=== PATIENT | male | born 1945 | race Caucasian/White ===

== ENCOUNTER 2018-04-26 09:43 | Observation (INO) ==
[2018-04-27 11:48] VITALS: BP 172/73
== END 2018-04-27 13:17 | disposition home or self-care (01) ==
LOC: N.EDINP 09:43 → N.ED 09:43 → N.TELES 14:24
PROVIDERS: ADMIT Internal Medicine Cardiovascular Disease; ATTEND Internal Medicine Cardiovascular Disease

== ENCOUNTER 2019-10-21 10:39 | Inpatient (IN) ==
[2019-10-21] MEDS ORDERED: NITROGLYCERIN 2% OINT 1 INCH/GM PACK TOP STA (10:58)
[2019-10-21] MEDS ORDERED: ASPIRIN 325 MG TABLET PO STA (10:58)
[2019-10-21] MEDS ORDERED: PRASUGREL 10 MG TABLET PO STA ×2 (11:05→14:57)
[2019-10-21 11:12] LABS: INR 0.9; PT Patient Result 10.3 SECS (9.6-12.2); Partial Thromboplastin Time 23.2 SECS (20.8-36.0)
[2019-10-21 11:21] LABS: Albumin 3.5 G/DL (3.4-5.0); Bilirubin,Total 0.4 MG/DL (0.2-1.0); Calcium 8.6 MG/DL (8.5-10.1); Osmolality,Calculated 279.8 MOS/KG (273-304)
[2019-10-21] MEDS ORDERED: ENOXAPARIN 100 MG/ML SYRINGE SUBCUT STA (11:25)
[2019-10-21 11:29] LABS: Basophils # 0.1 10*3/uL (0.0-0.2); Eosinophils # 0.2 10*3/uL (0.0-0.87); Eosinophils % 2.5 % (0.00-10.9); Hematocrit 38.7 VOL% (42.0-52.0); Hemoglobin 12.6 GM/DL (14.0-18.0); Immature Granulocytes % 0.5 %; Immature Granulocytes Absolute 0.04 #; Lymphocytes # 2.2 10*3/uL (1.4-4.0); Lymphocytes % 25.6 % (21.2-54.2); Mean Corpuscular HGB Conc 32.6 GM/DL (32-36); Mean Platelet Volume 11.2 FL (9.6-12.0); Monocytes % 9.1 % (1.7-12.7); Neutrophils % 61.3 % (38.7-73.9); Platelet Count 141 T/CUMM (130-400); White Blood Count 8.7 T/CUMM (4-12)
[2019-10-21] MEDS ORDERED: ALUM/MAG/SIMETH/LIDO VISC 1:1 30 ML BOTTLE PO STA (12:18)
[2019-10-21] MEDS ORDERED: NITROGLYCERIN DRIP 50 MG/250 ML BOTTLE IV ONE ×2 (15:00→19:40)
[2019-10-21 15:03] LABS: Apearance,Urine CLEAR (Clear); Bilirubin,Urine Negative (Negative); Blood, Urine Small mg/dL (Negative); Glucose,Urine (UA) Negative (Negative); Ketones,Urine 5 mg/dL (Negative); Mucus,Urine Occasional /LPF (Occasional); Nitrite,Urine Negative (Negative); Protein,Urine Negative; RBC,Urine 25 /HPF (0-4); Urine Urobilinogen < 2.0 EU/DL (0.2-1.0)
[2019-10-21] MEDS ORDERED: LIDOCAINE 1% 20 ML VIAL ONE (15:09)
[2019-10-21] MEDS ORDERED: HEPARIN/NACL 0.9% 2 UNITS/ML 1,000 ML IV ONE (15:09)
[2019-10-21] MEDS: NITROGLYCERIN DRIP 50 MG/250 ML BOTTLE IV PRN (15:15)
[2019-10-21 15:17] LABS: Urine Color CBN (Yellow)
[2019-10-21] MEDS ORDERED: MIDAZOLAM 2 MG/2 ML VIAL ONE ×3 (16:08→17:51)
[2019-10-21] MEDS ORDERED: fentaNYL 100 MCG/2 ML VIAL ONE (16:08)
[2019-10-21] MEDS ORDERED: ENOXAPARIN 30 MG/0.3 ML SYRINGE ONE (16:26)
[2019-10-21] MEDS ORDERED: EPTIFIBATIDE 75 MG/100 ML BOTTLE IV ONE (16:27)
[2019-10-21] MEDS ORDERED: EPTIFIBATIDE 20,000 MCG/10 ML VIAL ONE (16:27)
[2019-10-21] MEDS ORDERED: HEPARIN/NACL 0.9% 2 UNITS/ML 500 ML IV ONE ×2 (16:46→19:40)
[2019-10-21] MEDS ORDERED: BIVALIRUDIN 250 MG VIAL IV ONE (17:09)
[2019-10-21] MEDS ORDERED: MORPHINE 10 MG/1 ML VIAL ONE (17:13)
[2019-10-21] MEDS ORDERED: MIDAZOLAM 10 MG/2 ML VIAL ONE (18:01)
[2019-10-21] MEDS ORDERED: SUFentanil 250 MCG/5 ML AMP ONE (18:01)
[2019-10-21] MEDS ORDERED: VANCOMYCIN 500 MG VIAL ONE (18:08)
[2019-10-21] MEDS ORDERED: PAPAVERINE 60 MG/2 ML VIAL ONE (18:08)
[2019-10-21] MEDS ORDERED: VANCOMYCIN 1,000 MG VIAL ONE (18:08)
[2019-10-21] MEDS ORDERED: CEFUROXIME 1,500 MG VIAL ONE (18:32)
[2019-10-21] MEDS ORDERED: POTASSIUM CHLORIDE RIDER 100 ML IV ONE ×2 (18:36→23:22)
[2019-10-21] MEDS ORDERED: CALCIUM CHLORIDE 1,000 MG/10 ML SYRINGE IV ONE ×2 (18:36→23:03)
[2019-10-21] MEDS ORDERED: NITROPRUSSIDE 50 MG/2 ML VIAL ONE (18:36)
[2019-10-21] MEDS ORDERED: PHENYLEPHRINE DRIP 40 MG/250 ML PREMIX IV ONE (18:36)
[2019-10-21] MEDS ORDERED: SODIUM BICARBONATE 50 MEQ/50 ML VIAL IV ONE ×4 (18:36→23:03)
[2019-10-21 19:09] LABS: ABG Base Excess -3.7 MMOL/L (-2.5-2.5); ABG HCO3 21.4 MMOL/L (20-26); ABG Oxygen Saturation 99.2 % (95-100); ABG PCO2 35.2 MM HG (35-48); ABG PH 7.379 (7.35-7.45); ABG TCO2 18.4 MMOL/L (23-27); Glucose Heart Surgery 215 MG/DL (74-106); Hematocrit Heart Surgery 37.4 PERCENT (42-52); Hemoglobin Heart Surgery 12.2 G/DL (14.0-18.0); Ionized Calcium Arterial 1.11 MMOL/L (1.21-1.46); PCO2 Patient Temp Arterial 35.2 MMHG; PH Patient Temp Arterial 7.379; Patient Temperature 37 CELCIUS; Potassium Heart/CVR 4.2 MMOL/L (3.5-5.1); Sodium Heart/CVR 135 MMOL/L (135-145)
[2019-10-21] MEDS ORDERED: VECURONIUM 10 MG VIAL IV ONE ×2 (19:40→23:18)
[2019-10-21] MEDS ORDERED: PHENYLEPHRINE DRIP 20 MG/250 ML PREMIX IV ONE (19:40)
[2019-10-21] MEDS ORDERED: AMINOCAPROIC ACID 5,000 MG/20 ML VIAL ONE (19:41)
[2019-10-21 19:46] LABS: Hematocrit Heart Surgery 22.1 PERCENT (42-52); Hemoglobin Heart Surgery 7.1 G/DL (14.0-18.0); PCO2 Patient Temp Venous 35.2 MM HG; PH Patient Temp Venous 7.41; PO2 Patient Temp Venous 44.5 MM HG; Potassium Heart/CVR 4.9 MMOL/L (3.5-5.1); VBG HCO3 22.5 MEQ/L (24-28); VBG Oxygen Saturation 80.9 %; VBG PCO2 35.2 MMHG (41-51); VBG PH 7.41; VBG PO2 44.5 MMHG (17-40)
[2019-10-21 20:20] LABS: Hemoglobin Heart Surgery 7.4 G/DL (14.0-18.0); PCO2 Patient Temp Venous 34.4 MM HG; PH Patient Temp Venous 7.465; PO2 Patient Temp Venous 39.1 MM HG; Potassium Heart/CVR 5.1 MMOL/L (3.5-5.1); VBG Base Excess 1.2 MEQ/L (0-4); VBG HCO3 25.2 MEQ/L (24-28); VBG Oxygen Saturation 75.9 %; VBG PCO2 34.4 MMHG (41-51); VBG PH 7.465; VBG PO2 39.1 MMHG (17-40)
[2019-10-21 20:39] LABS: Apearance,Urine CLEAR (Clear); Bilirubin,Urine Negative (Negative); Blood, Urine Large mg/dL (Negative); Glucose,Urine (UA) Negative (Negative); Ketones,Urine Negative (Negative); Mucus,Urine Occasional /LPF (Occasional); Nitrite,Urine Negative (Negative); Protein,Urine Negative; RBC,Urine 29 /HPF (0-4); Urine Color Yellow (Yellow); Urine Specific Gravity 1.018 (1.001-1.035); Urine Urobilinogen < 2.0 EU/DL (0.2-1.0); WBC,Urine 1 /HPF (0-6)
[2019-10-21] MEDS ORDERED: THROMBIN TOPICAL (RECOMBINANT) 5,000 UNIT VIAL TOP ONE (21:12)
[2019-10-21 21:18] LABS: ABG Base Excess -0.3 MMOL/L (-2.5-2.5); ABG HCO3 24.2 MMOL/L (20-26); ABG Oxygen Saturation 99.6 % (95-100); ABG PCO2 34.4 MM HG (35-48); ABG PH 7.442 (7.35-7.45); ABG TCO2 22.1 MMOL/L (23-27); Glucose Heart Surgery 306 MG/DL (74-106); Hemoglobin Heart Surgery 7.4 G/DL (14.0-18.0); PCO2 Patient Temp Arterial 34.4 MMHG; PH Patient Temp Arterial 7.442; Patient Temperature 37 CELCIUS; Potassium Heart/CVR 4.1 MMOL/L (3.5-5.1); Sodium Heart/CVR 134 MMOL/L (135-145)
[2019-10-21] MEDS ORDERED: DEXTROSE 5% KCL 20 MEQ 20 MEQ/1,000 ML BAG IV ONE (21:20)
[2019-10-21] MEDS ORDERED: LIDOCAINE 2% 5 ML VIAL ONE ×2 (21:20→23:18)
[2019-10-21] MEDS ORDERED: MANNITOL 100 GM/500 ML BAG IV ONE (21:20)
[2019-10-21] MEDS ORDERED: methylPREDNISolone SOD SUC 1,000 MG/8 ML VIAL ONE (21:21)
[2019-10-21] MEDS ORDERED: ALBUMIN 25% 25 GM/100 ML VIAL IV ONE (21:21)
[2019-10-21] MEDS ORDERED: ALBUMIN 5% 12.5 GM/250 ML VIAL IV ONE (21:21)
[2019-10-21] MEDS ORDERED: PROTAMINE SULFATE 250 MG/25 ML VIAL IV ONE (21:21)
[2019-10-21] MEDS ORDERED: FUROSEMIDE 20 MG/2 ML VIAL ONE (21:21)
[2019-10-21] MEDS ORDERED: HEPARIN 10,000 UNIT/10 ML VIAL ONE (21:21)
[2019-10-21] MEDS ORDERED: MAGNESIUM SULFATE 5 GM/10 ML VIAL IV ONE (21:21)
[2019-10-21] MEDS ORDERED: PROTAMINE SULFATE 50 MG/5 ML VIAL IV ONE (21:22)
[2019-10-21] MEDS ORDERED: EPINEPHrine 1 MG/ML VIAL ONE ×2 (22:22→23:18)
[2019-10-21] MEDS: PHENYLEPHRINE DRIP 40 MG/250 ML PREMIX IV PRN (22:40)
[2019-10-21] MEDS: SODIUM CHLORIDE 0.45% 1,000 ML IV SCH ×2 (22:40)
[2019-10-21] MEDS ORDERED: DOBUTamine 500 MG/250 ML PREMIX IV PRN (22:44)
[2019-10-21] MEDS ORDERED: methylPREDNISolone SOD SUC 125 MG/2 ML VIAL IV ONE (23:01)
[2019-10-21] MEDS ORDERED: methylPREDNISolone SOD SUC 40 MG/1 ML VIAL ONE (23:01)
[2019-10-21 23:14] LABS: ABG Base Excess -5.5 MMOL/L (-2.5-2.5); ABG HCO3 19.8 MMOL/L (20-26); ABG Oxygen Saturation 99.7 % (95-100); ABG PCO2 44.1 MM HG (35-48); ABG PH 7.282 (7.35-7.45); ABG TCO2 19.9 MMOL/L (23-27); Glucose Heart Surgery 469 MG/DL (74-106); Hematocrit Heart Surgery 21.4 PERCENT (42-52); Hemoglobin Heart Surgery 6.8 G/DL (14.0-18.0); Potassium Heart/CVR 2.9 MMOL/L (3.5-5.1)
[2019-10-21] MEDS ORDERED: diphenhydrAMINE 50 MG/1 ML VIAL ONE (23:15)
[2019-10-21] MEDS ORDERED: CALCIUM CHLORIDE 1,000 MG/10 ML VIAL IV ONE ×2 (23:18→23:19)
[2019-10-21] MEDS ORDERED: SEVOFLURANE 1 UNIT/15 MINUTE INH ONE (23:18)
[2019-10-21] MEDS ORDERED: ETOMIDATE 40 MG/20 ML VIAL IV ONE (23:18)
[2019-10-21] MEDS ORDERED: DOBUTamine 500 MG/250 ML PREMIX IV ONE (23:18)
[2019-10-21] MEDS ORDERED: SODIUM CHLORIDE 0.9% 1,000 ML IV ONE (23:19)
[2019-10-21] MEDS ORDERED: LACTATED RINGERS 1,000 ML IV ONE (23:19)
[2019-10-21] MEDS ORDERED: SUCCINYLCHOLINE 200 MG/10 ML VIAL ONE (23:19)
[2019-10-21] MEDS ORDERED: SODIUM CHLORIDE 0.9% 250 ML IV ONE (23:19)
[2019-10-21] MEDS ORDERED: SODIUM CHLORIDE 0.9% 100 ML IV ONE (23:19)
[2019-10-21 23:20] LABS: Basophils # 0.1 10*3/uL (0.0-0.2); Basophils % 0.4 % (0.0-0.8); Eosinophils # 0.1 10*3/uL (0.0-0.87); Eosinophils % 0.3 % (0.00-10.9); Hematocrit 20.3 VOL% (42.0-52.0); Immature Granulocytes % 1.5 %; Immature Granulocytes Absolute 0.29 #; Lymphocytes # 3.8 10*3/uL (1.4-4.0); Lymphocytes % 19.9 % (21.2-54.2); Mean Corpuscular Volume 94.4 FL (87-102); Mean Platelet Volume 11.2 FL (9.6-12.0); Monocytes % 8.6 % (1.7-12.7); Neutrophils % 69.3 % (38.7-73.9); Platelet Count 192 T/CUMM (130-400); Red Blood Count 2.15 MC/CUMM (3.8-5.5); Red Cell Distribution Width 14.1 % (9.3-17.3); White Blood Count 19.1 T/CUMM (4-12)
[2019-10-21] MEDS ORDERED: LACTATED RINGERS 250 ML IV PRN (23:22)
[2019-10-21] MEDS ORDERED: ACETAMINOPHEN 650 MG SUPP RECTAL PRN (23:22)
[2019-10-21] MEDS ORDERED: MIDAZOLAM 10 MG/2 ML VIAL IV PRN (23:22)
[2019-10-21] MEDS ORDERED: ONDANSETRON 4 MG/2 ML VIAL IV PRN ×2 (23:22)
[2019-10-21] MEDS ORDERED: NITROGLYCERIN DRIP 50 MG/250 ML BOTTLE IV PRN (23:22)
[2019-10-21] MEDS ORDERED: ENOXAPARIN 40 MG/0.4 ML SYRINGE SUBCUT SCH (23:22)
[2019-10-21] MEDS ORDERED: PRASUGREL 10 MG TABLET PO ONE (23:22)
[2019-10-21] MEDS ORDERED: DEXTROSE 50% 25 GM/50 ML SYRINGE IV PRN ×3 (23:22)
[2019-10-21] MEDS ORDERED: VECURONIUM 10 MG VIAL IV PRN ×2 (23:22)
[2019-10-21] MEDS ORDERED: SODIUM CHLORIDE 0.9% 1,000 ML IV SCH (23:22)
[2019-10-21] MEDS ORDERED: CALCIUM CHLORIDE 1,000 MG/10 ML SYRINGE IV PRN (23:22)
[2019-10-21] MEDS ORDERED: NITROPRUSSIDE 100 MG in DEXTROSE 5% 250 ML IV PRN (23:22)
[2019-10-21] MEDS ORDERED: INSULIN REGULAR 100 UNIT/ML IV ONE (23:22)
[2019-10-21] MEDS ORDERED: GLUCAGON 1 MG VIAL IM PRN (23:22)
[2019-10-21] MEDS ORDERED: MIDAZOLAM 2 MG/2 ML VIAL IV PRN (23:22)
[2019-10-21] MEDS ORDERED: MAGNESIUM SULF RIDER 4 GM in PREMIX 1 EACH IV PRN (23:22)
[2019-10-21] MEDS: POTASSIUM CHLORIDE RIDER 20 MEQ in PREMIX 1 EACH IV PRN (23:23)
[2019-10-21 23:25] LABS: Hemoglobin 6.3 GM/DL (14.0-18.0)
[2019-10-21] MEDS ORDERED: AMIODARONE 150 MG/3 ML VIAL ONE (23:30)
[2019-10-21 23:35] LABS: INR 1.3; PT Patient Result 13.6 SECS (9.6-12.2)
[2019-10-21] MEDS ORDERED: AMIODARONE INJ 150 MG in DEXTROSE 5% 100 ML IV ONE (23:35)
[2019-10-21 23:46] LABS: Albumin 2.1 G/DL (3.4-5.0); Bilirubin,Total 0.6 MG/DL (0.2-1.0); Calcium 9.8 MG/DL (8.5-10.1); Total Protein 4.1 G/DL (6.4-8.3)
[2019-10-21] MEDS: LACTATED RINGERS 1,000 ML IV PRN (23:55)
[2019-10-22 00:02] LABS: ABG Base Excess -9.2 MMOL/L (-2.5-2.5); ABG HCO3 18.3 MMOL/L (20-26); ABG Oxygen Saturation 98.1 % (95-100); ABG PCO2 47.2 MM HG (35-48); ABG PO2 184.1 MM HG (80-95); ABG TCO2 19.8 MMOL/L (23-27); Glucose Heart Surgery 433 MG/DL (74-106); Hemoglobin Heart Surgery 9.8 G/DL (14.0-18.0); Potassium Heart/CVR 3.4 MMOL/L (3.5-5.1)
[2019-10-22 00:03] LABS: ABG PH 7.207 (7.35-7.45)
[2019-10-22 00:20] LABS: CKMB % 6.1 %
[2019-10-22 00:22] LABS: Troponin I > 200.000 NG/ML (0.00-0.045)
[2019-10-22] MEDS: AMIODARONE INJ 450 MG in DEXTROSE 5% 241 ML IV SCH ×3 (00:27→20:59)
[2019-10-22 00:50] LABS: VBG Base Excess -13.2 MEQ/L (0-4); VBG Oxygen Saturation 83.6 %; VBG PCO2 46.4 MMHG (41-51); VBG PH 7.139; VBG PO2 54.9 MMHG (17-40)
[2019-10-22 00:51] LABS: ABG Base Excess -13.3 MMOL/L (-2.5-2.5); ABG HCO3 13.2 MMOL/L (20-26); ABG Oxygen Saturation 99.1 % (95-100); ABG PCO2 32.7 MM HG (35-48); ABG PH 7.225 (7.35-7.45); ABG PO2 388.9 MM HG (80-95); ABG TCO2 14.2 MMOL/L (23-27); Glucose Heart Surgery 423 MG/DL (74-106); Hemoglobin Heart Surgery 10.6 G/DL (14.0-18.0); Potassium Heart/CVR 3.5 MMOL/L (3.5-5.1)
[2019-10-22] MEDS ORDERED: diphenhydrAMINE 50 MG/1 ML VIAL IV ONE (00:52)
[2019-10-22] MEDS ORDERED: SODIUM BICARBONATE 50 MEQ/50 ML VIAL IV ONE ×2 (00:52→03:40)
[2019-10-22] MEDS: DOCUSATE SODIUM 100 MG CAPSULE PO SCH ×3 (00:56→20:16)
[2019-10-22] MEDS: LACTATED RINGERS 1,000 ML IV PRN (01:10)
[2019-10-22] MEDS: PHENYLEPHRINE DRIP 40 MG/250 ML PREMIX IV PRN ×4 (01:16→06:38)
[2019-10-22] MEDS: ALBUMIN 5% 12.5 GM in PREMIX 1 EACH IV PRN ×4 (01:46→11:42)
[2019-10-22] MEDS: POTASSIUM CHLORIDE RIDER 20 MEQ in PREMIX 1 EACH IV PRN ×13 (02:00→21:38)
[2019-10-22] MEDS: INSULIN REGULAR DRIP 100 ML IV SCH ×6 (02:11→21:09)
[2019-10-22] MEDS ORDERED: HALOPERIDOL 5 MG/ML AMP IV STA (02:43)
[2019-10-22] MEDS: POTASSIUM CHLORIDE RIDER 10 MEQ in PREMIX 1 EACH IV PRN ×4 (02:47→21:07)
[2019-10-22 03:10] LABS: ABG Base Excess -18.5 MMOL/L (-2.5-2.5); ABG HCO3 10.6 MMOL/L (20-26); ABG Oxygen Saturation 98.6 % (95-100); ABG PCO2 28.8 MM HG (35-48); ABG TCO2 9.2 MMOL/L (23-27); Glucose Heart Surgery 460 MG/DL (74-106); Hematocrit Heart Surgery 28.2 PERCENT (42-52); Hemoglobin Heart Surgery 9.1 G/DL (14.0-18.0); Potassium Heart/CVR 4.1 MMOL/L (3.5-5.1)
[2019-10-22 03:12] LABS: ABG PH 7.132 (7.35-7.45)
[2019-10-22] MEDS ORDERED: SODIUM BICARBONATE 50 MEQ/50 ML VIAL IV STA ×2 (03:28→05:06)
[2019-10-22] MEDS: INSULIN REGULAR 100 UNIT/ML IV PRN ×8 (03:32→19:00)
[2019-10-22 04:03] LABS: ABG Base Excess -15.6 MMOL/L (-2.5-2.5); ABG HCO3 10.9 MMOL/L (20-26); ABG Oxygen Saturation 98.6 % (95-100); ABG PCO2 27.7 MM HG (35-48); ABG PH 7.212 (7.35-7.45); ABG PO2 236.1 MM HG (80-95); ABG TCO2 11.7 MMOL/L (23-27); Glucose Heart Surgery 409 MG/DL (74-106); Hemoglobin Heart Surgery 8.5 G/DL (14.0-18.0); Potassium Heart/CVR 3.6 MMOL/L (3.5-5.1)
[2019-10-22 04:13] LABS: Basophils # 0.1 10*3/uL (0.0-0.2); Basophils % 0.2 % (0.0-0.8); Immature Granulocytes % 1.1 %; Immature Granulocytes Absolute 0.26 #; Lymphocytes # 1.8 10*3/uL (1.4-4.0); Lymphocytes % 7.5 % (21.2-54.2); Mean Corpuscular HGB Conc 32.4 GM/DL (32-36); Mean Corpuscular Volume 92.3 FL (87-102); Mean Platelet Volume 11.6 FL (9.6-12.0); Monocytes % 7.5 % (1.7-12.7); Neutrophils % 83.7 % (38.7-73.9); Platelet Count 181 T/CUMM (130-400); Red Blood Count 2.71 MC/CUMM (3.8-5.5); Red Cell Distribution Width 14.2 % (9.3-17.3); White Blood Count 23.3 T/CUMM (4-12)
[2019-10-22 04:15] LABS: Hemoglobin 8.1 GM/DL (14.0-18.0)
[2019-10-22 04:27] LABS: Albumin 2.8 G/DL (3.4-5.0); Bilirubin,Direct 0.64 MG/DL (0.0-0.20); Bilirubin,Total 1.2 MG/DL (0.2-1.0); Calcium 7.6 MG/DL (8.5-10.1); Osmolality,Calculated 305.7 MOS/KG (273-304); Total Protein 4.9 G/DL (6.4-8.3)
[2019-10-22 04:31] LABS: Hypochromasia 1+; Platelet Estimate Adequate
[2019-10-22 04:53] LABS: ABG Base Excess -13.9 MMOL/L (-2.5-2.5); ABG HCO3 13.6 MMOL/L (20-26); ABG Oxygen Saturation 99.4 % (95-100); ABG PCO2 28.5 MM HG (35-48); ABG PH 7.244 (7.35-7.45); ABG TCO2 11.6 MMOL/L (23-27); Glucose Heart Surgery 437 MG/DL (74-106); Hematocrit Heart Surgery 28.3 PERCENT (42-52); Hemoglobin Heart Surgery 9.1 G/DL (14.0-18.0); Potassium Heart/CVR 3.9 MMOL/L (3.5-5.1)
[2019-10-22 05:57] LABS: ABG Base Excess -11.2 MMOL/L (-2.5-2.5); ABG HCO3 15.6 MMOL/L (20-26); ABG Oxygen Saturation 99.3 % (95-100); ABG PCO2 26.5 MM HG (35-48); ABG PH 7.322 (7.35-7.45); ABG TCO2 12.6 MMOL/L (23-27); Glucose Heart Surgery 405 MG/DL (74-106); Hematocrit Heart Surgery 29.9 PERCENT (42-52); Hemoglobin Heart Surgery 9.7 G/DL (14.0-18.0); Potassium Heart/CVR 3.2 MMOL/L (3.5-5.1)
[2019-10-22] MEDS: CEFUROXIME INJ 1,500 MG in SODIUM CHLORIDE 0.9% 100 ML IV SCH ×2 (06:15→18:15)
[2019-10-22 07:01] LABS: ABG Base Excess -13.3 MMOL/L (-2.5-2.5); ABG HCO3 11.4 MMOL/L (20-26); ABG Oxygen Saturation 98.2 % (95-100); ABG PCO2 23.5 MM HG (35-48); ABG PH 7.304 (7.35-7.45); ABG PO2 176.8 MM HG (80-95); ABG TCO2 12.1 MMOL/L (23-27); Glucose Heart Surgery 355 MG/DL (74-106); Hemoglobin Heart Surgery 10.1 G/DL (14.0-18.0); Potassium Heart/CVR 3.5 MMOL/L (3.5-5.1)
[2019-10-22] MEDS ORDERED: SODIUM BICARB INJ 100 MEQ in SODIUM CHLORIDE 0.45% 1,000 ML IV SCH (08:00)
[2019-10-22 08:10] LABS: CKMB % 6.8 %
[2019-10-22 08:12] LABS: Troponin I > 200.000 NG/ML (0.00-0.045)
[2019-10-22] MEDS: lisinopriL 10 MG TABLET PO SCH (08:14)
[2019-10-22] MEDS: PANTOPRAZOLE 40 MG TABLET PO SCH (08:14)
[2019-10-22 08:17] LABS: ABG Base Excess -13.4 MMOL/L (-2.5-2.5); ABG HCO3 11.7 MMOL/L (20-26); ABG Oxygen Saturation 98.1 % (95-100); ABG PCO2 24.9 MM HG (35-48); ABG PH 7.289 (7.35-7.45); ABG PO2 171.1 MM HG (80-95); ABG TCO2 12.4 MMOL/L (23-27); Glucose Heart Surgery 341 MG/DL (74-106); Potassium Heart/CVR 3.3 MMOL/L (3.5-5.1)
[2019-10-22] MEDS: ASPIRIN EC 81 MG TABLET PO SCH (08:27)
[2019-10-22] MEDS: CHLORHEXIDINE 0.12% ORAL RINSE 60 ML BOTTLE SWISH/SPIT SCH ×2 (08:27→20:16)
[2019-10-22] MEDS: ROSUVASTATIN 10 MG TABLET PO SCH (08:27)
[2019-10-22] MEDS ORDERED: PHENYLEPHRINE IV PRN (08:30)
[2019-10-22] MEDS ORDERED: SODIUM CHLORIDE 0.9% IV PRN (08:30)
[2019-10-22] MEDS: PHENYLEPHRINE INJ 80 MG in SODIUM CHLORIDE 0.9% 242 ML IV PRN ×2 (08:35→14:28)
[2019-10-22 09:29] LABS: ABG Base Excess -12.9 MMOL/L (-2.5-2.5); ABG HCO3 11.8 MMOL/L (20-26); ABG Oxygen Saturation 98.2 % (95-100); ABG PCO2 23.8 MM HG (35-48); ABG PH 7.313 (7.35-7.45); ABG PO2 172.2 MM HG (80-95); ABG TCO2 12.5 MMOL/L (23-27); Glucose Heart Surgery 333 MG/DL (74-106); Hemoglobin Heart Surgery 9.8 G/DL (14.0-18.0); Potassium Heart/CVR 3.7 MMOL/L (3.5-5.1)
[2019-10-22 09:55] LABS: Calcium 7.8 MG/DL (8.5-10.1); Osmolality,Calculated 312.9 MOS/KG (273-304)
[2019-10-22] MEDS: MAGNESIUM SULF RIDER 2 GM in PREMIX 1 EACH IV PRN (10:08)
[2019-10-22 11:27] LABS: ABG Base Excess -9.6 MMOL/L (-2.5-2.5); ABG HCO3 16.8 MMOL/L (20-26); ABG Oxygen Saturation 99.3 % (95-100); ABG PCO2 28.2 MM HG (35-48); ABG PH 7.338 (7.35-7.45); Glucose Heart Surgery 333 MG/DL (74-106); Hematocrit Heart Surgery 29.6 PERCENT (42-52); Hemoglobin Heart Surgery 9.6 G/DL (14.0-18.0); Potassium Heart/CVR 3.3 MMOL/L (3.5-5.1)
[2019-10-22] MEDS ORDERED: ALBUMIN 5% 12.5 GM/250 ML VIAL IV ONE ×2 (11:28→11:39)
[2019-10-22] MEDS ORDERED: AMIODARONE 150 MG/3 ML VIAL ONE (11:39)
[2019-10-22] MEDS ORDERED: AMIODARONE INJ 50 MG in DEXTROSE 5% 100 ML IV ONE (11:40)
[2019-10-22] MEDS ORDERED: SODIUM BICARB INJ 100 MEQ in STERILE WATER INJ 1,000 ML IV SCH (13:30)
[2019-10-22 13:56] LABS: ABG Base Excess -8.1 MMOL/L (-2.5-2.5); ABG HCO3 17.8 MMOL/L (20-26); ABG Oxygen Saturation 99.4 % (95-100); ABG PH 7.368 (7.35-7.45); ABG TCO2 14.8 MMOL/L (23-27); Glucose Heart Surgery 301 MG/DL (74-106); Hematocrit Heart Surgery 29.5 PERCENT (42-52); Hemoglobin Heart Surgery 9.5 G/DL (14.0-18.0); Potassium Heart/CVR 3.9 MMOL/L (3.5-5.1)
[2019-10-22] MEDS: MINERAL OIL/PETROLATUM OPH OINT 3.5 GM TUBE BOTH EYES PRN (13:56)
[2019-10-22 14:20] LABS: Calcium 7.8 MG/DL (8.5-10.1); Osmolality,Calculated 300.6 MOS/KG (273-304)
[2019-10-22 16:29] LABS: CKMB % 8.2 %
[2019-10-22 16:31] LABS: Troponin I > 200.000 NG/ML (0.00-0.045)
[2019-10-22 16:34] LABS: Bilirubin,Total 0.6 MG/DL (0.2-1.0); Calcium 7.5 MG/DL (8.5-10.1); Osmolality,Calculated 299.4 MOS/KG (273-304)
[2019-10-22 17:06] LABS: ABG Base Excess -2.4 MMOL/L (-2.5-2.5); ABG HCO3 22.4 MMOL/L (20-26); ABG Oxygen Saturation 99.4 % (95-100); ABG PCO2 27.8 MM HG (35-48); ABG PH 7.473 (7.35-7.45); ABG TCO2 18.5 MMOL/L (23-27); Glucose Heart Surgery 240 MG/DL (74-106); Hematocrit Heart Surgery 29.3 PERCENT (42-52); Hemoglobin Heart Surgery 9.5 G/DL (14.0-18.0); Potassium Heart/CVR 3.8 MMOL/L (3.5-5.1)
[2019-10-22 17:22] LABS: Calcium 7.9 MG/DL (8.5-10.1); Osmolality,Calculated 297.6 MOS/KG (273-304)
[2019-10-22] MEDS ORDERED: FUROSEMIDE 40 MG/4 ML VIAL IV ONE (18:28)
[2019-10-22 20:07] LABS: ABG Base Excess -0.5 MMOL/L (-2.5-2.5); ABG HCO3 21.5 MMOL/L (20-26); ABG PCO2 26.2 MM HG (35-48); ABG PH 7.531 (7.35-7.45); ABG PO2 134.5 MM HG (80-95); ABG TCO2 22.3 MMOL/L (23-27); Glucose Heart Surgery 156 MG/DL (74-106); Hemoglobin Heart Surgery 9.5 G/DL (14.0-18.0); Potassium Heart/CVR 3.9 MMOL/L (3.5-5.1)
[2019-10-22] MEDS: ALBUMIN 25% 25 GM in PREMIX 1 EACH IV SCH (20:11)
[2019-10-22 21:52] LABS: Calcium 8.1 MG/DL (8.5-10.1); Osmolality,Calculated 289.7 MOS/KG (273-304)
[2019-10-22] MEDS: MORPHINE 4 MG/1 ML VIAL IV PRN (22:17)
[2019-10-22] MEDS: SODIUM CHLORIDE 0.45% 1,000 ML IV SCH ×2 (23:03)
[2019-10-22 23:05] LABS: ABG HCO3 26.2 MMOL/L (20-26); ABG Oxygen Saturation 99.5 % (95-100); ABG PCO2 27.7 MM HG (35-48); ABG PH 7.545 (7.35-7.45); ABG TCO2 22.1 MMOL/L (23-27); Glucose Heart Surgery 102 MG/DL (74-106); Hematocrit Heart Surgery 26.4 PERCENT (42-52); Hemoglobin Heart Surgery 8.5 G/DL (14.0-18.0); Potassium Heart/CVR 4.1 MMOL/L (3.5-5.1)
[2019-10-22] MEDS ORDERED: AMIODARONE INJ 150 MG in DEXTROSE 5% 100 ML IV ONE (23:35)
[2019-10-22 23:45] LABS: CKMB % 7.1 %
[2019-10-23] MEDS ORDERED: HEPARIN/NACL 0.9% 2 UNITS/ML 500 ML IV ONE (01:29)
[2019-10-23 01:40] LABS: ABG HCO3 27.1 MMOL/L (20-26); ABG Oxygen Saturation 99.5 % (95-100); ABG PCO2 26.5 MM HG (35-48); ABG PH 7.575 (7.35-7.45); ABG TCO2 22.7 MMOL/L (23-27); Glucose Heart Surgery 88 MG/DL (74-106); Hematocrit Heart Surgery 26.2 PERCENT (42-52); Hemoglobin Heart Surgery 8.4 G/DL (14.0-18.0); Potassium Heart/CVR 4.2 MMOL/L (3.5-5.1)
[2019-10-23 01:56] LABS: Osmolality,Calculated 285.8 MOS/KG (273-304)
[2019-10-23] MEDS: FUROSEMIDE 40 MG/4 ML VIAL IV PRN ×3 (02:26→21:09)
[2019-10-23 03:47] LABS: ABG Base Excess 2.9 MMOL/L (-2.5-2.5); ABG Oxygen Saturation 99.3 % (95-100); ABG PCO2 25.8 MM HG (35-48); ABG PH 7.581 (7.35-7.45); ABG TCO2 22.4 MMOL/L (23-27); Glucose Heart Surgery 98 MG/DL (74-106); Hematocrit Heart Surgery 26.7 PERCENT (42-52); Hemoglobin Heart Surgery 8.6 G/DL (14.0-18.0)
[2019-10-23 03:50] LABS: Basophils % 0.1 % (0.0-0.8); Hematocrit 24.3 VOL% (42.0-52.0); Hemoglobin 8.4 GM/DL (14.0-18.0); Immature Granulocytes % 0.9 %; Immature Granulocytes Absolute 0.23 #; Lymphocytes # 2.5 10*3/uL (1.4-4.0); Lymphocytes % 9.7 % (21.2-54.2); Mean Corpuscular HGB Conc 34.6 GM/DL (32-36); Mean Corpuscular Volume 86.8 FL (87-102); Mean Platelet Volume 11.8 FL (9.6-12.0); Monocytes % 8.6 % (1.7-12.7); NRBC # 0.02 10*3/uL; Neutrophils % 80.7 % (38.7-73.9); Red Cell Distribution Width 14.5 % (9.3-17.3); White Blood Count 25.5 T/CUMM (4-12)
[2019-10-23] MEDS: MORPHINE 4 MG/1 ML VIAL IV PRN (04:11)
[2019-10-23] MEDS: AMIODARONE INJ 450 MG in DEXTROSE 5% 241 ML IV SCH ×2 (04:12→12:46)
[2019-10-23 04:15] LABS: Band Neutrophils 15 % (0-10)
[2019-10-23 04:16] LABS: Lymphocytes 9 % (20-55); Metamyelocytes 3 %; Myelocytes 1 %; Segmented Neutrophils 63 % (50-85)
[2019-10-23 04:17] LABS: Albumin 3.3 G/DL (3.4-5.0); Bilirubin,Direct 0.34 MG/DL (0.0-0.20); Bilirubin,Total 0.8 MG/DL (0.2-1.0); Osmolality,Calculated 290.6 MOS/KG (273-304); Total Protein 5.2 G/DL (6.4-8.3)
[2019-10-23 04:19] LABS: Platelet Estimate Decreased
[2019-10-23 04:21] LABS: Total Cells Counted 100
[2019-10-23 04:22] LABS: Platelet Count 96 T/CUMM (130-400)
[2019-10-23] MEDS: MINERAL OIL/PETROLATUM OPH OINT 3.5 GM TUBE BOTH EYES PRN (05:00)
[2019-10-23] MEDS: MAGNESIUM SULF RIDER 2 GM in PREMIX 1 EACH IV PRN (05:02)
[2019-10-23] MEDS: ALBUMIN 25% 25 GM in PREMIX 1 EACH IV SCH ×3 (05:10→20:55)
[2019-10-23] MEDS: INSULIN REGULAR DRIP 100 ML IV SCH ×2 (06:00→09:08)
[2019-10-23] MEDS: CEFUROXIME INJ 1,500 MG in SODIUM CHLORIDE 0.9% 100 ML IV SCH (06:10)
[2019-10-23 08:11] LABS: ABG Base Excess 1.5 MMOL/L (-2.5-2.5); ABG HCO3 25.8 MMOL/L (20-26); ABG Oxygen Saturation 99.4 % (95-100); ABG PCO2 26.2 MM HG (35-48); ABG PH 7.555 (7.35-7.45); ABG TCO2 21.3 MMOL/L (23-27); Glucose Heart Surgery 158 MG/DL (74-106); Hematocrit Heart Surgery 27.5 PERCENT (42-52); Hemoglobin Heart Surgery 8.9 G/DL (14.0-18.0); Potassium Heart/CVR 4.3 MMOL/L (3.5-5.1)
[2019-10-23 08:29] LABS: Calcium 7.7 MG/DL (8.5-10.1); Osmolality,Calculated 287.1 MOS/KG (273-304)
[2019-10-23] MEDS: PANTOPRAZOLE 40 MG TABLET PO SCH (08:46)
[2019-10-23] MEDS: lisinopriL 10 MG TABLET PO SCH (08:46)
[2019-10-23] MEDS: ROSUVASTATIN 10 MG TABLET PO SCH (08:46)
[2019-10-23] MEDS: DOCUSATE SODIUM 100 MG CAPSULE PO SCH ×2 (08:47→20:18)
[2019-10-23] MEDS: ASPIRIN EC 81 MG TABLET PO SCH (08:47)
[2019-10-23] MEDS: CHLORHEXIDINE 0.12% ORAL RINSE 60 ML BOTTLE SWISH/SPIT SCH ×2 (09:14→21:11)
[2019-10-23 10:04] LABS: ABG Base Excess 0.7 MMOL/L (-2.5-2.5); ABG HCO3 23.4 MMOL/L (20-26); ABG Oxygen Saturation 97.7 % (95-100); ABG PCO2 30.4 MM HG (35-48); ABG PH 7.505 (7.35-7.45); ABG PO2 115.4 MM HG (80-95); ABG TCO2 24.4 MMOL/L (23-27)
[2019-10-23 10:13] LABS: Hemoglobin 8.7 GM/DL (14.0-18.0)
[2019-10-23] MEDS: ALBUMIN 5% 12.5 GM in PREMIX 1 EACH IV PRN (11:59)
[2019-10-23 12:32] LABS: Calcium 7.8 MG/DL (8.5-10.1); Osmolality,Calculated 287.1 MOS/KG (273-304)
[2019-10-23 13:57] LABS: ABG Base Excess 1.7 MMOL/L (-2.5-2.5); ABG Oxygen Saturation 99.1 % (95-100); ABG PCO2 31.8 MM HG (35-48); ABG PH 7.496 (7.35-7.45); ABG TCO2 22.5 MMOL/L (23-27); Glucose Heart Surgery 118 MG/DL (74-106); Hematocrit Heart Surgery 28.7 PERCENT (42-52); Hemoglobin Heart Surgery 9.3 G/DL (14.0-18.0); Potassium Heart/CVR 4.2 MMOL/L (3.5-5.1)
[2019-10-23] MEDS: SODIUM CHLORIDE 0.45% 1,000 ML IV SCH ×3 (15:27→23:20)
[2019-10-23 16:17] LABS: Calcium 7.9 MG/DL (8.5-10.1); Osmolality,Calculated 284.3 MOS/KG (273-304)
[2019-10-23] MEDS: ACETAMINOPHEN 325 MG TABLET PO PRN (16:58)
[2019-10-23 17:14] LABS: ABG Base Excess 1.6 MMOL/L (-2.5-2.5); ABG HCO3 25.9 MMOL/L (20-26); ABG Oxygen Saturation 98.3 % (95-100); ABG PCO2 32.7 MM HG (35-48); ABG PH 7.484 (7.35-7.45); ABG TCO2 22.1 MMOL/L (23-27); Glucose Heart Surgery 129 MG/DL (74-106); Hematocrit Heart Surgery 32.6 PERCENT (42-52); Hemoglobin Heart Surgery 10.5 G/DL (14.0-18.0); Potassium Heart/CVR 4.3 MMOL/L (3.5-5.1)
[2019-10-23 19:51] LABS: ABG Base Excess 0.2 MMOL/L (-2.5-2.5); ABG HCO3 23.1 MMOL/L (20-26); ABG Oxygen Saturation 97.4 % (95-100); ABG PCO2 31.3 MM HG (35-48); ABG PH 7.485 (7.35-7.45); ABG PO2 102.8 MM HG (80-95); Glucose Heart Surgery 135 MG/DL (74-106); Hemoglobin Heart Surgery 10.5 G/DL (14.0-18.0); Potassium Heart/CVR 4.4 MMOL/L (3.5-5.1)
[2019-10-23 20:24] LABS: Calcium 7.5 MG/DL (8.5-10.1); Osmolality,Calculated 288.1 MOS/KG (273-304)
[2019-10-23] MEDS: PANTOPRAZOLE 40 MG VIAL IV SCH (20:55)
[2019-10-23] MEDS: CEFUROXIME INJ 1,500 MG in SYRINGE 1 EACH IV SCH (21:00)
[2019-10-23] MEDS: NITROGLYCERIN DRIP 50 MG/250 ML BOTTLE IV PRN (22:00)
[2019-10-23 22:30] LABS: ABG Base Excess 1.1 MMOL/L (-2.5-2.5); ABG HCO3 25.4 MMOL/L (20-26); ABG Oxygen Saturation 98.7 % (95-100); ABG PCO2 32.1 MM HG (35-48); ABG PH 7.482 (7.35-7.45); ABG TCO2 21.8 MMOL/L (23-27); Glucose Heart Surgery 153 MG/DL (74-106); Hematocrit Heart Surgery 31.1 PERCENT (42-52); Hemoglobin Heart Surgery 10.1 G/DL (14.0-18.0); Potassium Heart/CVR 4.2 MMOL/L (3.5-5.1)
[2019-10-24 00:50] LABS: ABG Base Excess 1.8 MMOL/L (-2.5-2.5); ABG HCO3 26.1 MMOL/L (20-26); ABG Oxygen Saturation 98.7 % (95-100); ABG PCO2 33.1 MM HG (35-48); ABG PH 7.485 (7.35-7.45); ABG TCO2 22.7 MMOL/L (23-27); Glucose Heart Surgery 144 MG/DL (74-106); Hematocrit Heart Surgery 29.5 PERCENT (42-52); Hemoglobin Heart Surgery 9.5 G/DL (14.0-18.0); Potassium Heart/CVR 4.1 MMOL/L (3.5-5.1)
[2019-10-24] MEDS: INSULIN REGULAR DRIP 100 ML IV SCH (00:53)
[2019-10-24 01:17] LABS: Calcium 7.7 MG/DL (8.5-10.1); Osmolality,Calculated 287.3 MOS/KG (273-304)
[2019-10-24] MEDS: AMIODARONE INJ 450 MG in DEXTROSE 5% 241 ML IV SCH ×2 (03:57→20:10)
[2019-10-24 04:07] LABS: Basophils % 0.1 % (0.0-0.8); Hematocrit 30.8 VOL% (42.0-52.0); Hemoglobin 10.6 GM/DL (14.0-18.0); Immature Granulocytes % 1.4 %; Immature Granulocytes Absolute 0.35 #; Lymphocytes # 2.3 10*3/uL (1.4-4.0); Mean Corpuscular HGB Conc 34.4 GM/DL (32-36); Mean Corpuscular Volume 87.7 FL (87-102); Mean Platelet Volume 12.1 FL (9.6-12.0); Monocytes % 6.9 % (1.7-12.7); NRBC # 0.07 10*3/uL; Neutrophils % 82.6 % (38.7-73.9); Platelet Count 70 T/CUMM (130-400); Red Blood Count 3.51 MC/CUMM (3.8-5.5); Red Cell Distribution Width 15.4 % (9.3-17.3); White Blood Count 25.4 T/CUMM (4-12)
[2019-10-24 04:20] LABS: Albumin 3.6 G/DL (3.4-5.0); Bilirubin,Direct 0.6 MG/DL (0.0-0.20); Bilirubin,Total 1.2 MG/DL (0.2-1.0); Calcium 7.7 MG/DL (8.5-10.1); Osmolality,Calculated 285.3 MOS/KG (273-304); Total Protein 5.5 G/DL (6.4-8.3)
[2019-10-24 04:25] LABS: ABG Base Excess 0.7 MMOL/L (-2.5-2.5); ABG HCO3 23.8 MMOL/L (20-26); ABG Oxygen Saturation 97.7 % (95-100); ABG PCO2 32.8 MM HG (35-48); ABG PH 7.478 (7.35-7.45); ABG PO2 108.8 MM HG (80-95); ABG TCO2 24.8 MMOL/L (23-27); Glucose Heart Surgery 123 MG/DL (74-106); Hemoglobin Heart Surgery 11.3 G/DL (14.0-18.0)
[2019-10-24 04:26] LABS: Band Neutrophils 3 % (0-10); Hypochromasia 1+; Lymphocytes 11 % (20-55); Platelet Estimate Decreased; Segmented Neutrophils 79 % (50-85); Total Cells Counted 100
[2019-10-24] MEDS: ALBUMIN 25% 25 GM in PREMIX 1 EACH IV SCH ×3 (05:13→21:26)
[2019-10-24] MEDS: FUROSEMIDE 40 MG/4 ML VIAL IV PRN ×2 (07:05→14:15)
[2019-10-24] MEDS: MORPHINE 4 MG/1 ML VIAL IV PRN ×3 (07:25→18:42)
[2019-10-24] MEDS: ROSUVASTATIN 10 MG TABLET PO SCH (08:03)
[2019-10-24] MEDS: ASPIRIN EC 81 MG TABLET PO SCH (08:03)
[2019-10-24] MEDS: lisinopriL 10 MG TABLET PO SCH (08:03)
[2019-10-24] MEDS: DOCUSATE SODIUM 100 MG CAPSULE PO SCH ×2 (08:03→21:18)
[2019-10-24] MEDS: PANTOPRAZOLE 40 MG VIAL IV SCH ×2 (08:04→21:12)
[2019-10-24] MEDS: CEFUROXIME INJ 1,500 MG in SYRINGE 1 EACH IV SCH ×2 (08:05→21:20)
[2019-10-24 08:14] LABS: ABG Base Excess 1.9 MMOL/L (-2.5-2.5); ABG HCO3 26.1 MMOL/L (20-26); ABG Oxygen Saturation 98.3 % (95-100); ABG PCO2 34.8 MM HG (35-48); ABG PH 7.469 (7.35-7.45); ABG TCO2 22.8 MMOL/L (23-27); Glucose Heart Surgery 125 MG/DL (74-106); Hematocrit Heart Surgery 32.3 PERCENT (42-52); Hemoglobin Heart Surgery 10.5 G/DL (14.0-18.0); Potassium Heart/CVR 4.2 MMOL/L (3.5-5.1)
[2019-10-24] MEDS: CHLORHEXIDINE 0.12% ORAL RINSE 60 ML BOTTLE SWISH/SPIT SCH ×2 (09:18→21:18)
[2019-10-24] MEDS: ACETAMINOPHEN 325 MG TABLET PO PRN (12:14)
[2019-10-24 12:44] LABS: Apearance,Urine CLEAR (Clear); Bacteria,Urine Occasional /HPF (Few); Bilirubin,Urine Negative (Negative); Blood, Urine Small mg/dL (Negative); Glucose,Urine (UA) Negative (Negative); Hyaline Casts,Urine 4 /LPF (0-3); Ketones,Urine 5 mg/dL (Negative); Mucus,Urine Occasional /LPF (Occasional); Nitrite,Urine Negative (Negative); Protein,Urine Negative; RBC,Urine 1 /HPF (0-4); Urine Color Yellow (Yellow); Urine Specific Gravity 1.024 (1.001-1.035); Urine Urobilinogen < 2.0 EU/DL (0.2-1.0); WBC,Urine <1 /HPF (0-6)
[2019-10-24 13:10] LABS: ABG Base Excess 1.4 MMOL/L (-2.5-2.5); ABG HCO3 25.6 MMOL/L (20-26); ABG Oxygen Saturation 96.3 % (95-100); ABG PH 7.477 (7.35-7.45); ABG PO2 78.9 MM HG (80-95); ABG TCO2 21.8 MMOL/L (23-27); Glucose Heart Surgery 126 MG/DL (74-106); Hematocrit Heart Surgery 34.5 PERCENT (42-52); Hemoglobin Heart Surgery 11.2 G/DL (14.0-18.0); Potassium Heart/CVR 4.5 MMOL/L (3.5-5.1)
[2019-10-24 13:45] LABS: ABG Base Excess 1.3 MMOL/L (-2.5-2.5); ABG HCO3 25.5 MMOL/L (20-26); ABG Oxygen Saturation 97.3 % (95-100); ABG PCO2 30.4 MM HG (35-48); ABG PH 7.501 (7.35-7.45); ABG PO2 84.7 MM HG (80-95); ABG TCO2 21.3 MMOL/L (23-27)
[2019-10-24 15:08] LABS: ABG Base Excess 0.1 MMOL/L (-2.5-2.5); ABG HCO3 23.5 MMOL/L (20-26); ABG Oxygen Saturation 98.4 % (95-100); ABG PCO2 34.1 MM HG (35-48); ABG PH 7.457 (7.35-7.45); ABG PO2 179.3 MM HG (80-95); ABG TCO2 24.6 MMOL/L (23-27); Glucose Heart Surgery 112 MG/DL (74-106); Hemoglobin Heart Surgery 11.1 G/DL (14.0-18.0); Potassium Heart/CVR 4.2 MMOL/L (3.5-5.1)
[2019-10-24 18:06] LABS: ABG Base Excess -1.4 MMOL/L (-2.5-2.5); ABG HCO3 21.3 MMOL/L (20-26); ABG Oxygen Saturation 96.6 % (95-100); ABG PCO2 29.5 MM HG (35-48); ABG PH 7.476 (7.35-7.45); ABG PO2 92.2 MM HG (80-95); ABG TCO2 22.2 MMOL/L (23-27); Glucose Heart Surgery 133 MG/DL (74-106); Hemoglobin Heart Surgery 11.4 G/DL (14.0-18.0); Potassium Heart/CVR 4.8 MMOL/L (3.5-5.1)
[2019-10-24] MEDS: ALBUTEROL/IPRATROPIUM 3 ML NEB RESP TX SCH (18:58)
[2019-10-24 20:03] LABS: VBG PH 7.423
[2019-10-24] MEDS: INSULIN REGULAR 100 UNIT/ML SUBCUT SCH (20:11)
[2019-10-24 20:29] LABS: Hematocrit Heart Surgery 34.7 PERCENT (42-52); Hemoglobin Heart Surgery 11.3 G/DL (14.0-18.0); PCO2 Patient Temp Venous 32.2 MM HG; PH Patient Temp Venous 7.457; PO2 Patient Temp Venous 41.6 MM HG; Potassium Heart/CVR 4.9 MMOL/L (3.5-5.1); VBG Base Excess -0.5 MEQ/L (0-4); VBG HCO3 23.6 MEQ/L (24-28); VBG Oxygen Saturation 75.3 %; VBG PCO2 32.2 MMHG (41-51); VBG PH 7.457; VBG PO2 41.6 MMHG (17-40)
[2019-10-24 22:09] LABS: ABG Base Excess -1.8 MMOL/L (-2.5-2.5); ABG HCO3 22.9 MMOL/L (20-26); ABG Oxygen Saturation 95.3 % (95-100); ABG PCO2 28.9 MM HG (35-48); ABG PH 7.468 (7.35-7.45); ABG PO2 75.6 MM HG (80-95); ABG TCO2 18.7 MMOL/L (23-27); Glucose Heart Surgery 166 MG/DL (74-106); Hematocrit Heart Surgery 33.8 PERCENT (42-52); Potassium Heart/CVR 4.7 MMOL/L (3.5-5.1)
[2019-10-24] MEDS ORDERED: AMIODARONE INJ 450 MG in DEXTROSE 5% 241 ML IV SCH (23:00)
[2019-10-24] MEDS ORDERED: AMIODARONE INJ 100 MG in DEXTROSE 5% 100 ML IV ONE (23:00)
[2019-10-25 00:04] LABS: Hematocrit Heart Surgery 33.5 PERCENT (42-52); Hemoglobin Heart Surgery 10.9 G/DL (14.0-18.0); PH Patient Temp Venous 7.411; PO2 Patient Temp Venous 42.9 MM HG; Potassium Heart/CVR 4.6 MMOL/L (3.5-5.1); VBG Base Excess -0.7 MEQ/L (0-4); VBG HCO3 23.4 MEQ/L (24-28); VBG Oxygen Saturation 73.8 %; VBG PH 7.411; VBG PO2 42.9 MMHG (17-40)
[2019-10-25] MEDS: ALBUTEROL/IPRATROPIUM 3 ML NEB RESP TX SCH ×4 (00:27→19:09)
[2019-10-25] MEDS: SODIUM CHLORIDE 0.45% 1,000 ML IV SCH ×2 (00:34→00:35)
[2019-10-25] MEDS: INSULIN REGULAR DRIP 100 ML IV SCH (00:35)
[2019-10-25] MEDS: INSULIN REGULAR 100 UNIT/ML SUBCUT SCH ×7 (00:42→23:33)
[2019-10-25 04:27] LABS: Basophils % 0.2 % (0.0-0.8); Hematocrit 31.1 VOL% (42.0-52.0); Hemoglobin 10.4 GM/DL (14.0-18.0); Immature Granulocytes % 0.8 %; Immature Granulocytes Absolute 0.15 #; Lymphocytes # 1.5 10*3/uL (1.4-4.0); Lymphocytes % 7.6 % (21.2-54.2); Mean Corpuscular HGB Conc 33.4 GM/DL (32-36); Mean Corpuscular Volume 90.1 FL (87-102); Mean Platelet Volume 12.6 FL (9.6-12.0); Monocytes % 5.4 % (1.7-12.7); NRBC # 0.16 10*3/uL; Platelet Count 48 T/CUMM (130-400); Red Blood Count 3.45 MC/CUMM (3.8-5.5); Red Cell Distribution Width 15.6 % (9.3-17.3)
[2019-10-25 04:46] LABS: Albumin 3.8 G/DL (3.4-5.0); Band Neutrophils 3 % (0-10); Bilirubin,Total 3.1 MG/DL (0.2-1.0); Calcium 7.9 MG/DL (8.5-10.1); Lymphocytes 4 % (20-55); Nucleated Red Blood Cells 1 (0-5); Osmolality,Calculated 293.4 MOS/KG (273-304); Platelet Estimate Decreased; Segmented Neutrophils 91 % (50-85); Total Cells Counted 100; Total Protein 5.8 G/DL (6.4-8.3)
[2019-10-25 04:47] LABS: Hypochromasia Slight
[2019-10-25] MEDS: FUROSEMIDE 40 MG/4 ML VIAL IV PRN (05:15)
[2019-10-25] MEDS: ALBUMIN 25% 25 GM in PREMIX 1 EACH IV SCH ×3 (05:28→20:28)
[2019-10-25] MEDS ORDERED: AMIODARONE INJ 450 MG in DEXTROSE 5% 241 ML IV SCH (06:13)
[2019-10-25] MEDS: DOCUSATE SODIUM 100 MG CAPSULE PO SCH ×2 (09:06→20:29)
[2019-10-25] MEDS: lisinopriL 10 MG TABLET PO SCH (09:06)
[2019-10-25] MEDS: ASPIRIN EC 81 MG TABLET PO SCH (09:06)
[2019-10-25] MEDS: ROSUVASTATIN 10 MG TABLET PO SCH (09:06)
[2019-10-25] MEDS: PANTOPRAZOLE 40 MG VIAL IV SCH ×2 (09:06→20:27)
[2019-10-25] MEDS: CHLORHEXIDINE 0.12% ORAL RINSE 60 ML BOTTLE SWISH/SPIT SCH ×2 (09:07→20:30)
[2019-10-25] MEDS: MORPHINE 4 MG/1 ML VIAL IV PRN ×2 (09:07→13:29)
[2019-10-25] MEDS: CEFUROXIME INJ 1,500 MG in SYRINGE 1 EACH IV SCH ×2 (09:08→20:29)
[2019-10-25] MEDS: ASCORBIC ACID 500 MG TABLET PO SCH ×2 (09:30→20:29)
[2019-10-25] MEDS: MORPHINE 10 MG/1 ML VIAL IV PRN (11:12)
[2019-10-25] MEDS ORDERED: KETOROLAC 30 MG/1 ML VIAL IV PRN (13:10)
[2019-10-25] MEDS: AMIODARONE 200 MG TABLET PO SCH ×2 (13:19→20:30)
[2019-10-25] MEDS ORDERED: oxyCODONE/ACETAMINOPHEN 5-325 MG TABLET PO PRN (14:04)
[2019-10-25] MEDS ORDERED: IBUPROFEN 800 MG TABLET PO PRN (14:22)
[2019-10-25] MEDS: METOPROLOL TARTRATE 25 MG TABLET PO SCH (20:29)
[2019-10-25] MEDS: SIMETHICONE CHEW 125 MG TABLET PO PRN (22:00)
[2019-10-26] MEDS: ALBUTEROL/IPRATROPIUM 3 ML NEB RESP TX SCH ×4 (00:45→19:35)
[2019-10-26] MEDS: ALBUMIN 25% 25 GM in PREMIX 1 EACH IV SCH ×3 (05:15→20:11)
[2019-10-26 06:21] LABS: Basophils % 0.2 % (0.0-0.8); Hematocrit 32.9 VOL% (42.0-52.0); Hemoglobin 10.7 GM/DL (14.0-18.0); Immature Granulocytes % 1.1 %; Immature Granulocytes Absolute 0.26 #; Lymphocytes # 2.1 10*3/uL (1.4-4.0); Lymphocytes % 9.2 % (21.2-54.2); Mean Corpuscular HGB Conc 32.5 GM/DL (32-36); Mean Corpuscular Volume 92.2 FL (87-102); Mean Platelet Volume 13.4 FL (9.6-12.0); NRBC # 0.56 10*3/uL; Neutrophils % 80.5 % (38.7-73.9); Platelet Count 66 T/CUMM (130-400); Red Blood Count 3.57 MC/CUMM (3.8-5.5); Red Cell Distribution Width 15.3 % (9.3-17.3); White Blood Count 23.1 T/CUMM (4-12)
[2019-10-26 07:06] LABS: Calcium 8.1 MG/DL (8.5-10.1); Osmolality,Calculated 296.3 MOS/KG (273-304)
[2019-10-26 07:14] LABS: Albumin 3.9 G/DL (3.4-5.0); Bilirubin,Total 3.4 MG/DL (0.2-1.0); Calcium 8.2 MG/DL (8.5-10.1); Osmolality,Calculated 294.3 MOS/KG (273-304)
[2019-10-26] MEDS: INSULIN REGULAR 100 UNIT/ML SUBCUT SCH ×5 (07:20→20:15)
[2019-10-26] MEDS: CEFUROXIME INJ 1,500 MG in SYRINGE 1 EACH IV SCH ×2 (08:25→20:13)
[2019-10-26] MEDS: DOCUSATE SODIUM 100 MG CAPSULE PO SCH ×2 (08:26→20:14)
[2019-10-26] MEDS: METOPROLOL TARTRATE 25 MG TABLET PO SCH ×2 (08:26→20:13)
[2019-10-26] MEDS: PANTOPRAZOLE 40 MG VIAL IV SCH ×2 (08:26→20:14)
[2019-10-26] MEDS ORDERED: BISACODYL 10 MG SUPP RECTAL PRN (08:26)
[2019-10-26] MEDS: AMIODARONE 200 MG TABLET PO SCH ×2 (08:27→20:13)
[2019-10-26] MEDS: ASCORBIC ACID 500 MG TABLET PO SCH ×2 (08:27→20:15)
[2019-10-26] MEDS: ROSUVASTATIN 10 MG TABLET PO SCH (08:27)
[2019-10-26] MEDS: SIMETHICONE CHEW 125 MG TABLET PO PRN (08:27)
[2019-10-26] MEDS: ASPIRIN EC 81 MG TABLET PO SCH (08:27)
[2019-10-26] MEDS: lisinopriL 10 MG TABLET PO SCH (08:27)
[2019-10-26] MEDS: CHLORHEXIDINE 0.12% ORAL RINSE 60 ML BOTTLE SWISH/SPIT SCH ×2 (08:28→20:14)
[2019-10-26] MEDS: TAMSULOSIN 0.4 MG CAPSULE PO SCH (09:48)
[2019-10-26] MEDS: VITAMIN E 400 UNIT CAPSULE PO SCH (09:48)
[2019-10-26] MEDS: COENZYME Q10 100 MG CAPSULE PO SCH (09:48)
[2019-10-26] MEDS: LACTOBACILLUS ACIDOPHILUS/BULGARICUS CAPLET PO SCH (09:48)
[2019-10-26] MEDS: PSYLLIUM POWDER 3.7 GM/PACK PO SCH (09:49)
[2019-10-26 10:09] LABS: Lymphocytes 11 % (20-55); Nucleated Red Blood Cells 1 (0-5); Platelet Estimate Decreased; Polychromasia Slight; Segmented Neutrophils 83 % (50-85); Total Cells Counted 100
[2019-10-26] MEDS ORDERED: FUROSEMIDE 40 MG/4 ML VIAL IV ONE (11:02)
[2019-10-26] MEDS: POLYETHYLENE GLYCOL POWDER 17 GM PACK PO SCH (11:28)
[2019-10-26] MEDS ORDERED: MAGNESIUM CITRATE 300 ML BOTTLE PO ONE (16:27)
[2019-10-26] MEDS: DOBUTamine 500 MG/250 ML PREMIX IV SCH (16:42)
[2019-10-26] MEDS: MORPHINE 4 MG/1 ML VIAL IV PRN (17:55)
[2019-10-26] MEDS: FUROSEMIDE 40 MG/4 ML VIAL IV SCH (20:14)
[2019-10-27] MEDS: ALBUTEROL/IPRATROPIUM 3 ML NEB RESP TX SCH ×4 (00:38→19:45)
[2019-10-27] MEDS: INSULIN REGULAR 100 UNIT/ML SUBCUT SCH ×7 (00:46→23:20)
[2019-10-27] MEDS: ALBUMIN 25% 25 GM in PREMIX 1 EACH IV SCH ×3 (04:20→21:28)
[2019-10-27 05:55] LABS: Basophils # 0.1 10*3/uL (0.0-0.2); Basophils % 0.3 % (0.0-0.8); Eosinophils % 0.1 % (0.00-10.9); Hematocrit 33.3 VOL% (42.0-52.0); Hemoglobin 10.7 GM/DL (14.0-18.0); Immature Granulocytes % 2.2 %; Immature Granulocytes Absolute 0.45 #; Lymphocytes # 2.2 10*3/uL (1.4-4.0); Lymphocytes % 10.6 % (21.2-54.2); Mean Corpuscular HGB Conc 32.1 GM/DL (32-36); Mean Corpuscular Volume 94.1 FL (87-102); Mean Platelet Volume 12.7 FL (9.6-12.0); Monocytes % 10.3 % (1.7-12.7); NRBC # 0.35 10*3/uL; Neutrophils % 76.5 % (38.7-73.9); Platelet Count 71 T/CUMM (130-400); Red Blood Count 3.54 MC/CUMM (3.8-5.5); Red Cell Distribution Width 15.7 % (9.3-17.3); White Blood Count 20.5 T/CUMM (4-12)
[2019-10-27 06:28] LABS: Albumin 4.7 G/DL (3.4-5.0); Bilirubin,Total 3.8 MG/DL (0.2-1.0); Calcium 8.3 MG/DL (8.5-10.1); Osmolality,Calculated 292.5 MOS/KG (273-304); Total Protein 6.7 G/DL (6.4-8.3)
[2019-10-27 06:53] LABS: Calcium 8.3 MG/DL (8.5-10.1); Osmolality,Calculated 294.4 MOS/KG (273-304)
[2019-10-27 06:58] LABS: Lymphocytes 15 % (20-55); Nucleated Red Blood Cells 1 (0-5); Segmented Neutrophils 76 % (50-85); Total Cells Counted 100
[2019-10-27 07:00] LABS: Anisocytosis 2+; Polychromasia Few
[2019-10-27 07:01] LABS: Elliptocytes Few; Platelet Estimate Decreased
[2019-10-27] MEDS: POLYETHYLENE GLYCOL POWDER 17 GM PACK PO SCH (09:22)
[2019-10-27] MEDS: CEFUROXIME INJ 1,500 MG in SYRINGE 1 EACH IV SCH (09:22)
[2019-10-27] MEDS: COENZYME Q10 100 MG CAPSULE PO SCH (09:22)
[2019-10-27] MEDS: SIMETHICONE CHEW 125 MG TABLET PO PRN (09:22)
[2019-10-27] MEDS: FUROSEMIDE 40 MG/4 ML VIAL IV SCH ×2 (09:23→15:16)
[2019-10-27] MEDS: LACTOBACILLUS ACIDOPHILUS/BULGARICUS CAPLET PO SCH (09:24)
[2019-10-27] MEDS: DOCUSATE SODIUM 100 MG CAPSULE PO SCH ×2 (09:25→21:29)
[2019-10-27] MEDS: PSYLLIUM POWDER 3.7 GM/PACK PO SCH (09:25)
[2019-10-27] MEDS: lisinopriL 10 MG TABLET PO SCH (09:25)
[2019-10-27] MEDS: VITAMIN E 400 UNIT CAPSULE PO SCH (09:25)
[2019-10-27] MEDS: ROSUVASTATIN 10 MG TABLET PO SCH (09:26)
[2019-10-27] MEDS: ASPIRIN EC 81 MG TABLET PO SCH (09:26)
[2019-10-27] MEDS: AMIODARONE 200 MG TABLET PO SCH ×2 (09:26→21:29)
[2019-10-27] MEDS: ASCORBIC ACID 500 MG TABLET PO SCH ×2 (09:26→21:30)
[2019-10-27] MEDS: METOPROLOL TARTRATE 25 MG TABLET PO SCH ×2 (09:27→21:29)
[2019-10-27] MEDS: TAMSULOSIN 0.4 MG CAPSULE PO SCH (09:28)
[2019-10-27] MEDS: PANTOPRAZOLE 40 MG VIAL IV SCH ×2 (09:28→21:29)
[2019-10-27] MEDS: CHLORHEXIDINE 0.12% ORAL RINSE 60 ML BOTTLE SWISH/SPIT SCH ×2 (09:28→21:30)
[2019-10-27] MEDS: ALBUMIN 5% 12.5 GM in PREMIX 1 EACH IV PRN ×2 (12:09→12:10)
[2019-10-27] MEDS: CEFEPIME 1,000 MG in SODIUM CHLORIDE 0.9% 100 ML IV SCH ×2 (15:15→21:30)
[2019-10-27] MEDS: DOBUTamine 500 MG/250 ML PREMIX IV SCH (16:39)
[2019-10-28] MEDS: ALBUTEROL/IPRATROPIUM 3 ML NEB RESP TX SCH ×4 (01:17→19:43)
[2019-10-28] MEDS: ALBUMIN 25% 25 GM in PREMIX 1 EACH IV SCH ×2 (04:39→12:00)
[2019-10-28] MEDS: CEFEPIME 1,000 MG in SODIUM CHLORIDE 0.9% 100 ML IV SCH ×4 (04:39→21:57)
[2019-10-28] MEDS: INSULIN REGULAR 100 UNIT/ML SUBCUT SCH ×5 (04:49→20:17)
[2019-10-28 05:39] LABS: Basophils % 0.2 % (0.0-0.8); Eosinophils # 0.1 10*3/uL (0.0-0.87); Eosinophils % 0.7 % (0.00-10.9); Hematocrit 31.8 VOL% (42.0-52.0); Hemoglobin 10.1 GM/DL (14.0-18.0); Immature Granulocytes Absolute 0.53 #; Lymphocytes # 1.6 10*3/uL (1.4-4.0); Lymphocytes % 9.1 % (21.2-54.2); Mean Corpuscular HGB Conc 31.8 GM/DL (32-36); Mean Corpuscular Volume 94.9 FL (87-102); Mean Platelet Volume 13.6 FL (9.6-12.0); Monocytes % 10.4 % (1.7-12.7); NRBC # 0.17 10*3/uL; Neutrophils % 76.6 % (38.7-73.9); Platelet Count 76 T/CUMM (130-400); Red Blood Count 3.35 MC/CUMM (3.8-5.5); White Blood Count 17.4 T/CUMM (4-12)
[2019-10-28] MEDS ORDERED: AMIODARONE INJ 100 MG in DEXTROSE 5% 100 ML IV ONE ×2 (06:08→06:10)
[2019-10-28 06:11] LABS: Albumin 3.9 G/DL (3.4-5.0); Bilirubin,Total 2.6 MG/DL (0.2-1.0); Calcium 8.1 MG/DL (8.5-10.1); Osmolality,Calculated 284.8 MOS/KG (273-304); Total Protein 6.4 G/DL (6.4-8.3)
[2019-10-28 06:14] LABS: Band Neutrophils 3 % (0-10); Hypochromasia 1+; Lymphocytes 7 % (20-55); Ovalocytes Slight; Platelet Estimate Decreased; Segmented Neutrophils 80 % (50-85); Total Cells Counted 100
[2019-10-28] MEDS: METOPROLOL TARTRATE 25 MG TABLET PO SCH ×2 (08:21→21:57)
[2019-10-28] MEDS: ROSUVASTATIN 10 MG TABLET PO SCH (08:22)
[2019-10-28] MEDS: COENZYME Q10 100 MG CAPSULE PO SCH (08:22)
[2019-10-28] MEDS: VITAMIN E 400 UNIT CAPSULE PO SCH (08:22)
[2019-10-28] MEDS: lisinopriL 10 MG TABLET PO SCH (08:22)
[2019-10-28] MEDS: ASCORBIC ACID 500 MG TABLET PO SCH ×2 (08:22→21:57)
[2019-10-28] MEDS: ASPIRIN EC 81 MG TABLET PO SCH (08:22)
[2019-10-28] MEDS: FUROSEMIDE 40 MG/4 ML VIAL IV SCH ×2 (08:22→16:10)
[2019-10-28] MEDS: DOCUSATE SODIUM 100 MG CAPSULE PO SCH ×2 (08:22→21:57)
[2019-10-28] MEDS: TAMSULOSIN 0.4 MG CAPSULE PO SCH (08:22)
[2019-10-28] MEDS: AMIODARONE 200 MG TABLET PO SCH ×2 (08:22→21:57)
[2019-10-28] MEDS: POLYETHYLENE GLYCOL POWDER 17 GM PACK PO SCH (08:23)
[2019-10-28] MEDS: PSYLLIUM POWDER 3.7 GM/PACK PO SCH (08:23)
[2019-10-28] MEDS: PANTOPRAZOLE 40 MG VIAL IV SCH ×2 (08:23→21:58)
[2019-10-28] MEDS: CHLORHEXIDINE 0.12% ORAL RINSE 60 ML BOTTLE SWISH/SPIT SCH ×2 (08:24→22:17)
[2019-10-28] MEDS: LACTOBACILLUS ACIDOPHILUS/BULGARICUS CAPLET PO SCH (08:27)
[2019-10-28] MEDS ORDERED: ALBUMIN 25% 25 GM in PREMIX 1 EACH IV SCH (09:00)
[2019-10-28] MEDS ORDERED: ALBUTEROL/IPRATROPIUM 3 ML NEB RESP TX PRN (13:24)
[2019-10-29] MEDS: INSULIN REGULAR 100 UNIT/ML SUBCUT SCH ×6 (00:53→22:28)
[2019-10-29] MEDS: ALBUTEROL/IPRATROPIUM 3 ML NEB RESP TX SCH ×4 (01:11→19:10)
[2019-10-29] MEDS: MORPHINE 4 MG/1 ML VIAL IV PRN (01:21)
[2019-10-29] MEDS: CEFEPIME 1,000 MG in SODIUM CHLORIDE 0.9% 100 ML IV SCH ×4 (05:08→22:48)
[2019-10-29 05:39] LABS: Basophils % 0.2 % (0.0-0.8); Eosinophils % 0.2 % (0.00-10.9); Hematocrit 31.7 VOL% (42.0-52.0); Hemoglobin 10.1 GM/DL (14.0-18.0); Immature Granulocytes % 3.9 %; Immature Granulocytes Absolute 0.75 #; Lymphocytes # 1.7 10*3/uL (1.4-4.0); Lymphocytes % 8.6 % (21.2-54.2); Mean Corpuscular HGB Conc 31.9 GM/DL (32-36); Mean Corpuscular Volume 94.1 FL (87-102); Mean Platelet Volume 11.9 FL (9.6-12.0); Monocytes % 12.5 % (1.7-12.7); NRBC # 0.17 10*3/uL; Neutrophils % 74.6 % (38.7-73.9); Platelet Count 112 T/CUMM (130-400); Red Blood Count 3.37 MC/CUMM (3.8-5.5); Red Cell Distribution Width 16.1 % (9.3-17.3); White Blood Count 19.4 T/CUMM (4-12)
[2019-10-29 05:57] LABS: Calcium 8.1 MG/DL (8.5-10.1); Osmolality,Calculated 288.7 MOS/KG (273-304)
[2019-10-29 06:13] LABS: Bilirubin,Direct 2.18 MG/DL (0.0-0.20); Bilirubin,Indirect 1.8 MG/DL (0.0-1.0); Total Protein 6.3 G/DL (6.4-8.3)
[2019-10-29 06:19] LABS: Anisocytosis 2+; Band Neutrophils 11 % (0-10); Eosinophils 1 % (0-10); Lymphocytes 6 % (20-55); Nucleated Red Blood Cells 1 (0-5); Platelet Estimate Adequate; Polychromasia Slight; Segmented Neutrophils 68 % (50-85); Total Cells Counted 100
[2019-10-29] MEDS: FUROSEMIDE 40 MG/4 ML VIAL IV SCH ×2 (07:45→15:42)
[2019-10-29] MEDS: MORPHINE 10 MG/1 ML VIAL IV PRN ×5 (07:46→16:14)
[2019-10-29] MEDS: POLYETHYLENE GLYCOL POWDER 17 GM PACK PO SCH (08:35)
[2019-10-29] MEDS: ALBUMIN 25% 25 GM in PREMIX 1 EACH IV SCH (08:35)
[2019-10-29] MEDS: PSYLLIUM POWDER 3.7 GM/PACK PO SCH (08:35)
[2019-10-29] MEDS: ASCORBIC ACID 500 MG TABLET PO SCH ×2 (08:36→22:28)
[2019-10-29] MEDS: TAMSULOSIN 0.4 MG CAPSULE PO SCH (08:36)
[2019-10-29] MEDS: COENZYME Q10 100 MG CAPSULE PO SCH (08:36)
[2019-10-29] MEDS: AMIODARONE 200 MG TABLET PO SCH ×2 (08:36→22:29)
[2019-10-29] MEDS: lisinopriL 10 MG TABLET PO SCH (08:36)
[2019-10-29] MEDS: VITAMIN E 400 UNIT CAPSULE PO SCH (08:36)
[2019-10-29] MEDS: ROSUVASTATIN 10 MG TABLET PO SCH (08:37)
[2019-10-29] MEDS: ASPIRIN EC 81 MG TABLET PO SCH (08:37)
[2019-10-29] MEDS: METOPROLOL TARTRATE 25 MG TABLET PO SCH (08:37)
[2019-10-29] MEDS: DOCUSATE SODIUM 100 MG CAPSULE PO SCH ×2 (08:37→22:29)
[2019-10-29] MEDS ORDERED: DILTIAZEM 50 MG/10 ML VIAL IV ONE ×2 (08:43)
[2019-10-29] MEDS: LACTOBACILLUS ACIDOPHILUS/BULGARICUS CAPLET PO SCH (08:59)
[2019-10-29] MEDS: CHLORHEXIDINE 0.12% ORAL RINSE 60 ML BOTTLE SWISH/SPIT SCH ×2 (09:00→22:29)
[2019-10-29] MEDS: PANTOPRAZOLE 40 MG VIAL IV SCH ×2 (09:10→22:36)
[2019-10-29] MEDS: DOBUTamine 500 MG/250 ML PREMIX IV SCH (09:15)
[2019-10-29] MEDS: dilTIAZem Drip 125 MG/125 ML PREMIX IV SCH (09:19)
[2019-10-29] MEDS: LEVOFLOXACIN INJ 500 MG in PREMIX 1 EACH IV SCH (15:51)
[2019-10-29] MEDS ORDERED: ALBUMIN 5% 25 GM in PREMIX 1 EACH IV ONE (19:49)
[2019-10-29] MEDS ORDERED: FUROSEMIDE 40 MG/4 ML VIAL IV ONE (21:30)
[2019-10-30] MEDS: INSULIN REGULAR 100 UNIT/ML SUBCUT SCH ×6 (00:34→20:34)
[2019-10-30] MEDS: ALBUTEROL/IPRATROPIUM 3 ML NEB RESP TX SCH ×4 (01:12→20:15)
[2019-10-30] MEDS: CEFEPIME 1,000 MG in SODIUM CHLORIDE 0.9% 100 ML IV SCH ×2 (05:34→09:06)
[2019-10-30 06:22] LABS: Basophils % 0.1 % (0.0-0.8); Eosinophils # 0.1 10*3/uL (0.0-0.87); Eosinophils % 0.3 % (0.00-10.9); Hematocrit 29.2 VOL% (42.0-52.0); Hemoglobin 9.5 GM/DL (14.0-18.0); Immature Granulocytes Absolute 0.37 #; Lymphocytes # 1.8 10*3/uL (1.4-4.0); Mean Corpuscular HGB Conc 32.5 GM/DL (32-36); Mean Corpuscular Volume 92.1 FL (87-102); Mean Platelet Volume 11.5 FL (9.6-12.0); Monocytes % 10.6 % (1.7-12.7); NRBC # 0.11 10*3/uL; Platelet Count 144 T/CUMM (130-400); Red Blood Count 3.17 MC/CUMM (3.8-5.5); Red Cell Distribution Width 16.1 % (9.3-17.3); White Blood Count 18.2 T/CUMM (4-12)
[2019-10-30 06:43] LABS: Albumin 3.8 G/DL (3.4-5.0); Bilirubin,Total 3.6 MG/DL (0.2-1.0); Calcium 8.1 MG/DL (8.5-10.1); Total Protein 5.9 G/DL (6.4-8.3)
[2019-10-30 06:54] LABS: CKMB % 1.3 %
[2019-10-30 06:56] LABS: Troponin I 8.53 NG/ML (0.00-0.045)
[2019-10-30] MEDS: FUROSEMIDE 40 MG/4 ML VIAL IV SCH ×2 (08:53→15:54)
[2019-10-30] MEDS: ALBUMIN 25% 25 GM in PREMIX 1 EACH IV SCH (08:53)
[2019-10-30] MEDS: VITAMIN E 400 UNIT CAPSULE PO SCH (08:54)
[2019-10-30] MEDS: ASPIRIN EC 81 MG TABLET PO SCH (08:54)
[2019-10-30] MEDS: lisinopriL 10 MG TABLET PO SCH (08:54)
[2019-10-30] MEDS: PANTOPRAZOLE 40 MG VIAL IV SCH ×2 (08:54→20:34)
[2019-10-30] MEDS: LACTOBACILLUS ACIDOPHILUS/BULGARICUS CAPLET PO SCH (08:54)
[2019-10-30] MEDS: AMIODARONE 200 MG TABLET PO SCH ×2 (08:54→20:35)
[2019-10-30] MEDS: COENZYME Q10 100 MG CAPSULE PO SCH (08:54)
[2019-10-30] MEDS: ASCORBIC ACID 500 MG TABLET PO SCH ×2 (08:54→20:35)
[2019-10-30] MEDS: TAMSULOSIN 0.4 MG CAPSULE PO SCH (08:55)
[2019-10-30] MEDS: DOCUSATE SODIUM 100 MG CAPSULE PO SCH ×2 (08:55→20:35)
[2019-10-30] MEDS: DOBUTamine 500 MG/250 ML PREMIX IV SCH (08:55)
[2019-10-30] MEDS: ROSUVASTATIN 10 MG TABLET PO SCH (08:55)
[2019-10-30] MEDS: PSYLLIUM POWDER 3.7 GM/PACK PO SCH (08:56)
[2019-10-30] MEDS: POLYETHYLENE GLYCOL POWDER 17 GM PACK PO SCH (08:58)
[2019-10-30] MEDS: CHLORHEXIDINE 0.12% ORAL RINSE 60 ML BOTTLE SWISH/SPIT SCH ×2 (09:04→20:35)
[2019-10-30] MEDS: dilTIAZem Drip 125 MG/125 ML PREMIX IV SCH ×2 (09:04→20:30)
[2019-10-30] MEDS ORDERED: DORNASE ALFA 2.5 MG/2.5 ML VIAL RESP TX SCH (10:04)
[2019-10-30] MEDS: DORNASE ALFA 2.5 MG/2.5 ML VIAL RESP TX SCH ×2 (10:25→20:15)
[2019-10-30] MEDS ORDERED: APIXABAN 5 MG TABLET PO ONE (12:25)
[2019-10-30] MEDS: LEVOFLOXACIN INJ 500 MG in PREMIX 1 EACH IV SCH (15:53)
[2019-10-30 20:15] LABS: ABG Base Excess 2.7 MMOL/L (-2.5-2.5); ABG HCO3 26.7 MMOL/L (20-26); ABG Oxygen Saturation 93.2 % (95-100); ABG PCO2 28.4 MM HG (35-48); ABG PH 7.545 (7.35-7.45); ABG PO2 62.2 MM HG (80-95); ABG TCO2 22.2 MMOL/L (23-27); Allen Test Positive; Pt O2 Delivery Device CPAP
[2019-10-30] MEDS: methylPREDNISolone SOD SUC 40 MG/1 ML VIAL IV SCH (20:34)
[2019-10-30] MEDS: APIXABAN 5 MG TABLET PO SCH (20:36)
[2019-10-31] MEDS: INSULIN REGULAR 100 UNIT/ML SUBCUT SCH ×6 (00:30→21:35)
[2019-10-31] MEDS: ALBUTEROL/IPRATROPIUM 3 ML NEB RESP TX SCH ×4 (01:55→19:16)
[2019-10-31 04:46] LABS: ABG Base Excess 2.3 MMOL/L (-2.5-2.5); ABG HCO3 23.8 MMOL/L (20-26); ABG Oxygen Saturation 90.8 % (95-100); ABG PCO2 27.1 MM HG (35-48); ABG PH 7.562 (7.35-7.45); ABG PO2 57.9 MM HG (80-95); ABG TCO2 24.7 MMOL/L (23-27); Allen Test Positive; Pt O2 Delivery Device BIPAP
[2019-10-31] MEDS: methylPREDNISolone SOD SUC 40 MG/1 ML VIAL IV SCH ×3 (04:52→21:36)
[2019-10-31 05:53] LABS: ABG Base Excess 3.3 MMOL/L (-2.5-2.5); ABG HCO3 27.3 MMOL/L (20-26); ABG Oxygen Saturation 94.7 % (95-100); ABG PCO2 29.2 MM HG (35-48); ABG PH 7.545 (7.35-7.45); ABG TCO2 22.8 MMOL/L (23-27); Allen Test Positive; Pt O2 Delivery Device CPAP
[2019-10-31 06:14] LABS: Basophils % 0.2 % (0.0-0.8); Hematocrit 34.8 VOL% (42.0-52.0); Hemoglobin 11.2 GM/DL (14.0-18.0); Immature Granulocytes % 1.5 %; Immature Granulocytes Absolute 0.37 #; Lymphocytes # 0.8 10*3/uL (1.4-4.0); Lymphocytes % 3.3 % (21.2-54.2); Mean Corpuscular HGB Conc 32.2 GM/DL (32-36); Mean Corpuscular Volume 91.8 FL (87-102); Mean Platelet Volume 11.1 FL (9.6-12.0); Monocytes % 4.6 % (1.7-12.7); NRBC # 0.04 10*3/uL; Neutrophils % 90.4 % (38.7-73.9); Platelet Count 192 T/CUMM (130-400); Red Blood Count 3.79 MC/CUMM (3.8-5.5); Red Cell Distribution Width 16.7 % (9.3-17.3); White Blood Count 25.2 T/CUMM (4-12)
[2019-10-31 06:42] LABS: Hypochromasia 1+; Lymphocytes 1 % (20-55); Platelet Estimate Adequate; Segmented Neutrophils 96 % (50-85); Total Cells Counted 100
[2019-10-31 06:53] LABS: Albumin 3.9 G/DL (3.4-5.0); Bilirubin,Total 2.9 MG/DL (0.2-1.0); Calcium 8.6 MG/DL (8.5-10.1); Osmolality,Calculated 294.8 MOS/KG (273-304); Total Protein 6.8 G/DL (6.4-8.3)
[2019-10-31] MEDS: DORNASE ALFA 2.5 MG/2.5 ML VIAL RESP TX SCH ×2 (07:56→19:16)
[2019-10-31] MEDS: ASCORBIC ACID 500 MG TABLET PO SCH ×2 (09:03→21:36)
[2019-10-31] MEDS: COENZYME Q10 100 MG CAPSULE PO SCH (09:03)
[2019-10-31] MEDS: PSYLLIUM POWDER 3.7 GM/PACK PO SCH (09:03)
[2019-10-31] MEDS: LACTOBACILLUS ACIDOPHILUS/BULGARICUS CAPLET PO SCH (09:03)
[2019-10-31] MEDS: APIXABAN 5 MG TABLET PO SCH ×2 (09:04→21:37)
[2019-10-31] MEDS: VITAMIN E 400 UNIT CAPSULE PO SCH (09:04)
[2019-10-31] MEDS: AMIODARONE 200 MG TABLET PO SCH ×2 (09:04→21:36)
[2019-10-31] MEDS: ASPIRIN EC 81 MG TABLET PO SCH (09:04)
[2019-10-31] MEDS: TAMSULOSIN 0.4 MG CAPSULE PO SCH (09:04)
[2019-10-31] MEDS: ROSUVASTATIN 10 MG TABLET PO SCH (09:04)
[2019-10-31] MEDS: PANTOPRAZOLE 40 MG VIAL IV SCH ×2 (09:05→21:36)
[2019-10-31] MEDS: DILTIAZEM CD 120 MG CAPSULE PO SCH (09:05)
[2019-10-31] MEDS: POLYETHYLENE GLYCOL POWDER 17 GM PACK PO SCH (09:05)
[2019-10-31] MEDS: DOCUSATE SODIUM 100 MG CAPSULE PO SCH ×2 (09:05→21:37)
[2019-10-31] MEDS: CHLORHEXIDINE 0.12% ORAL RINSE 60 ML BOTTLE SWISH/SPIT SCH ×2 (09:08→21:37)
[2019-10-31] MEDS: DOBUTamine 500 MG/250 ML PREMIX IV SCH (09:08)
[2019-10-31] MEDS: ALBUMIN 25% 25 GM in PREMIX 1 EACH IV SCH (09:13)
[2019-10-31] MEDS: FUROSEMIDE 40 MG/4 ML VIAL IV SCH (11:15)
[2019-10-31] MEDS: LEVOFLOXACIN INJ 500 MG in PREMIX 1 EACH IV SCH (17:14)
[2019-10-31] MEDS: GABAPENTIN 100 MG CAPSULE PO SCH (21:37)
[2019-11-01] MEDS: ALBUTEROL/IPRATROPIUM 3 ML NEB RESP TX SCH ×4 (00:44→13:31)
[2019-11-01] MEDS: INSULIN REGULAR 100 UNIT/ML SUBCUT SCH ×4 (00:47→11:33)
[2019-11-01] MEDS: methylPREDNISolone SOD SUC 40 MG/1 ML VIAL IV SCH (04:59)
[2019-11-01 05:38] LABS: Basophils % 0.2 % (0.0-0.8); Hematocrit 29.4 VOL% (42.0-52.0); Hemoglobin 9.6 GM/DL (14.0-18.0); Immature Granulocytes % 1.2 %; Immature Granulocytes Absolute 0.31 #; Lymphocytes # 0.8 10*3/uL (1.4-4.0); Lymphocytes % 3.2 % (21.2-54.2); Mean Corpuscular HGB Conc 32.7 GM/DL (32-36); Mean Corpuscular Volume 90.7 FL (87-102); Mean Platelet Volume 11.5 FL (9.6-12.0); Monocytes % 5.5 % (1.7-12.7); NRBC # 0.03 10*3/uL; Neutrophils % 89.9 % (38.7-73.9); Platelet Count 207 T/CUMM (130-400); Red Blood Count 3.24 MC/CUMM (3.8-5.5); Red Cell Distribution Width 16.7 % (9.3-17.3); White Blood Count 26.3 T/CUMM (4-12)
[2019-11-01 06:02] LABS: Hypochromasia 1+; Lymphocytes 4 % (20-55); Nucleated Red Blood Cells 1 (0-5); Ovalocytes Slight; Platelet Estimate Adequate; Segmented Neutrophils 88 % (50-85); Total Cells Counted 100
[2019-11-01 06:02] LABS: Calcium 8.3 MG/DL (8.5-10.1); Osmolality,Calculated 302.8 MOS/KG (273-304)
[2019-11-01] MEDS: DORNASE ALFA 2.5 MG/2.5 ML VIAL RESP TX SCH ×2 (08:11→19:49)
[2019-11-01] MEDS: POLYETHYLENE GLYCOL POWDER 17 GM PACK PO SCH (08:49)
[2019-11-01] MEDS: ASPIRIN EC 81 MG TABLET PO SCH (08:49)
[2019-11-01] MEDS: ALBUMIN 25% 25 GM in PREMIX 1 EACH IV SCH (08:49)
[2019-11-01] MEDS: PSYLLIUM POWDER 3.7 GM/PACK PO SCH (08:49)
[2019-11-01] MEDS: DOCUSATE SODIUM 100 MG CAPSULE PO SCH ×2 (08:50→21:22)
[2019-11-01] MEDS: AMIODARONE 200 MG TABLET PO SCH (08:50)
[2019-11-01] MEDS: VITAMIN E 400 UNIT CAPSULE PO SCH (08:50)
[2019-11-01] MEDS: DILTIAZEM CD 120 MG CAPSULE PO SCH (08:50)
[2019-11-01] MEDS: ASCORBIC ACID 500 MG TABLET PO SCH ×2 (08:50→21:22)
[2019-11-01] MEDS: COENZYME Q10 100 MG CAPSULE PO SCH (08:50)
[2019-11-01] MEDS: PANTOPRAZOLE 40 MG VIAL IV SCH (08:51)
[2019-11-01] MEDS: DOBUTamine 500 MG/250 ML PREMIX IV SCH (08:51)
[2019-11-01] MEDS: TAMSULOSIN 0.4 MG CAPSULE PO SCH (08:51)
[2019-11-01] MEDS: ROSUVASTATIN 10 MG TABLET PO SCH (08:51)
[2019-11-01] MEDS: APIXABAN 5 MG TABLET PO SCH ×2 (08:51→21:23)
[2019-11-01] MEDS: GABAPENTIN 100 MG CAPSULE PO SCH ×2 (08:51→21:23)
[2019-11-01] MEDS: CHLORHEXIDINE 0.12% ORAL RINSE 60 ML BOTTLE SWISH/SPIT SCH ×2 (08:52→21:23)
[2019-11-01] MEDS: LACTOBACILLUS ACIDOPHILUS/BULGARICUS CAPLET PO SCH (10:11)
[2019-11-01] MEDS: POTASSIUM CHLORIDE 20 MEQ TABLET PO PRN ×2 (10:11→13:36)
[2019-11-01] MEDS ORDERED: MAGNESIUM HYDROXIDE SUSP 30 ML UDCUP PO PRN (13:28)
[2019-11-01] MEDS ORDERED: ZALEPLON 5 MG CAPSULE PO PRN (13:28)
[2019-11-01] MEDS ORDERED: MAGNESIUM SULF RIDER 4 GM in PREMIX 1 EACH IV PRN (13:28)
[2019-11-01] MEDS ORDERED: ALUMINUM/MAGNES/SIMETH MAX STR 30 ML UDCUP PO PRN (13:28)
[2019-11-01] MEDS ORDERED: DEXTROSE 10% 250 ML BAG IV PRN ×2 (13:28→21:38)
[2019-11-01] MEDS ORDERED: SODIUM CHLOR 0.45% KCL 20 MEQ 20 MEQ/1,000 ML BAG IV SCH (13:28)
[2019-11-01] MEDS ORDERED: GLUCAGON 1 MG VIAL IM PRN ×2 (13:28→21:35)
[2019-11-01] MEDS ORDERED: ACETAMINOPHEN 325 MG TABLET PO PRN (13:28)
[2019-11-01] MEDS ORDERED: POTASSIUM CHLORIDE 20 MEQ TABLET PO PRN (13:28)
[2019-11-01] MEDS ORDERED: ONDANSETRON 4 MG/2 ML VIAL IV PRN (13:28)
[2019-11-01] MEDS ORDERED: MAGNESIUM SULF RIDER 2 GM in PREMIX 1 EACH IV PRN (13:28)
[2019-11-01] MEDS: MULTIVITAMIN (CENTRUM) TABLET PO SCH (14:48)
[2019-11-01] MEDS: LEVOFLOXACIN INJ 500 MG in PREMIX 1 EACH IV SCH (15:25)
[2019-11-01] MEDS ORDERED: methylPREDNISolone SOD SUC 40 MG/1 ML VIAL IV SCH (17:00)
[2019-11-01] MEDS: metFORMIN 500 MG TABLET PO SCH (21:22)
[2019-11-02 05:12] LABS: Basophils % 0.1 % (0.0-0.8); Hematocrit 28.9 VOL% (42.0-52.0); Hemoglobin 9.5 GM/DL (14.0-18.0); Immature Granulocytes % 1.2 %; Immature Granulocytes Absolute 0.31 #; Lymphocytes % 3.9 % (21.2-54.2); Mean Corpuscular HGB Conc 32.9 GM/DL (32-36); Mean Corpuscular Volume 90.6 FL (87-102); Mean Platelet Volume 11.6 FL (9.6-12.0); Monocytes % 6.5 % (1.7-12.7); NRBC # 0.02 10*3/uL; Neutrophils % 88.3 % (38.7-73.9); Platelet Count 222 T/CUMM (130-400); Red Blood Count 3.19 MC/CUMM (3.8-5.5); Red Cell Distribution Width 16.6 % (9.3-17.3); White Blood Count 24.9 T/CUMM (4-12)
[2019-11-02 05:49] LABS: Calcium 8.4 MG/DL (8.5-10.1); Osmolality,Calculated 307.4 MOS/KG (273-304)
[2019-11-02 05:54] LABS: Lymphocytes 6 % (20-55); Platelet Estimate Adequate; Segmented Neutrophils 89 % (50-85); Total Cells Counted 100
[2019-11-02 05:55] LABS: Hypochromasia Slight
[2019-11-02 06:04] LABS: Albumin 3.9 G/DL (3.4-5.0); Bilirubin,Direct 0.92 MG/DL (0.0-0.20); Bilirubin,Indirect 1.1 MG/DL (0.0-1.0); CKMB % 0.8 %; Calcium 8.4 MG/DL (8.5-10.1); Osmolality,Calculated 309.2 MOS/KG (273-304); Total Protein 6.2 G/DL (6.4-8.3)
[2019-11-02 06:08] LABS: Troponin I 3.65 NG/ML (0.00-0.045)
[2019-11-02] MEDS: DORNASE ALFA 2.5 MG/2.5 ML VIAL RESP TX SCH ×2 (07:25→19:33)
[2019-11-02] MEDS ORDERED: INSULIN REGULAR 100 UNIT/ML SUBCUT SCH (07:30)
[2019-11-02] MEDS: COENZYME Q10 100 MG CAPSULE PO SCH (09:43)
[2019-11-02] MEDS: DOCUSATE SODIUM 100 MG CAPSULE PO SCH ×2 (09:44→20:35)
[2019-11-02] MEDS: VITAMIN E 400 UNIT CAPSULE PO SCH (09:44)
[2019-11-02] MEDS: ROSUVASTATIN 10 MG TABLET PO SCH (09:45)
[2019-11-02] MEDS: LACTOBACILLUS ACIDOPHILUS/BULGARICUS CAPLET PO SCH (09:45)
[2019-11-02] MEDS: ASCORBIC ACID 500 MG TABLET PO SCH ×2 (09:45→20:35)
[2019-11-02] MEDS: DILTIAZEM CD 120 MG CAPSULE PO SCH (09:46)
[2019-11-02] MEDS: GABAPENTIN 100 MG CAPSULE PO SCH ×2 (09:46→20:35)
[2019-11-02] MEDS: TAMSULOSIN 0.4 MG CAPSULE PO SCH (09:48)
[2019-11-02] MEDS: APIXABAN 5 MG TABLET PO SCH ×2 (09:48→20:35)
[2019-11-02] MEDS: FERROUS SULFATE 325 MG TABLET PO SCH (09:49)
[2019-11-02] MEDS: AMIODARONE 200 MG TABLET PO SCH (09:49)
[2019-11-02] MEDS: MULTIVITAMIN (CENTRUM) TABLET PO SCH (09:49)
[2019-11-02] MEDS: PANTOPRAZOLE 40 MG TABLET PO SCH (09:49)
[2019-11-02] MEDS: POLYETHYLENE GLYCOL POWDER 17 GM PACK PO SCH (09:50)
[2019-11-02] MEDS: ASPIRIN EC 81 MG TABLET PO SCH (09:50)
[2019-11-02] MEDS: INSULIN REGULAR 100 UNIT/ML SUBCUT SCH ×4 (09:56→20:35)
[2019-11-02] MEDS: CHLORHEXIDINE 0.12% ORAL RINSE 60 ML BOTTLE SWISH/SPIT SCH ×2 (09:57→20:36)
[2019-11-02 11:54] LABS: Apearance,Urine CLOUDY (Clear); Bilirubin,Urine Negative (Negative); Blood, Urine Small mg/dL (Negative); Glucose,Urine (UA) Negative (Negative); Ketones,Urine Negative (Negative); Mucus,Urine Occasional /LPF (Occasional); Nitrite,Urine Negative (Negative); Protein,Urine Negative; RBC,Urine 15 /HPF (0-4); Squamous Epithelial Cell,Urine Occasional /HPF (0-10); Urine Color Yellow (Yellow); Urine Specific Gravity 1.016 (1.001-1.035); Urine Urobilinogen < 2.0 EU/DL (0.2-1.0); WBC,Urine 4 /HPF (0-6)
[2019-11-02] MEDS: LEVOFLOXACIN INJ 500 MG in PREMIX 1 EACH IV SCH (16:55)
[2019-11-02] MEDS: metFORMIN 500 MG TABLET PO SCH (20:35)
[2019-11-03 06:09] LABS: Basophils % 0.1 % (0.0-0.8); Eosinophils % 0.1 % (0.00-10.9); Hematocrit 30.8 VOL% (42.0-52.0); Hemoglobin 9.8 GM/DL (14.0-18.0); Immature Granulocytes % 1.1 %; Immature Granulocytes Absolute 0.22 #; Lymphocytes # 1.6 10*3/uL (1.4-4.0); Lymphocytes % 7.9 % (21.2-54.2); Mean Corpuscular HGB Conc 31.8 GM/DL (32-36); Mean Corpuscular Volume 93.1 FL (87-102); Monocytes % 8.6 % (1.7-12.7); Neutrophils % 82.2 % (38.7-73.9); Platelet Count 184 T/CUMM (130-400); Red Blood Count 3.31 MC/CUMM (3.8-5.5); Red Cell Distribution Width 16.8 % (9.3-17.3); White Blood Count 20.4 T/CUMM (4-12)
[2019-11-03 06:46] LABS: Lymphocytes 10 % (20-55); Platelet Estimate Normal; Segmented Neutrophils 81 % (50-85); Total Cells Counted 100
[2019-11-03 06:47] LABS: Hypochromasia 1+; Ovalocytes Slight
[2019-11-03 06:48] LABS: Albumin 3.3 G/DL (3.4-5.0); Bilirubin,Direct 0.87 MG/DL (0.0-0.20); Bilirubin,Indirect 0.8 MG/DL (0.0-1.0); Bilirubin,Total 1.7 MG/DL (0.2-1.0); CKMB % 0.8 %; Calcium 7.8 MG/DL (8.5-10.1); Osmolality,Calculated 303.5 MOS/KG (273-304); Total Protein 5.6 G/DL (6.4-8.3)
[2019-11-03 06:50] LABS: Troponin I 3.28 NG/ML (0.00-0.045)
[2019-11-03] MEDS: DORNASE ALFA 2.5 MG/2.5 ML VIAL RESP TX SCH ×2 (07:39→19:07)
[2019-11-03] MEDS: INSULIN REGULAR 100 UNIT/ML SUBCUT SCH ×4 (09:52→21:49)
[2019-11-03] MEDS: POLYETHYLENE GLYCOL POWDER 17 GM PACK PO SCH (09:53)
[2019-11-03] MEDS: VITAMIN E 400 UNIT CAPSULE PO SCH (09:56)
[2019-11-03] MEDS: COENZYME Q10 100 MG CAPSULE PO SCH (09:56)
[2019-11-03] MEDS: ASPIRIN EC 81 MG TABLET PO SCH (09:56)
[2019-11-03] MEDS: TAMSULOSIN 0.4 MG CAPSULE PO SCH (09:56)
[2019-11-03] MEDS: ASCORBIC ACID 500 MG TABLET PO SCH ×2 (09:56→21:47)
[2019-11-03] MEDS: AMIODARONE 200 MG TABLET PO SCH (09:56)
[2019-11-03] MEDS: FERROUS SULFATE 325 MG TABLET PO SCH (09:56)
[2019-11-03] MEDS: DOCUSATE SODIUM 100 MG CAPSULE PO SCH ×2 (09:56→21:47)
[2019-11-03] MEDS: LACTOBACILLUS ACIDOPHILUS/BULGARICUS CAPLET PO SCH (09:56)
[2019-11-03] MEDS: APIXABAN 5 MG TABLET PO SCH ×2 (09:57→21:47)
[2019-11-03] MEDS: CHLORHEXIDINE 0.12% ORAL RINSE 60 ML BOTTLE SWISH/SPIT SCH ×2 (09:57→21:50)
[2019-11-03] MEDS: PANTOPRAZOLE 40 MG TABLET PO SCH (09:57)
[2019-11-03] MEDS: MULTIVITAMIN (CENTRUM) TABLET PO SCH (09:57)
[2019-11-03] MEDS: GABAPENTIN 100 MG CAPSULE PO SCH ×2 (09:57→21:47)
[2019-11-03] MEDS: DILTIAZEM CD 120 MG CAPSULE PO SCH (09:57)
[2019-11-03] MEDS: ROSUVASTATIN 10 MG TABLET PO SCH (09:57)
[2019-11-03] MEDS ORDERED: ZINC OXIDE PASTE 113 GM TUBE TOP PRN (13:29)
[2019-11-03] MEDS: LEVOFLOXACIN INJ 500 MG in PREMIX 1 EACH IV SCH (15:59)
[2019-11-04 05:48] LABS: Basophils % 0.1 % (0.0-0.8); Eosinophils # 0.1 10*3/uL (0.0-0.87); Eosinophils % 0.3 % (0.00-10.9); Hematocrit 29.2 VOL% (42.0-52.0); Hemoglobin 9.5 GM/DL (14.0-18.0); Immature Granulocytes % 0.7 %; Immature Granulocytes Absolute 0.15 #; Lymphocytes # 1.3 10*3/uL (1.4-4.0); Lymphocytes % 6.4 % (21.2-54.2); Mean Corpuscular HGB Conc 32.5 GM/DL (32-36); Mean Platelet Volume 11.2 FL (9.6-12.0); Monocytes % 9.1 % (1.7-12.7); Neutrophils % 83.4 % (38.7-73.9); Platelet Count 196 T/CUMM (130-400); Red Blood Count 3.21 MC/CUMM (3.8-5.5)
[2019-11-04 06:02] LABS: Calcium 8.1 MG/DL (8.5-10.1); Osmolality,Calculated 304.4 MOS/KG (273-304)
[2019-11-04 06:09] LABS: Hypochromasia Slight; Microcytosis 1+; Ovalocytes Slight; Platelet Estimate Adequate
[2019-11-04] MEDS: DORNASE ALFA 2.5 MG/2.5 ML VIAL RESP TX SCH ×2 (07:39→19:24)
[2019-11-04] MEDS: AMIODARONE 200 MG TABLET PO SCH (09:30)
[2019-11-04] MEDS: ASCORBIC ACID 500 MG TABLET PO SCH ×2 (09:30→22:20)
[2019-11-04] MEDS: COENZYME Q10 100 MG CAPSULE PO SCH (09:30)
[2019-11-04] MEDS: ROSUVASTATIN 10 MG TABLET PO SCH (09:30)
[2019-11-04] MEDS: TAMSULOSIN 0.4 MG CAPSULE PO SCH (09:30)
[2019-11-04] MEDS: MULTIVITAMIN (CENTRUM) TABLET PO SCH (09:30)
[2019-11-04] MEDS: PANTOPRAZOLE 40 MG TABLET PO SCH (09:30)
[2019-11-04] MEDS: LACTOBACILLUS ACIDOPHILUS/BULGARICUS CAPLET PO SCH (09:30)
[2019-11-04] MEDS: ASPIRIN EC 81 MG TABLET PO SCH (09:30)
[2019-11-04] MEDS: VITAMIN E 400 UNIT CAPSULE PO SCH (09:31)
[2019-11-04] MEDS: DILTIAZEM CD 120 MG CAPSULE PO SCH (09:31)
[2019-11-04] MEDS: APIXABAN 5 MG TABLET PO SCH ×2 (09:31→22:20)
[2019-11-04] MEDS: GABAPENTIN 100 MG CAPSULE PO SCH ×2 (09:31→22:20)
[2019-11-04] MEDS: DOCUSATE SODIUM 100 MG CAPSULE PO SCH ×2 (09:31→22:20)
[2019-11-04] MEDS: FERROUS SULFATE 325 MG TABLET PO SCH (09:31)
[2019-11-04] MEDS: INSULIN REGULAR 100 UNIT/ML SUBCUT SCH ×4 (09:31→22:19)
[2019-11-04] MEDS: CHLORHEXIDINE 0.12% ORAL RINSE 60 ML BOTTLE SWISH/SPIT SCH ×2 (09:32→22:20)
[2019-11-04] MEDS: POLYETHYLENE GLYCOL POWDER 17 GM PACK PO SCH (09:32)
[2019-11-04] MEDS ORDERED: SODIUM PHOSPHATE ENEMA 133 ML BOTTLE RECTAL PRN (13:19)
[2019-11-04] MEDS: LACTULOSE 20 GM/30 ML UDCUP PO SCH ×2 (18:16→22:28)
[2019-11-05] MEDS: LACTULOSE 20 GM/30 ML UDCUP PO SCH ×3 (02:17→09:09)
[2019-11-05 05:10] LABS: Basophils % 0.1 % (0.0-0.8); Eosinophils # 0.1 10*3/uL (0.0-0.87); Eosinophils % 0.6 % (0.00-10.9); Hematocrit 31.2 VOL% (42.0-52.0); Immature Granulocytes % 0.6 %; Immature Granulocytes Absolute 0.09 #; Lymphocytes # 1.1 10*3/uL (1.4-4.0); Mean Corpuscular HGB Conc 32.1 GM/DL (32-36); Mean Corpuscular Volume 91.5 FL (87-102); Mean Platelet Volume 11.5 FL (9.6-12.0); Monocytes % 10.3 % (1.7-12.7); Neutrophils % 81.4 % (38.7-73.9); Platelet Count 172 T/CUMM (130-400); Red Blood Count 3.41 MC/CUMM (3.8-5.5); Red Cell Distribution Width 16.4 % (9.3-17.3); White Blood Count 16.1 T/CUMM (4-12)
[2019-11-05 05:45] LABS: Alanine Aminotransferase 130 U/L (16-61); Albumin 3.5 G/DL (3.4-5.0); Alkaline Phosphatase 67 U/L (45-117); Aspartate Amino Transferase 63 U/L (0-37); Blood Urea Nitrogen 95 MG/DL (7-18); Calcium 8.3 MG/DL (8.5-10.1); Estimated Glom Filtration Rate 39 ML/MIN; Glucose 130 MG/DL (74-106); Osmolality,Calculated 300.1 MOS/KG (273-304); Total Protein 5.8 G/DL (6.4-8.3)
[2019-11-05] MEDS: DORNASE ALFA 2.5 MG/2.5 ML VIAL RESP TX SCH ×2 (07:10→21:01)
[2019-11-05] MEDS: COENZYME Q10 100 MG CAPSULE PO SCH (09:06)
[2019-11-05] MEDS: ROSUVASTATIN 10 MG TABLET PO SCH (09:06)
[2019-11-05] MEDS: VITAMIN E 400 UNIT CAPSULE PO SCH (09:06)
[2019-11-05] MEDS: ASPIRIN EC 81 MG TABLET PO SCH (09:06)
[2019-11-05] MEDS: PANTOPRAZOLE 40 MG TABLET PO SCH (09:07)
[2019-11-05] MEDS: DOCUSATE SODIUM 100 MG CAPSULE PO SCH ×2 (09:07→21:46)
[2019-11-05] MEDS: LACTOBACILLUS ACIDOPHILUS/BULGARICUS CAPLET PO SCH (09:07)
[2019-11-05] MEDS: MULTIVITAMIN (CENTRUM) TABLET PO SCH (09:07)
[2019-11-05] MEDS: TAMSULOSIN 0.4 MG CAPSULE PO SCH (09:08)
[2019-11-05] MEDS: ASCORBIC ACID 500 MG TABLET PO SCH ×2 (09:08→21:46)
[2019-11-05] MEDS: DILTIAZEM CD 120 MG CAPSULE PO SCH (09:08)
[2019-11-05] MEDS: APIXABAN 5 MG TABLET PO SCH ×2 (09:08→21:46)
[2019-11-05] MEDS: GABAPENTIN 100 MG CAPSULE PO SCH ×2 (09:08→21:46)
[2019-11-05] MEDS: AMIODARONE 200 MG TABLET PO SCH (09:08)
[2019-11-05] MEDS: INSULIN REGULAR 100 UNIT/ML SUBCUT SCH ×4 (09:09→21:45)
[2019-11-05] MEDS: FERROUS SULFATE 325 MG TABLET PO SCH (09:09)
[2019-11-05] MEDS: POLYETHYLENE GLYCOL POWDER 17 GM PACK PO SCH (09:09)
[2019-11-05] MEDS: CHLORHEXIDINE 0.12% ORAL RINSE 60 ML BOTTLE SWISH/SPIT SCH ×2 (09:10→21:48)
[2019-11-06] MEDS: DORNASE ALFA 2.5 MG/2.5 ML VIAL RESP TX SCH ×2 (07:20→19:03)
[2019-11-06 07:25] LABS: Basophils % 0.1 % (0.0-0.8); Eosinophils # 0.2 10*3/uL (0.0-0.87); Hemoglobin 9.6 GM/DL (14.0-18.0); Immature Granulocytes % 0.6 %; Immature Granulocytes Absolute 0.09 #; Lymphocytes # 1.1 10*3/uL (1.4-4.0); Lymphocytes % 7.3 % (21.2-54.2); Mean Platelet Volume 11.7 FL (9.6-12.0); Monocytes % 8.2 % (1.7-12.7); Neutrophils % 82.8 % (38.7-73.9); Platelet Count 184 T/CUMM (130-400); Red Blood Count 3.26 MC/CUMM (3.8-5.5); Red Cell Distribution Width 16.3 % (9.3-17.3); White Blood Count 15.3 T/CUMM (4-12)
[2019-11-06 07:40] LABS: Alanine Aminotransferase 114 U/L (16-61); Albumin 3.4 G/DL (3.4-5.0); Alkaline Phosphatase 73 U/L (45-117); Aspartate Amino Transferase 45 U/L (0-37); Bilirubin,Indirect 0.9 MG/DL (0.0-1.0); Blood Urea Nitrogen 88 MG/DL (7-18); Calcium 8.6 MG/DL (8.5-10.1); Estimated Glom Filtration Rate 41 ML/MIN; Glucose 150 MG/DL (74-106); Osmolality,Calculated 291.7 MOS/KG (273-304); Total Protein 6.3 G/DL (6.4-8.3)
[2019-11-06] MEDS: INSULIN REGULAR 100 UNIT/ML SUBCUT SCH ×4 (09:03→21:44)
[2019-11-06] MEDS: POLYETHYLENE GLYCOL POWDER 17 GM PACK PO SCH (09:30)
[2019-11-06] MEDS: APIXABAN 5 MG TABLET PO SCH ×2 (09:31→21:43)
[2019-11-06] MEDS: LACTOBACILLUS ACIDOPHILUS/BULGARICUS CAPLET PO SCH (09:31)
[2019-11-06] MEDS: MULTIVITAMIN (CENTRUM) TABLET PO SCH (09:31)
[2019-11-06] MEDS: ROSUVASTATIN 10 MG TABLET PO SCH (09:31)
[2019-11-06] MEDS: VITAMIN E 400 UNIT CAPSULE PO SCH (09:31)
[2019-11-06] MEDS: GABAPENTIN 100 MG CAPSULE PO SCH ×2 (09:31→21:44)
[2019-11-06] MEDS: AMIODARONE 200 MG TABLET PO SCH (09:31)
[2019-11-06] MEDS: DOCUSATE SODIUM 100 MG CAPSULE PO SCH ×2 (09:32→21:44)
[2019-11-06] MEDS: TAMSULOSIN 0.4 MG CAPSULE PO SCH (09:32)
[2019-11-06] MEDS: FERROUS SULFATE 325 MG TABLET PO SCH (09:32)
[2019-11-06] MEDS: ASPIRIN EC 81 MG TABLET PO SCH (09:32)
[2019-11-06] MEDS: CHLORHEXIDINE 0.12% ORAL RINSE 60 ML BOTTLE SWISH/SPIT SCH ×2 (09:32→21:44)
[2019-11-06] MEDS: PANTOPRAZOLE 40 MG TABLET PO SCH (09:32)
[2019-11-06] MEDS: COENZYME Q10 100 MG CAPSULE PO SCH (09:32)
[2019-11-06] MEDS: ASCORBIC ACID 500 MG TABLET PO SCH ×2 (09:32→21:43)
[2019-11-06] MEDS ORDERED: TUBERCULIN SKIN TEST 0.1 ML SYRINGE INTRADERM ONE (14:17)
[2019-11-07 05:43] LABS: Basophils % 0.1 % (0.0-0.8); Eosinophils # 0.3 10*3/uL (0.0-0.87); Eosinophils % 1.9 % (0.00-10.9); Hematocrit 28.1 VOL% (42.0-52.0); Hemoglobin 8.9 GM/DL (14.0-18.0); Immature Granulocytes % 0.6 %; Immature Granulocytes Absolute 0.08 #; Lymphocytes # 1.4 10*3/uL (1.4-4.0); Lymphocytes % 10.8 % (21.2-54.2); Mean Corpuscular HGB Conc 31.7 GM/DL (32-36); Mean Corpuscular Volume 91.8 FL (87-102); Mean Platelet Volume 11.7 FL (9.6-12.0); Monocytes % 11.1 % (1.7-12.7); Neutrophils % 75.5 % (38.7-73.9); Platelet Count 181 T/CUMM (130-400); Red Blood Count 3.06 MC/CUMM (3.8-5.5); White Blood Count 13.2 T/CUMM (4-12)
[2019-11-07 06:22] LABS: Calcium 8.3 MG/DL (8.5-10.1); Osmolality,Calculated 290.4 MOS/KG (273-304)
[2019-11-07] MEDS: DORNASE ALFA 2.5 MG/2.5 ML VIAL RESP TX SCH (07:42)
[2019-11-07] MEDS: INSULIN REGULAR 100 UNIT/ML SUBCUT SCH ×2 (07:46→11:56)
[2019-11-07] MEDS: POLYETHYLENE GLYCOL POWDER 17 GM PACK PO SCH (09:20)
[2019-11-07] MEDS: GABAPENTIN 100 MG CAPSULE PO SCH (09:21)
[2019-11-07] MEDS: COENZYME Q10 100 MG CAPSULE PO SCH (09:21)
[2019-11-07] MEDS: VITAMIN E 400 UNIT CAPSULE PO SCH (09:21)
[2019-11-07] MEDS: ROSUVASTATIN 10 MG TABLET PO SCH (09:22)
[2019-11-07] MEDS: TAMSULOSIN 0.4 MG CAPSULE PO SCH (09:22)
[2019-11-07] MEDS: LACTOBACILLUS ACIDOPHILUS/BULGARICUS CAPLET PO SCH (09:22)
[2019-11-07] MEDS: MULTIVITAMIN (CENTRUM) TABLET PO SCH (09:22)
[2019-11-07] MEDS: AMIODARONE 200 MG TABLET PO SCH (09:22)
[2019-11-07] MEDS: DOCUSATE SODIUM 100 MG CAPSULE PO SCH (09:22)
[2019-11-07] MEDS: ASCORBIC ACID 500 MG TABLET PO SCH (09:22)
[2019-11-07] MEDS: APIXABAN 5 MG TABLET PO SCH (09:22)
[2019-11-07] MEDS: PANTOPRAZOLE 40 MG TABLET PO SCH (09:22)
[2019-11-07] MEDS: CHLORHEXIDINE 0.12% ORAL RINSE 60 ML BOTTLE SWISH/SPIT SCH (09:22)
[2019-11-07] MEDS: ASPIRIN EC 81 MG TABLET PO SCH (09:22)
[2019-11-07] MEDS: FERROUS SULFATE 325 MG TABLET PO SCH (09:22)
[2019-11-07 12:46] VITALS: BP 109/67
== END 2019-11-07 13:50 | disposition swing bed (61) | DRG 233 ==
LOC: EDUNIT# → EDBD → N.ED 10:39 → INTOOBSV 12:28 → N.EDINP 12:28 → N.CVR 22:01 → N.ICU 10-25 06:54 → N.TELES 11-01 12:42
PROVIDERS: ADMIT Internal Medicine

== ENCOUNTER 2019-11-10 13:43 | Inpatient (IN) ==
[2019-11-10 14:59] LABS: Basophils % 0.2 % (0.0-0.8); Eosinophils # 0.2 10*3/uL (0.0-0.87); Eosinophils % 1.1 % (0.00-10.9); Hematocrit 31.5 VOL% (42.0-52.0); Hemoglobin 9.8 GM/DL (14.0-18.0); Immature Granulocytes % 0.4 %; Immature Granulocytes Absolute 0.07 #; Lymphocytes # 0.8 10*3/uL (1.4-4.0); Lymphocytes % 4.9 % (21.2-54.2); Mean Corpuscular HGB Conc 31.1 GM/DL (32-36); Mean Corpuscular Volume 94.9 FL (87-102); Mean Platelet Volume 11.3 FL (9.6-12.0); Neutrophils % 85.4 % (38.7-73.9); Platelet Count 249 T/CUMM (130-400); Red Blood Count 3.32 MC/CUMM (3.8-5.5); Red Cell Distribution Width 16.5 % (9.3-17.3); White Blood Count 15.6 T/CUMM (4-12)
[2019-11-10] MEDS ORDERED: FUROSEMIDE 100 MG/10 ML VIAL IV STA (15:07)
[2019-11-10 15:16] LABS: ABG Base Excess -3.6 MMOL/L (-2.5-2.5); ABG HCO3 21.3 MMOL/L (20-26); ABG PCO2 39.4 MM HG (35-48); ABG PH 7.349 (7.35-7.45); ABG PO2 65.9 MM HG (80-95); ABG TCO2 19.7 MMOL/L (23-27); Allen Test Positive; Pt O2 Delivery Device Other
[2019-11-10 15:28] LABS: Atypical Lymphocytes Few; Band Neutrophils 1 % (0-10); Lymphocytes 4 % (20-55); Segmented Neutrophils 89 % (50-85); Total Cells Counted 100
[2019-11-10 15:29] LABS: Reactive Lymphocytes Few
[2019-11-10 15:30] LABS: Platelet Estimate Adequate
[2019-11-10 15:37] LABS: Albumin 3.7 G/DL (3.4-5.0); Bilirubin,Total 1.7 MG/DL (0.2-1.0); Calcium 8.3 MG/DL (8.5-10.1); Total Protein 6.7 G/DL (6.4-8.3)
[2019-11-10] MEDS ORDERED: ONDANSETRON 4 MG/2 ML VIAL IV PRN (16:22)
[2019-11-10] MEDS ORDERED: ACETAMINOPHEN 325 MG TABLET PO PRN ×2 (16:22→16:56)
[2019-11-10] MEDS ORDERED: ZINC OXIDE PASTE 113 GM TUBE TOP PRN (16:56)
[2019-11-10] MEDS ORDERED: ALBUTEROL/IPRATROPIUM 3 ML NEB RESP TX PRN (16:56)
[2019-11-10] MEDS ORDERED: oxyCODONE/ACETAMINOPHEN 5-325 MG TABLET PO PRN (16:56)
[2019-11-10] MEDS: CLINDAMYCIN 300 MG CAPSULE PO SCH ×2 (18:46→21:40)
[2019-11-10] MEDS ORDERED: DOCUSATE SODIUM 100 MG CAPSULE PO SCH (21:00)
[2019-11-10] MEDS ORDERED: APIXABAN 5 MG TABLET PO SCH (21:00)
[2019-11-10] MEDS: SIMETHICONE CHEW 125 MG TABLET PO SCH (21:40)
[2019-11-10] MEDS: ROSUVASTATIN 10 MG TABLET PO SCH (21:40)
[2019-11-10] MEDS: GABAPENTIN 100 MG CAPSULE PO SCH (21:41)
[2019-11-10] MEDS: ASCORBIC ACID 500 MG TABLET PO SCH (21:41)
[2019-11-10] MEDS: DOCUSATE SODIUM 100 MG CAPSULE PO SCH (21:42)
[2019-11-10] MEDS: TAMSULOSIN 0.4 MG CAPSULE PO SCH (21:42)
[2019-11-11 05:24] LABS: Calcium 8.2 MG/DL (8.5-10.1); Osmolality,Calculated 291.7 MOS/KG (273-304)
[2019-11-11] MEDS ORDERED: PANTOPRAZOLE 40 MG TABLET PO SCH (09:00)
[2019-11-11] MEDS ORDERED: HYALURONIC ACID PO SCH (09:00)
[2019-11-11] MEDS ORDERED: COENZYME Q10 100 MG CAPSULE PO SCH (09:00)
[2019-11-11] MEDS ORDERED: ACIDOPHILUS PROBIOTIC PO SCH (09:00)
[2019-11-11] MEDS: ASPIRIN EC 81 MG TABLET PO SCH (10:03)
[2019-11-11] MEDS: SIMETHICONE CHEW 125 MG TABLET PO SCH ×2 (10:04→22:25)
[2019-11-11] MEDS: DOCUSATE SODIUM 100 MG CAPSULE PO SCH ×2 (10:04→22:25)
[2019-11-11] MEDS: CLINDAMYCIN 300 MG CAPSULE PO SCH ×4 (10:04→22:25)
[2019-11-11] MEDS: metOLazone 5 MG TABLET PO SCH (10:04)
[2019-11-11] MEDS: FERROUS SULFATE 325 MG TABLET PO SCH (10:04)
[2019-11-11] MEDS: AMIODARONE 200 MG TABLET PO SCH (10:05)
[2019-11-11] MEDS: POLYETHYLENE GLYCOL POWDER 17 GM PACK PO SCH (10:05)
[2019-11-11] MEDS: GABAPENTIN 100 MG CAPSULE PO SCH ×2 (10:05→22:24)
[2019-11-11] MEDS: ASCORBIC ACID 500 MG TABLET PO SCH ×2 (10:05→22:25)
[2019-11-11] MEDS: PANTOPRAZOLE 40 MG TABLET PO SCH (10:05)
[2019-11-11] MEDS: MULTIVITAMIN (CENTRUM) TABLET PO SCH (10:08)
[2019-11-11] MEDS: FUROSEMIDE 40 MG/4 ML VIAL IV SCH ×2 (10:11→16:15)
[2019-11-11] MEDS: SKIN HEALING OINT (AQUAPHOR) 50 GM TUBE TOP SCH (16:19)
[2019-11-11] MEDS: TAMSULOSIN 0.4 MG CAPSULE PO SCH (22:25)
[2019-11-11] MEDS: ZALEPLON 5 MG CAPSULE PO PRN (22:25)
[2019-11-11] MEDS: ROSUVASTATIN 10 MG TABLET PO SCH (22:25)
[2019-11-12] MEDS ORDERED: CLINDAMYCIN INJ 600 MG in PREMIX 1 EACH IV SCH (02:00)
[2019-11-12 05:03] LABS: Basophils % 0.2 % (0.0-0.8); Eosinophils # 0.6 10*3/uL (0.0-0.87); Eosinophils % 4.1 % (0.00-10.9); Hematocrit 28.4 VOL% (42.0-52.0); Immature Granulocytes % 0.4 %; Immature Granulocytes Absolute 0.05 #; Lymphocytes # 1.9 10*3/uL (1.4-4.0); Lymphocytes % 14.2 % (21.2-54.2); Mean Corpuscular HGB Conc 31.7 GM/DL (32-36); Mean Corpuscular Volume 93.7 FL (87-102); Monocytes % 6.1 % (1.7-12.7); Platelet Count 223 T/CUMM (130-400); Red Blood Count 3.03 MC/CUMM (3.8-5.5); Red Cell Distribution Width 16.6 % (9.3-17.3); White Blood Count 13.4 T/CUMM (4-12)
[2019-11-12 05:45] LABS: Calcium 8.3 MG/DL (8.5-10.1)
[2019-11-12] MEDS: CLINDAMYCIN INJ 600 MG in PREMIX 1 EACH IV SCH ×3 (06:04→21:33)
[2019-11-12] MEDS: GABAPENTIN 100 MG CAPSULE PO SCH ×2 (09:27→20:46)
[2019-11-12] MEDS: DOCUSATE SODIUM 100 MG CAPSULE PO SCH ×2 (09:27→20:46)
[2019-11-12] MEDS: FUROSEMIDE 40 MG/4 ML VIAL IV SCH ×2 (09:27→16:13)
[2019-11-12] MEDS: ASPIRIN EC 81 MG TABLET PO SCH (09:27)
[2019-11-12] MEDS: SIMETHICONE CHEW 125 MG TABLET PO SCH ×2 (09:27→20:45)
[2019-11-12] MEDS: metOLazone 5 MG TABLET PO SCH (09:28)
[2019-11-12] MEDS: FERROUS SULFATE 325 MG TABLET PO SCH (09:28)
[2019-11-12] MEDS: AMIODARONE 200 MG TABLET PO SCH (09:28)
[2019-11-12] MEDS: ASCORBIC ACID 500 MG TABLET PO SCH ×2 (09:28→20:45)
[2019-11-12] MEDS: POLYETHYLENE GLYCOL POWDER 17 GM PACK PO SCH (09:28)
[2019-11-12] MEDS: PANTOPRAZOLE 40 MG TABLET PO SCH (09:28)
[2019-11-12] MEDS: MULTIVITAMIN (CENTRUM) TABLET PO SCH (09:28)
[2019-11-12] MEDS: SKIN HEALING OINT (AQUAPHOR) 50 GM TUBE TOP SCH (09:29)
[2019-11-12] MEDS: TAMSULOSIN 0.4 MG CAPSULE PO SCH (20:46)
[2019-11-12] MEDS: ROSUVASTATIN 10 MG TABLET PO SCH (20:46)
[2019-11-12] MEDS ORDERED: GLUCAGON 1 MG VIAL IM PRN (22:29)
[2019-11-12] MEDS ORDERED: DEXTROSE 10% 250 ML BAG IV PRN (22:31)
[2019-11-13 04:45] LABS: Basophils % 0.3 % (0.0-0.8); Eosinophils # 0.8 10*3/uL (0.0-0.87); Eosinophils % 6.4 % (0.00-10.9); Hematocrit 27.9 VOL% (42.0-52.0); Immature Granulocytes % 0.6 %; Immature Granulocytes Absolute 0.07 #; Lymphocytes # 1.7 10*3/uL (1.4-4.0); Lymphocytes % 13.8 % (21.2-54.2); Mean Corpuscular HGB Conc 32.3 GM/DL (32-36); Mean Corpuscular Volume 92.7 FL (87-102); Mean Platelet Volume 10.6 FL (9.6-12.0); Monocytes % 6.5 % (1.7-12.7); Neutrophils % 72.4 % (38.7-73.9); Platelet Count 217 T/CUMM (130-400); Red Blood Count 3.01 MC/CUMM (3.8-5.5); Red Cell Distribution Width 16.6 % (9.3-17.3); White Blood Count 12.3 T/CUMM (4-12)
[2019-11-13 05:06] LABS: Calcium 8.3 MG/DL (8.5-10.1)
[2019-11-13] MEDS: CLINDAMYCIN INJ 600 MG in PREMIX 1 EACH IV SCH ×3 (05:43→22:14)
[2019-11-13] MEDS ORDERED: POTASSIUM CHLORIDE 20 MEQ TABLET PO ONE (07:32)
[2019-11-13] MEDS ORDERED: MAGNESIUM SULF RIDER 2 GM in PREMIX 1 EACH IV ONE (07:32)
[2019-11-13] MEDS: INSULIN REGULAR 100 UNIT/ML SUBCUT SCH ×4 (08:15→22:06)
[2019-11-13] MEDS: POLYETHYLENE GLYCOL POWDER 17 GM PACK PO SCH (08:47)
[2019-11-13] MEDS: AMIODARONE 200 MG TABLET PO SCH (08:47)
[2019-11-13] MEDS: GABAPENTIN 100 MG CAPSULE PO SCH ×2 (08:48→22:06)
[2019-11-13] MEDS: ASCORBIC ACID 500 MG TABLET PO SCH ×2 (08:48→22:05)
[2019-11-13] MEDS: PANTOPRAZOLE 40 MG TABLET PO SCH (08:48)
[2019-11-13] MEDS: SERTRALINE 25 MG TABLET PO SCH (08:48)
[2019-11-13] MEDS: MULTIVITAMIN (CENTRUM) TABLET PO SCH (08:49)
[2019-11-13] MEDS: SIMETHICONE CHEW 125 MG TABLET PO SCH ×2 (08:49→22:06)
[2019-11-13] MEDS: DOCUSATE SODIUM 100 MG CAPSULE PO SCH ×2 (08:50→22:05)
[2019-11-13] MEDS: metOLazone 5 MG TABLET PO SCH (08:50)
[2019-11-13] MEDS: FERROUS SULFATE 325 MG TABLET PO SCH (08:50)
[2019-11-13] MEDS: ASPIRIN EC 81 MG TABLET PO SCH (08:50)
[2019-11-13] MEDS: FUROSEMIDE 40 MG/4 ML VIAL IV SCH ×2 (08:50→16:01)
[2019-11-13] MEDS: SKIN HEALING OINT (AQUAPHOR) 50 GM TUBE TOP SCH (08:52)
[2019-11-13] MEDS: ROSUVASTATIN 10 MG TABLET PO SCH (22:05)
[2019-11-13] MEDS: TAMSULOSIN 0.4 MG CAPSULE PO SCH (22:06)
[2019-11-14 04:46] LABS: Basophils % 0.2 % (0.0-0.8); Eosinophils # 0.8 10*3/uL (0.0-0.87); Eosinophils % 6.9 % (0.00-10.9); Hematocrit 27.1 VOL% (42.0-52.0); Hemoglobin 8.4 GM/DL (14.0-18.0); Immature Granulocytes % 0.6 %; Immature Granulocytes Absolute 0.07 #; Lymphocytes # 1.2 10*3/uL (1.4-4.0); Lymphocytes % 10.8 % (21.2-54.2); Mean Corpuscular Volume 95.8 FL (87-102); Mean Platelet Volume 10.4 FL (9.6-12.0); Monocytes % 6.1 % (1.7-12.7); Neutrophils % 75.4 % (38.7-73.9); Platelet Count 221 T/CUMM (130-400); Red Blood Count 2.83 MC/CUMM (3.8-5.5); Red Cell Distribution Width 16.6 % (9.3-17.3)
[2019-11-14 05:16] LABS: Calcium 8.5 MG/DL (8.5-10.1)
[2019-11-14] MEDS: CLINDAMYCIN INJ 600 MG in PREMIX 1 EACH IV SCH ×3 (06:00→21:23)
[2019-11-14] MEDS: INSULIN REGULAR 100 UNIT/ML SUBCUT SCH ×4 (08:38→21:55)
[2019-11-14] MEDS ORDERED: POTASSIUM CHLORIDE 20 MEQ TABLET PO SCH (09:00)
[2019-11-14] MEDS: POLYETHYLENE GLYCOL POWDER 17 GM PACK PO SCH (09:57)
[2019-11-14] MEDS: AMIODARONE 200 MG TABLET PO SCH (09:58)
[2019-11-14] MEDS: SIMETHICONE CHEW 125 MG TABLET PO SCH ×2 (09:58→21:18)
[2019-11-14] MEDS: POTASSIUM CHLORIDE 20 MEQ TABLET PO PRN ×2 (09:58→13:18)
[2019-11-14] MEDS: metOLazone 5 MG TABLET PO SCH (09:58)
[2019-11-14] MEDS: POTASSIUM CHLORIDE 20 MEQ TABLET PO SCH ×3 (09:59→21:18)
[2019-11-14] MEDS: MULTIVITAMIN (CENTRUM) TABLET PO SCH (09:59)
[2019-11-14] MEDS: GABAPENTIN 100 MG CAPSULE PO SCH ×2 (09:59→21:19)
[2019-11-14] MEDS: SERTRALINE 25 MG TABLET PO SCH (09:59)
[2019-11-14] MEDS: FERROUS SULFATE 325 MG TABLET PO SCH (10:00)
[2019-11-14] MEDS: ASPIRIN EC 81 MG TABLET PO SCH (10:00)
[2019-11-14] MEDS: ASCORBIC ACID 500 MG TABLET PO SCH ×2 (10:01→21:18)
[2019-11-14] MEDS: PANTOPRAZOLE 40 MG TABLET PO SCH (10:01)
[2019-11-14] MEDS: FUROSEMIDE 40 MG/4 ML VIAL IV SCH ×2 (10:01→15:41)
[2019-11-14] MEDS: SKIN HEALING OINT (AQUAPHOR) 50 GM TUBE TOP SCH (10:01)
[2019-11-14] MEDS: DOCUSATE SODIUM 100 MG CAPSULE PO SCH ×2 (10:01→21:23)
[2019-11-14] MEDS: ZALEPLON 5 MG CAPSULE PO PRN (21:18)
[2019-11-14] MEDS: ROSUVASTATIN 10 MG TABLET PO SCH (21:18)
[2019-11-14] MEDS: TAMSULOSIN 0.4 MG CAPSULE PO SCH (21:19)
[2019-11-15 05:12] LABS: Calcium 8.8 MG/DL (8.5-10.1)
[2019-11-15] MEDS: CLINDAMYCIN INJ 600 MG in PREMIX 1 EACH IV SCH ×3 (05:32→21:56)
[2019-11-15] MEDS: FUROSEMIDE 40 MG/4 ML VIAL IV SCH ×2 (09:00→16:15)
[2019-11-15] MEDS: INSULIN REGULAR 100 UNIT/ML SUBCUT SCH ×4 (09:04→21:51)
[2019-11-15] MEDS: MULTIVITAMIN (CENTRUM) TABLET PO SCH (09:05)
[2019-11-15] MEDS: GABAPENTIN 100 MG CAPSULE PO SCH ×2 (09:05→21:40)
[2019-11-15] MEDS: POTASSIUM CHLORIDE 20 MEQ TABLET PO SCH ×3 (09:05→21:41)
[2019-11-15] MEDS: AMIODARONE 200 MG TABLET PO SCH (09:05)
[2019-11-15] MEDS: SIMETHICONE CHEW 125 MG TABLET PO SCH ×2 (09:06→21:40)
[2019-11-15] MEDS: metOLazone 5 MG TABLET PO SCH (09:06)
[2019-11-15] MEDS: SERTRALINE 25 MG TABLET PO SCH (09:06)
[2019-11-15] MEDS: FERROUS SULFATE 325 MG TABLET PO SCH (09:06)
[2019-11-15] MEDS: ASCORBIC ACID 500 MG TABLET PO SCH ×2 (09:06→21:49)
[2019-11-15] MEDS: ASPIRIN EC 81 MG TABLET PO SCH (09:06)
[2019-11-15] MEDS: DOCUSATE SODIUM 100 MG CAPSULE PO SCH ×2 (09:07→21:40)
[2019-11-15] MEDS: POLYETHYLENE GLYCOL POWDER 17 GM PACK PO SCH (09:07)
[2019-11-15] MEDS: SKIN HEALING OINT (AQUAPHOR) 50 GM TUBE TOP SCH (09:07)
[2019-11-15] MEDS: PANTOPRAZOLE 40 MG TABLET PO SCH (09:07)
[2019-11-15] MEDS: ZALEPLON 5 MG CAPSULE PO PRN (21:40)
[2019-11-15] MEDS: TAMSULOSIN 0.4 MG CAPSULE PO SCH (21:40)
[2019-11-15] MEDS: ROSUVASTATIN 10 MG TABLET PO SCH (21:40)
[2019-11-16 05:00] LABS: Basophils % 0.2 % (0.0-0.8); Eosinophils # 1.4 10*3/uL (0.0-0.87); Eosinophils % 10.2 % (0.00-10.9); Hematocrit 30.1 VOL% (42.0-52.0); Hemoglobin 9.4 GM/DL (14.0-18.0); Immature Granulocytes % 0.3 %; Immature Granulocytes Absolute 0.04 #; Lymphocytes # 1.2 10*3/uL (1.4-4.0); Lymphocytes % 8.5 % (21.2-54.2); Mean Corpuscular HGB Conc 31.2 GM/DL (32-36); Mean Corpuscular Volume 94.1 FL (87-102); Mean Platelet Volume 10.5 FL (9.6-12.0); Monocytes % 7.4 % (1.7-12.7); Neutrophils % 73.4 % (38.7-73.9); Platelet Count 218 T/CUMM (130-400); Red Cell Distribution Width 16.8 % (9.3-17.3); White Blood Count 13.7 T/CUMM (4-12)
[2019-11-16 05:32] LABS: Calcium 9.1 MG/DL (8.5-10.1); Osmolality,Calculated 285.8 MOS/KG (273-304)
[2019-11-16] MEDS: CLINDAMYCIN INJ 600 MG in PREMIX 1 EACH IV SCH ×3 (06:05→22:32)
[2019-11-16] MEDS: POTASSIUM CHLORIDE 20 MEQ TABLET PO SCH ×3 (11:03→21:49)
[2019-11-16] MEDS: GABAPENTIN 100 MG CAPSULE PO SCH ×2 (11:04→21:48)
[2019-11-16] MEDS: ASCORBIC ACID 500 MG TABLET PO SCH ×2 (11:04→21:48)
[2019-11-16] MEDS: SERTRALINE 25 MG TABLET PO SCH (11:04)
[2019-11-16] MEDS: DOCUSATE SODIUM 100 MG CAPSULE PO SCH ×2 (11:04→21:49)
[2019-11-16] MEDS: metOLazone 5 MG TABLET PO SCH (11:04)
[2019-11-16] MEDS: FERROUS SULFATE 325 MG TABLET PO SCH (11:04)
[2019-11-16] MEDS: ASPIRIN EC 81 MG TABLET PO SCH (11:05)
[2019-11-16] MEDS: PANTOPRAZOLE 40 MG TABLET PO SCH (11:05)
[2019-11-16] MEDS: SKIN HEALING OINT (AQUAPHOR) 50 GM TUBE TOP SCH (11:05)
[2019-11-16] MEDS: FUROSEMIDE 40 MG/4 ML VIAL IV SCH ×2 (11:05→15:30)
[2019-11-16] MEDS: SIMETHICONE CHEW 125 MG TABLET PO SCH ×2 (11:05→22:32)
[2019-11-16] MEDS: POLYETHYLENE GLYCOL POWDER 17 GM PACK PO SCH (11:05)
[2019-11-16] MEDS: AMIODARONE 200 MG TABLET PO SCH (11:05)
[2019-11-16] MEDS: MULTIVITAMIN (CENTRUM) TABLET PO SCH (11:05)
[2019-11-16] MEDS: INSULIN REGULAR 100 UNIT/ML SUBCUT SCH ×4 (11:05→21:49)
[2019-11-16] MEDS: TAMSULOSIN 0.4 MG CAPSULE PO SCH (21:49)
[2019-11-16] MEDS: ROSUVASTATIN 10 MG TABLET PO SCH (21:49)
[2019-11-17] MEDS: CLINDAMYCIN INJ 600 MG in PREMIX 1 EACH IV SCH ×3 (06:14→21:01)
[2019-11-17 06:40] LABS: Basophils % 0.3 % (0.0-0.8); Eosinophils # 1.5 10*3/uL (0.0-0.87); Eosinophils % 12.9 % (0.00-10.9); Hematocrit 29.5 VOL% (42.0-52.0); Immature Granulocytes % 0.4 %; Immature Granulocytes Absolute 0.05 #; Lymphocytes # 1.2 10*3/uL (1.4-4.0); Lymphocytes % 10.5 % (21.2-54.2); Mean Corpuscular HGB Conc 30.5 GM/DL (32-36); Mean Corpuscular Volume 96.1 FL (87-102); Mean Platelet Volume 10.8 FL (9.6-12.0); Monocytes % 7.6 % (1.7-12.7); Neutrophils % 68.3 % (38.7-73.9); Platelet Count 214 T/CUMM (130-400); Red Blood Count 3.07 MC/CUMM (3.8-5.5); Red Cell Distribution Width 16.7 % (9.3-17.3); White Blood Count 11.4 T/CUMM (4-12)
[2019-11-17 06:42] LABS: Calcium 8.9 MG/DL (8.5-10.1); Osmolality,Calculated 285.8 MOS/KG (273-304)
[2019-11-17 08:36] LABS: Band Neutrophils 2 % (0-10); Eosinophils 12 % (0-10); Lymphocytes 8 % (20-55); Platelet Estimate Normal; Segmented Neutrophils 68 % (50-85); Total Cells Counted 100
[2019-11-17 08:37] LABS: Hypochromasia 3+; Polychromasia 1+; Target Cells 1+
[2019-11-17] MEDS: ASCORBIC ACID 500 MG TABLET PO SCH ×2 (09:47→21:01)
[2019-11-17] MEDS: POTASSIUM CHLORIDE 20 MEQ TABLET PO PRN (09:47)
[2019-11-17] MEDS: MULTIVITAMIN (CENTRUM) TABLET PO SCH (09:47)
[2019-11-17] MEDS: ASPIRIN EC 81 MG TABLET PO SCH (09:47)
[2019-11-17] MEDS: SIMETHICONE CHEW 125 MG TABLET PO SCH ×2 (09:47→21:00)
[2019-11-17] MEDS: GABAPENTIN 100 MG CAPSULE PO SCH ×2 (09:48→20:58)
[2019-11-17] MEDS: AMIODARONE 200 MG TABLET PO SCH (09:48)
[2019-11-17] MEDS: SERTRALINE 25 MG TABLET PO SCH (09:48)
[2019-11-17] MEDS: DOCUSATE SODIUM 100 MG CAPSULE PO SCH ×2 (09:48→21:01)
[2019-11-17] MEDS: PANTOPRAZOLE 40 MG TABLET PO SCH (09:48)
[2019-11-17] MEDS: FERROUS SULFATE 325 MG TABLET PO SCH (09:48)
[2019-11-17] MEDS: metOLazone 5 MG TABLET PO SCH (09:50)
[2019-11-17] MEDS: FUROSEMIDE 40 MG/4 ML VIAL IV SCH (09:50)
[2019-11-17] MEDS: POLYETHYLENE GLYCOL POWDER 17 GM PACK PO SCH (09:50)
[2019-11-17] MEDS: INSULIN REGULAR 100 UNIT/ML SUBCUT SCH ×4 (09:51→20:57)
[2019-11-17] MEDS: SKIN HEALING OINT (AQUAPHOR) 50 GM TUBE TOP SCH (09:52)
[2019-11-17] MEDS: POTASSIUM CHLORIDE 20 MEQ TABLET PO SCH ×3 (10:01→21:01)
[2019-11-17] MEDS: ROSUVASTATIN 10 MG TABLET PO SCH (21:01)
[2019-11-17] MEDS: TAMSULOSIN 0.4 MG CAPSULE PO SCH (21:01)
[2019-11-18 05:49] LABS: Basophils % 0.3 % (0.0-0.8); Eosinophils # 1.7 10*3/uL (0.0-0.87); Eosinophils % 15.5 % (0.00-10.9); Hematocrit 27.4 VOL% (42.0-52.0); Hemoglobin 8.6 GM/DL (14.0-18.0); Immature Granulocytes % 0.3 %; Immature Granulocytes Absolute 0.03 #; Lymphocytes # 1.4 10*3/uL (1.4-4.0); Lymphocytes % 12.5 % (21.2-54.2); Mean Corpuscular HGB Conc 31.4 GM/DL (32-36); Mean Corpuscular Volume 93.8 FL (87-102); Mean Platelet Volume 10.4 FL (9.6-12.0); Monocytes % 7.5 % (1.7-12.7); Neutrophils % 63.9 % (38.7-73.9); Platelet Count 188 T/CUMM (130-400); Red Blood Count 2.92 MC/CUMM (3.8-5.5); Red Cell Distribution Width 16.8 % (9.3-17.3); White Blood Count 11.1 T/CUMM (4-12)
[2019-11-18 06:04] LABS: Calcium 8.8 MG/DL (8.5-10.1); Osmolality,Calculated 286.8 MOS/KG (273-304)
[2019-11-18 06:14] LABS: Eosinophils 15 % (0-10); Hypochromasia 1+; Lymphocytes 14 % (20-55); Ovalocytes Slight; Platelet Estimate Adequate; Segmented Neutrophils 61 % (50-85); Total Cells Counted 100
[2019-11-18] MEDS: CLINDAMYCIN INJ 600 MG in PREMIX 1 EACH IV SCH ×3 (06:36→22:55)
[2019-11-18] MEDS: INSULIN REGULAR 100 UNIT/ML SUBCUT SCH ×4 (08:52→22:54)
[2019-11-18] MEDS: PANTOPRAZOLE 40 MG TABLET PO SCH (08:54)
[2019-11-18] MEDS: MULTIVITAMIN (CENTRUM) TABLET PO SCH (08:54)
[2019-11-18] MEDS: AMIODARONE 200 MG TABLET PO SCH (08:54)
[2019-11-18] MEDS: FERROUS SULFATE 325 MG TABLET PO SCH (08:54)
[2019-11-18] MEDS: POTASSIUM CHLORIDE 20 MEQ TABLET PO SCH ×3 (08:54→22:54)
[2019-11-18] MEDS: GABAPENTIN 100 MG CAPSULE PO SCH ×2 (08:54→22:54)
[2019-11-18] MEDS: SERTRALINE 25 MG TABLET PO SCH ×2 (08:54→08:59)
[2019-11-18] MEDS: ASCORBIC ACID 500 MG TABLET PO SCH ×2 (08:54→22:54)
[2019-11-18] MEDS: ASPIRIN EC 81 MG TABLET PO SCH (08:55)
[2019-11-18] MEDS: SKIN HEALING OINT (AQUAPHOR) 50 GM TUBE TOP SCH (08:55)
[2019-11-18] MEDS: SPIRONOLACTONE 25 MG TABLET PO SCH (08:55)
[2019-11-18] MEDS: DOCUSATE SODIUM 100 MG CAPSULE PO SCH ×2 (08:55→22:55)
[2019-11-18] MEDS: SIMETHICONE CHEW 125 MG TABLET PO SCH ×2 (08:55→22:54)
[2019-11-18] MEDS: POLYETHYLENE GLYCOL POWDER 17 GM PACK PO SCH (08:57)
[2019-11-18] MEDS ORDERED: FUROSEMIDE 40 MG TABLET PO SCH (09:00)
[2019-11-18] MEDS: TAMSULOSIN 0.4 MG CAPSULE PO SCH (22:54)
[2019-11-18] MEDS: ROSUVASTATIN 10 MG TABLET PO SCH (22:55)
[2019-11-19 05:30] LABS: Calcium 8.8 MG/DL (8.5-10.1)
[2019-11-19 05:34] LABS: Basophils # 0.1 10*3/uL (0.0-0.2); Basophils % 0.5 % (0.0-0.8); Eosinophils # 1.8 10*3/uL (0.0-0.87); Eosinophils % 16.3 % (0.00-10.9); Hematocrit 30.2 VOL% (42.0-52.0); Immature Granulocytes % 0.5 %; Immature Granulocytes Absolute 0.05 #; Lymphocytes # 1.6 10*3/uL (1.4-4.0); Lymphocytes % 14.4 % (21.2-54.2); Mean Corpuscular HGB Conc 29.8 GM/DL (32-36); Mean Corpuscular Volume 96.8 FL (87-102); Mean Platelet Volume 10.6 FL (9.6-12.0); Monocytes % 8.5 % (1.7-12.7); Neutrophils % 59.8 % (38.7-73.9); Platelet Count 199 T/CUMM (130-400); Red Blood Count 3.12 MC/CUMM (3.8-5.5); Red Cell Distribution Width 16.7 % (9.3-17.3); White Blood Count 10.9 T/CUMM (4-12)
[2019-11-19 06:01] LABS: Eosinophils 18 % (0-10); Hypochromasia 2+; Lymphocytes 13 % (20-55); Ovalocytes Slight; Platelet Estimate Adequate; Segmented Neutrophils 61 % (50-85); Total Cells Counted 100
[2019-11-19] MEDS: CLINDAMYCIN INJ 600 MG in PREMIX 1 EACH IV SCH ×2 (06:04→14:38)
[2019-11-19] MEDS: INSULIN REGULAR 100 UNIT/ML SUBCUT SCH ×4 (08:36→22:57)
[2019-11-19] MEDS: POTASSIUM CHLORIDE 20 MEQ TABLET PO SCH ×3 (09:39→22:57)
[2019-11-19] MEDS: POLYETHYLENE GLYCOL POWDER 17 GM PACK PO SCH (09:39)
[2019-11-19] MEDS: FERROUS SULFATE 325 MG TABLET PO SCH (09:39)
[2019-11-19] MEDS: SIMETHICONE CHEW 125 MG TABLET PO SCH ×2 (09:39→22:57)
[2019-11-19] MEDS: AMIODARONE 200 MG TABLET PO SCH (09:39)
[2019-11-19] MEDS: ASPIRIN EC 81 MG TABLET PO SCH (09:40)
[2019-11-19] MEDS: PANTOPRAZOLE 40 MG TABLET PO SCH (09:40)
[2019-11-19] MEDS: MULTIVITAMIN (CENTRUM) TABLET PO SCH (09:40)
[2019-11-19] MEDS: GABAPENTIN 100 MG CAPSULE PO SCH ×2 (09:40→22:57)
[2019-11-19] MEDS: ASCORBIC ACID 500 MG TABLET PO SCH ×2 (09:40→22:58)
[2019-11-19] MEDS: DOCUSATE SODIUM 100 MG CAPSULE PO SCH ×2 (09:41→22:58)
[2019-11-19] MEDS: SERTRALINE 25 MG TABLET PO SCH (09:41)
[2019-11-19] MEDS: SPIRONOLACTONE 25 MG TABLET PO SCH (09:41)
[2019-11-19] MEDS: SKIN HEALING OINT (AQUAPHOR) 50 GM TUBE TOP SCH (09:55)
[2019-11-19] MEDS: FUROSEMIDE 40 MG/4 ML VIAL IV SCH (17:38)
[2019-11-19] MEDS: ROSUVASTATIN 10 MG TABLET PO SCH (22:58)
[2019-11-19] MEDS: TAMSULOSIN 0.4 MG CAPSULE PO SCH (22:58)
[2019-11-20 05:22] LABS: Basophils # 0.1 10*3/uL (0.0-0.2); Basophils % 0.6 % (0.0-0.8); Eosinophils # 1.8 10*3/uL (0.0-0.87); Eosinophils % 17.1 % (0.00-10.9); Hematocrit 27.5 VOL% (42.0-52.0); Hemoglobin 8.5 GM/DL (14.0-18.0); Immature Granulocytes % 0.4 %; Immature Granulocytes Absolute 0.04 #; Lymphocytes # 1.8 10*3/uL (1.4-4.0); Lymphocytes % 17.1 % (21.2-54.2); Mean Corpuscular HGB Conc 30.9 GM/DL (32-36); Mean Corpuscular Volume 93.5 FL (87-102); Mean Platelet Volume 10.9 FL (9.6-12.0); Monocytes % 8.8 % (1.7-12.7); Platelet Count 198 T/CUMM (130-400); Red Blood Count 2.94 MC/CUMM (3.8-5.5); Red Cell Distribution Width 16.5 % (9.3-17.3); White Blood Count 10.5 T/CUMM (4-12)
[2019-11-20 05:36] LABS: Calcium 8.4 MG/DL (8.5-10.1); Osmolality,Calculated 285.5 MOS/KG (273-304)
[2019-11-20 06:31] LABS: Eosinophils 17 % (0-10); Hypochromasia 1+; Lymphocytes 16 % (20-55); Nucleated Red Blood Cells 1 (0-5); Ovalocytes Slight; Platelet Estimate Adequate; Segmented Neutrophils 62 % (50-85); Total Cells Counted 100
[2019-11-20] MEDS: ASCORBIC ACID 500 MG TABLET PO SCH ×2 (09:22→22:06)
[2019-11-20] MEDS: GABAPENTIN 100 MG CAPSULE PO SCH ×2 (09:22→22:23)
[2019-11-20] MEDS: PANTOPRAZOLE 40 MG TABLET PO SCH (09:22)
[2019-11-20] MEDS: ASPIRIN EC 81 MG TABLET PO SCH (09:24)
[2019-11-20] MEDS: SIMETHICONE CHEW 125 MG TABLET PO SCH ×2 (09:24→22:06)
[2019-11-20] MEDS: DOCUSATE SODIUM 100 MG CAPSULE PO SCH ×2 (09:24→22:06)
[2019-11-20] MEDS: AMIODARONE 200 MG TABLET PO SCH (09:24)
[2019-11-20] MEDS: MULTIVITAMIN (CENTRUM) TABLET PO SCH (09:24)
[2019-11-20] MEDS: POTASSIUM CHLORIDE 20 MEQ TABLET PO SCH ×3 (09:24→22:07)
[2019-11-20] MEDS: SPIRONOLACTONE 25 MG TABLET PO SCH (09:25)
[2019-11-20] MEDS: POLYETHYLENE GLYCOL POWDER 17 GM PACK PO SCH (09:25)
[2019-11-20] MEDS: FERROUS SULFATE 325 MG TABLET PO SCH (09:25)
[2019-11-20] MEDS: INSULIN REGULAR 100 UNIT/ML SUBCUT SCH ×4 (09:34→22:07)
[2019-11-20] MEDS: SKIN HEALING OINT (AQUAPHOR) 50 GM TUBE TOP SCH (09:35)
[2019-11-20] MEDS: FUROSEMIDE 40 MG/4 ML VIAL IV SCH ×2 (10:08→17:07)
[2019-11-20] MEDS: ROSUVASTATIN 10 MG TABLET PO SCH (22:06)
[2019-11-20] MEDS: TAMSULOSIN 0.4 MG CAPSULE PO SCH (22:06)
[2019-11-21 04:54] LABS: Basophils # 0.1 10*3/uL (0.0-0.2); Basophils % 0.6 % (0.0-0.8); Eosinophils # 1.8 10*3/uL (0.0-0.87); Eosinophils % 17.3 % (0.00-10.9); Hematocrit 28.1 VOL% (42.0-52.0); Hemoglobin 8.8 GM/DL (14.0-18.0); Immature Granulocytes % 0.3 %; Immature Granulocytes Absolute 0.03 #; Lymphocytes # 1.8 10*3/uL (1.4-4.0); Lymphocytes % 17.1 % (21.2-54.2); Mean Corpuscular HGB Conc 31.3 GM/DL (32-36); Mean Platelet Volume 10.7 FL (9.6-12.0); Monocytes % 8.9 % (1.7-12.7); Neutrophils % 55.8 % (38.7-73.9); Platelet Count 213 T/CUMM (130-400); Red Blood Count 2.99 MC/CUMM (3.8-5.5); Red Cell Distribution Width 16.8 % (9.3-17.3); White Blood Count 10.5 T/CUMM (4-12)
[2019-11-21 05:19] LABS: Calcium 8.6 MG/DL (8.5-10.1); Osmolality,Calculated 282.7 MOS/KG (273-304)
[2019-11-21 05:23] LABS: Eosinophils 12 % (0-10); Hypochromasia 1+; Lymphocytes 16 % (20-55); Platelet Estimate Adequate; Segmented Neutrophils 69 % (50-85); Total Cells Counted 100
[2019-11-21] MEDS: INSULIN REGULAR 100 UNIT/ML SUBCUT SCH ×4 (08:41→21:24)
[2019-11-21] MEDS: FUROSEMIDE 40 MG/4 ML VIAL IV SCH ×2 (10:31→18:32)
[2019-11-21] MEDS: ASCORBIC ACID 500 MG TABLET PO SCH ×2 (10:32→21:21)
[2019-11-21] MEDS: POTASSIUM CHLORIDE 20 MEQ TABLET PO SCH ×3 (10:32→21:21)
[2019-11-21] MEDS: MULTIVITAMIN (CENTRUM) TABLET PO SCH (10:32)
[2019-11-21] MEDS: PANTOPRAZOLE 40 MG TABLET PO SCH (10:32)
[2019-11-21] MEDS: FERROUS SULFATE 325 MG TABLET PO SCH (10:32)
[2019-11-21] MEDS: ASPIRIN EC 81 MG TABLET PO SCH (10:32)
[2019-11-21] MEDS: SIMETHICONE CHEW 125 MG TABLET PO SCH ×2 (10:32→21:20)
[2019-11-21] MEDS: GABAPENTIN 100 MG CAPSULE PO SCH ×2 (10:33→21:20)
[2019-11-21] MEDS: SPIRONOLACTONE 25 MG TABLET PO SCH (10:33)
[2019-11-21] MEDS: AMIODARONE 200 MG TABLET PO SCH (10:33)
[2019-11-21] MEDS: DOCUSATE SODIUM 100 MG CAPSULE PO SCH ×2 (10:33→21:20)
[2019-11-21] MEDS: SKIN HEALING OINT (AQUAPHOR) 50 GM TUBE TOP SCH (10:34)
[2019-11-21] MEDS: POLYETHYLENE GLYCOL POWDER 17 GM PACK PO SCH (10:34)
[2019-11-21] MEDS: ROSUVASTATIN 10 MG TABLET PO SCH (21:20)
[2019-11-21] MEDS: TAMSULOSIN 0.4 MG CAPSULE PO SCH (21:21)
[2019-11-21] MEDS ORDERED: FUROSEMIDE 40 MG/4 ML VIAL IV ONE (21:31)
[2019-11-21] MEDS ORDERED: SODIUM CHLORIDE 0.9% 1,000 ML IV PRN (21:33)
[2019-11-22 08:15] LABS: Basophils # 0.1 10*3/uL (0.0-0.2); Basophils % 0.8 % (0.0-0.8); Eosinophils # 1.8 10*3/uL (0.0-0.87); Eosinophils % 16.8 % (0.00-10.9); Hematocrit 34.5 VOL% (42.0-52.0); Hemoglobin 10.5 GM/DL (14.0-18.0); Immature Granulocytes % 0.4 %; Immature Granulocytes Absolute 0.04 #; Lymphocytes # 1.6 10*3/uL (1.4-4.0); Lymphocytes % 14.6 % (21.2-54.2); Mean Corpuscular HGB Conc 30.4 GM/DL (32-36); Mean Corpuscular Volume 94.8 FL (87-102); Mean Platelet Volume 10.3 FL (9.6-12.0); Monocytes % 9.4 % (1.7-12.7); Platelet Count 241 T/CUMM (130-400); Red Blood Count 3.64 MC/CUMM (3.8-5.5); Red Cell Distribution Width 17.2 % (9.3-17.3); White Blood Count 10.8 T/CUMM (4-12)
[2019-11-22 08:39] LABS: Albumin 3.2 G/DL (3.4-5.0); Bilirubin,Total 1.2 MG/DL (0.2-1.0); Osmolality,Calculated 282.8 MOS/KG (273-304); Total Protein 6.7 G/DL (6.4-8.3)
[2019-11-22 08:52] LABS: Band Neutrophils 1 % (0-10); Eosinophils 15 % (0-10); Lymphocytes 14 % (20-55); Platelet Estimate Normal; Segmented Neutrophils 65 % (50-85); Total Cells Counted 100
[2019-11-22 08:53] LABS: Anisocytosis 1+; Macrocytosis 1+
[2019-11-22] MEDS: DOCUSATE SODIUM 100 MG CAPSULE PO SCH ×2 (10:35→20:58)
[2019-11-22] MEDS: PANTOPRAZOLE 40 MG TABLET PO SCH (10:35)
[2019-11-22] MEDS: ASCORBIC ACID 500 MG TABLET PO SCH ×2 (10:35→20:57)
[2019-11-22] MEDS: GABAPENTIN 100 MG CAPSULE PO SCH ×2 (10:35→20:57)
[2019-11-22] MEDS: SIMETHICONE CHEW 125 MG TABLET PO SCH ×2 (10:36→20:56)
[2019-11-22] MEDS: MULTIVITAMIN (CENTRUM) TABLET PO SCH (10:36)
[2019-11-22] MEDS: SPIRONOLACTONE 25 MG TABLET PO SCH (10:36)
[2019-11-22] MEDS: FERROUS SULFATE 325 MG TABLET PO SCH ×2 (10:36→20:57)
[2019-11-22] MEDS: ASPIRIN EC 81 MG TABLET PO SCH (10:36)
[2019-11-22] MEDS: AMIODARONE 200 MG TABLET PO SCH ×2 (10:36→20:56)
[2019-11-22] MEDS: INSULIN REGULAR 100 UNIT/ML SUBCUT SCH ×4 (10:37→23:58)
[2019-11-22] MEDS: POLYETHYLENE GLYCOL POWDER 17 GM PACK PO SCH (10:37)
[2019-11-22] MEDS: SKIN HEALING OINT (AQUAPHOR) 50 GM TUBE TOP SCH (10:37)
[2019-11-22] MEDS ORDERED: MIDAZOLAM 10 MG/2 ML VIAL ONE (13:25)
[2019-11-22] MEDS ORDERED: flumazeniL 0.5 MG/5 ML VIAL IV ONE (13:25)
[2019-11-22] MEDS: FUROSEMIDE 40 MG/4 ML VIAL IV SCH ×2 (15:26→15:30)
[2019-11-22] MEDS: POTASSIUM CHLORIDE 20 MEQ TABLET PO SCH ×3 (15:29→20:57)
[2019-11-22] MEDS: TAMSULOSIN 0.4 MG CAPSULE PO SCH (20:57)
[2019-11-22] MEDS: ROSUVASTATIN 10 MG TABLET PO SCH (20:57)
[2019-11-23 06:15] LABS: Basophils # 0.1 10*3/uL (0.0-0.2); Basophils % 0.8 % (0.0-0.8); Eosinophils # 1.7 10*3/uL (0.0-0.87); Eosinophils % 15.5 % (0.00-10.9); Hematocrit 38.3 VOL% (42.0-52.0); Hemoglobin 11.6 GM/DL (14.0-18.0); Immature Granulocytes % 0.5 %; Immature Granulocytes Absolute 0.06 #; Lymphocytes # 2.1 10*3/uL (1.4-4.0); Lymphocytes % 18.4 % (21.2-54.2); Mean Corpuscular HGB Conc 30.3 GM/DL (32-36); Mean Corpuscular Volume 95.3 FL (87-102); Mean Platelet Volume 10.6 FL (9.6-12.0); Neutrophils % 55.8 % (38.7-73.9); Platelet Count 266 T/CUMM (130-400); Red Blood Count 4.02 MC/CUMM (3.8-5.5); Red Cell Distribution Width 17.1 % (9.3-17.3); White Blood Count 11.3 T/CUMM (4-12)
[2019-11-23 06:36] LABS: Calcium 8.9 MG/DL (8.5-10.1); Osmolality,Calculated 286.5 MOS/KG (273-304)
[2019-11-23 06:54] LABS: Band Neutrophils 3 % (0-10); Eosinophils 13 % (0-10); Lymphocytes 11 % (20-55); Segmented Neutrophils 72 % (50-85); Total Cells Counted 100
[2019-11-23 06:55] LABS: Anisocytosis 1+; Ovalocytes 1+; Platelet Estimate Normal
[2019-11-23] MEDS: INSULIN REGULAR 100 UNIT/ML SUBCUT SCH ×4 (08:05→22:43)
[2019-11-23] MEDS: DOCUSATE SODIUM 100 MG CAPSULE PO SCH ×2 (08:54→22:38)
[2019-11-23] MEDS: GABAPENTIN 100 MG CAPSULE PO SCH ×2 (08:54→22:37)
[2019-11-23] MEDS: POTASSIUM CHLORIDE 20 MEQ TABLET PO SCH ×3 (08:54→22:39)
[2019-11-23] MEDS: POLYETHYLENE GLYCOL POWDER 17 GM PACK PO SCH (08:54)
[2019-11-23] MEDS: SPIRONOLACTONE 25 MG TABLET PO SCH (08:54)
[2019-11-23] MEDS: SIMETHICONE CHEW 125 MG TABLET PO SCH ×2 (08:54→22:38)
[2019-11-23] MEDS: AMIODARONE 200 MG TABLET PO SCH ×2 (08:54→22:37)
[2019-11-23] MEDS: ASCORBIC ACID 500 MG TABLET PO SCH ×2 (08:54→22:38)
[2019-11-23] MEDS: MULTIVITAMIN (CENTRUM) TABLET PO SCH (08:54)
[2019-11-23] MEDS: ASPIRIN EC 81 MG TABLET PO SCH (08:55)
[2019-11-23] MEDS: PANTOPRAZOLE 40 MG TABLET PO SCH (08:55)
[2019-11-23] MEDS: FUROSEMIDE 40 MG/4 ML VIAL IV SCH ×2 (08:55→17:43)
[2019-11-23] MEDS: FERROUS SULFATE 325 MG TABLET PO SCH ×2 (08:55→22:43)
[2019-11-23] MEDS: SKIN HEALING OINT (AQUAPHOR) 50 GM TUBE TOP SCH (08:55)
[2019-11-23] MEDS: ROSUVASTATIN 10 MG TABLET PO SCH (22:38)
[2019-11-23] MEDS: TAMSULOSIN 0.4 MG CAPSULE PO SCH (22:38)
[2019-11-24 05:29] LABS: Basophils # 0.1 10*3/uL (0.0-0.2); Eosinophils # 1.8 10*3/uL (0.0-0.87); Eosinophils % 17.5 % (0.00-10.9); Hematocrit 34.5 VOL% (42.0-52.0); Hemoglobin 10.9 GM/DL (14.0-18.0); Immature Granulocytes % 0.4 %; Immature Granulocytes Absolute 0.04 #; Lymphocytes # 1.9 10*3/uL (1.4-4.0); Lymphocytes % 17.8 % (21.2-54.2); Mean Corpuscular HGB Conc 31.6 GM/DL (32-36); Mean Corpuscular Volume 92.5 FL (87-102); Monocytes % 9.1 % (1.7-12.7); Neutrophils % 54.2 % (38.7-73.9); Platelet Count 257 T/CUMM (130-400); Red Blood Count 3.73 MC/CUMM (3.8-5.5); Red Cell Distribution Width 16.3 % (9.3-17.3); White Blood Count 10.5 T/CUMM (4-12)
[2019-11-24 05:58] LABS: Calcium 8.5 MG/DL (8.5-10.1); Osmolality,Calculated 282.7 MOS/KG (273-304)
[2019-11-24 06:12] LABS: Band Neutrophils 2 % (0-10); Eosinophils 21 % (0-10); Lymphocytes 14 % (20-55); Segmented Neutrophils 58 % (50-85); Total Cells Counted 100
[2019-11-24 06:13] LABS: Anisocytosis 1+; Ovalocytes 1+; Platelet Estimate Normal; Target Cells Few
[2019-11-24] MEDS: INSULIN REGULAR 100 UNIT/ML SUBCUT SCH ×4 (08:17→21:53)
[2019-11-24] MEDS: FERROUS SULFATE 325 MG TABLET PO SCH ×2 (09:07→21:52)
[2019-11-24] MEDS: DOCUSATE SODIUM 100 MG CAPSULE PO SCH ×2 (09:08→21:52)
[2019-11-24] MEDS: ASPIRIN EC 81 MG TABLET PO SCH (09:08)
[2019-11-24] MEDS: SIMETHICONE CHEW 125 MG TABLET PO SCH ×2 (09:08→21:52)
[2019-11-24] MEDS: AMIODARONE 200 MG TABLET PO SCH ×2 (09:08→21:52)
[2019-11-24] MEDS: POTASSIUM CHLORIDE 20 MEQ TABLET PO SCH ×2 (09:08→21:52)
[2019-11-24] MEDS: GABAPENTIN 100 MG CAPSULE PO SCH ×2 (09:08→21:51)
[2019-11-24] MEDS: SPIRONOLACTONE 25 MG TABLET PO SCH (09:08)
[2019-11-24] MEDS: ASCORBIC ACID 500 MG TABLET PO SCH ×2 (09:08→21:52)
[2019-11-24] MEDS: MULTIVITAMIN (CENTRUM) TABLET PO SCH (09:08)
[2019-11-24] MEDS: PANTOPRAZOLE 40 MG TABLET PO SCH (09:09)
[2019-11-24] MEDS: SKIN HEALING OINT (AQUAPHOR) 50 GM TUBE TOP SCH (09:09)
[2019-11-24] MEDS: FUROSEMIDE 40 MG/4 ML VIAL IV SCH ×2 (09:09→16:21)
[2019-11-24] MEDS: POLYETHYLENE GLYCOL POWDER 17 GM PACK PO SCH (09:09)
[2019-11-24] MEDS ORDERED: DIPH/TET/ACEL PERT BOOSTER VACCINE 0.5 ML VIAL IM ONE (19:07)
[2019-11-24] MEDS: TAMSULOSIN 0.4 MG CAPSULE PO SCH (21:51)
[2019-11-24] MEDS: ROSUVASTATIN 10 MG TABLET PO SCH (21:52)
[2019-11-25 05:53] LABS: Calcium 8.8 MG/DL (8.5-10.1); Osmolality,Calculated 281.8 MOS/KG (273-304)
[2019-11-25] MEDS: INSULIN REGULAR 100 UNIT/ML SUBCUT SCH ×3 (08:23→15:58)
[2019-11-25] MEDS: FERROUS SULFATE 325 MG TABLET PO SCH (09:46)
[2019-11-25] MEDS: POLYETHYLENE GLYCOL POWDER 17 GM PACK PO SCH (09:46)
[2019-11-25] MEDS: FUROSEMIDE 40 MG/4 ML VIAL IV SCH ×2 (09:46→15:58)
[2019-11-25] MEDS: DOCUSATE SODIUM 100 MG CAPSULE PO SCH (09:46)
[2019-11-25] MEDS: SPIRONOLACTONE 25 MG TABLET PO SCH (09:46)
[2019-11-25] MEDS: AMIODARONE 200 MG TABLET PO SCH (09:48)
[2019-11-25] MEDS: PANTOPRAZOLE 40 MG TABLET PO SCH (09:48)
[2019-11-25] MEDS: ASPIRIN EC 81 MG TABLET PO SCH (09:48)
[2019-11-25] MEDS: MULTIVITAMIN (CENTRUM) TABLET PO SCH (09:48)
[2019-11-25] MEDS: GABAPENTIN 100 MG CAPSULE PO SCH (09:53)
[2019-11-25] MEDS: ASCORBIC ACID 500 MG TABLET PO SCH (09:54)
[2019-11-25] MEDS: POTASSIUM CHLORIDE 20 MEQ TABLET PO SCH (09:57)
[2019-11-25] MEDS: SKIN HEALING OINT (AQUAPHOR) 50 GM TUBE TOP SCH (09:57)
[2019-11-25] MEDS: SIMETHICONE CHEW 125 MG TABLET PO SCH (09:57)
[2019-11-25 12:23] VITALS: BP 98/66
== END 2019-11-25 16:23 | disposition swing bed (61) | DRG 291 ==
LOC: EDUNIT# → EDBD → N.ED 13:43 → N.EDINP 16:22 → N.TELEN 17:38
PROVIDERS: ADMIT Internal Medicine; ATTEND Internal Medicine

== ENCOUNTER 2021-02-22 12:45 | Inpatient (IN) ==
[2021-02-22] MEDS ORDERED: KETOROLAC 30 MG/1 ML VIAL IV STA (13:05)
[2021-02-22] MEDS ORDERED: SODIUM CHLORIDE 0.9% 500 ML IV STA (13:05)
[2021-02-22] MEDS ORDERED: ONDANSETRON 4 MG/2 ML VIAL IV STA (13:05)
[2021-02-22 13:54] LABS: Basophils % 0.1 % (0.0-0.8); Eosinophils # 0.1 10*3/uL (0.0-0.87); Eosinophils % 0.4 % (0.00-10.9); Hematocrit 39.6 VOL% (42.0-52.0); Hemoglobin 13.2 GM/DL (14.0-18.0); Immature Granulocytes % 0.7 %; Lymphocytes # 0.6 10*3/uL (1.4-4.0); Lymphocytes % 3.7 % (21.2-54.2); Mean Corpuscular HGB Conc 33.3 GM/DL (32-36); Mean Corpuscular Volume 84.4 FL (87-102); Mean Platelet Volume 10.2 FL (9.6-12.0); Monocytes % 9.1 % (1.7-12.7); NRBC # 0.02 10*3/uL; Platelet Count 187 T/CUMM (130-400); Red Blood Count 4.69 MC/CUMM (3.8-5.5); White Blood Count 14.7 T/CUMM (4-12)
[2021-02-22 14:21] LABS: Albumin 2.9 G/DL (3.4-5.0); Bilirubin,Total 1.4 MG/DL (0.2-1.0); Osmolality,Calculated 269.6 MOS/KG (273-304); Potassium 5.1 MMOL/L (3.5-5.1); Total Protein 6.8 G/DL (6.4-8.2)
[2021-02-22] MEDS ORDERED: ACETAMINOPHEN 325 MG TABLET PO PRN (14:35)
[2021-02-22] MEDS ORDERED: ONDANSETRON 4 MG/2 ML VIAL IV PRN (14:35)
[2021-02-22] MEDS ORDERED: ALBUTEROL/IPRATROPIUM 3 ML NEB RESP TX PRN (14:37)
[2021-02-22] MEDS ORDERED: TAMSULOSIN 0.4 MG CAPSULE PO PRN (14:37)
[2021-02-22 15:41] LABS: Lymphocytes 7 % (20-55); Segmented Neutrophils 85 % (50-85); Total Cells Counted 100
[2021-02-22 15:42] LABS: Acanthocytes Few; Burr Cells Few; Hypochromasia Slight; Ovalocytes Few; Platelet Estimate Normal
[2021-02-22 15:43] LABS: Polychromasia Slight
[2021-02-22] MEDS: CLINDAMYCIN INJ 600 MG/50 ML PREMIX IV SCH ×2 (16:10→22:45)
[2021-02-22 17:05] LABS: Bilirubin,Urine Negative (Negative); Blood, Urine Large mg/dL (Negative); Glucose,Urine (UA) Negative (Negative); Hyaline Casts,Urine 6 /LPF (0-3); Ketones,Urine Negative (Negative); Nitrite,Urine Negative (Negative); Protein,Urine 30 MG/DL; RBC,Urine 304 /HPF (0-4); Urine Appearance CLEAR (Clear); Urine Color Yellow (Yellow); Urine Specific Gravity 1.012 (1.001-1.035)
[2021-02-22] MEDS: SODIUM CHLORIDE 0.9% 1,000 ML IV SCH (17:45)
[2021-02-22] MEDS ORDERED: NITROGLYCERIN SL 0.4 MG TABLET SL PRN (17:45)
[2021-02-22] MEDS: cefTRIAXone 1,000 MG in SODIUM CHLORIDE 0.9% 100 ML IV SCH (17:45)
[2021-02-22] MEDS: DOCUSATE SODIUM 100 MG CAPSULE PO SCH (21:18)
[2021-02-22] MEDS: TRIAMCINOLONE 0.1% CREAM 15 GM TUBE TOP SCH (21:18)
[2021-02-22] MEDS: MEGESTROL 400 MG/10 ML UDCUP PO SCH ×2 (21:18→21:21)
[2021-02-22] MEDS: POTASSIUM CHLORIDE 20 MEQ TABLET PO SCH (21:19)
[2021-02-22] MEDS: busPIRone 5 MG TABLET PO SCH (21:19)
[2021-02-22] MEDS: SIMVASTATIN 10 MG TABLET PO SCH (21:20)
[2021-02-22] MEDS ORDERED: SODIUM CHLORIDE 0.9% 250 ML IV ONE (23:49)
[2021-02-23] MEDS: SODIUM CHLORIDE 0.9% 1,000 ML IV SCH ×3 (00:56→16:16)
[2021-02-23] MEDS: DEXTROMETHORPHAN ER 6 MG/ML 90 ML/BOTTLE PO PRN ×2 (05:28→17:17)
[2021-02-23] MEDS: CLINDAMYCIN INJ 600 MG/50 ML PREMIX IV SCH ×3 (06:12→22:17)
[2021-02-23] MEDS: PANTOPRAZOLE 40 MG TABLET PO SCH (08:00)
[2021-02-23] MEDS: buPROPion XL 150 MG TABLET PO SCH (08:00)
[2021-02-23] MEDS: busPIRone 5 MG TABLET PO SCH ×2 (08:00→22:19)
[2021-02-23] MEDS: AMIODARONE 200 MG TABLET PO SCH (08:00)
[2021-02-23] MEDS: POLYETHYLENE GLYCOL POWDER 17 GM PACK PO SCH (08:01)
[2021-02-23] MEDS: MULTIVITAMIN (CENTRUM) TABLET PO SCH (08:01)
[2021-02-23] MEDS: DOCUSATE SODIUM 100 MG CAPSULE PO SCH ×2 (08:01→22:19)
[2021-02-23] MEDS: TRIAMCINOLONE 0.1% CREAM 15 GM TUBE TOP SCH ×2 (08:01→22:19)
[2021-02-23] MEDS: MEGESTROL 400 MG/10 ML UDCUP PO SCH ×3 (08:01→22:19)
[2021-02-23] MEDS: POTASSIUM CHLORIDE 20 MEQ TABLET PO SCH (08:02)
[2021-02-23] MEDS ORDERED: COENZYME Q10 100 MG CAPSULE PO SCH (09:00)
[2021-02-23 12:42] LABS: Basophils % 0.1 % (0.0-0.8); Eosinophils # 0.2 10*3/uL (0.0-0.87); Eosinophils % 1.4 % (0.00-10.9); Hematocrit 38.2 VOL% (42.0-52.0); Hemoglobin 12.7 GM/DL (14.0-18.0); Immature Granulocytes % 0.8 %; Immature Granulocytes Absolute 0.11 #; Lymphocytes # 0.6 10*3/uL (1.4-4.0); Lymphocytes % 4.5 % (21.2-54.2); Mean Corpuscular HGB Conc 33.2 GM/DL (32-36); Mean Corpuscular Volume 84.5 FL (87-102); Mean Platelet Volume 9.9 FL (9.6-12.0); Monocytes % 9.5 % (1.7-12.7); Neutrophils % 83.7 % (38.7-73.9); Platelet Count 162 T/CUMM (130-400); Red Blood Count 4.52 MC/CUMM (3.8-5.5); Red Cell Distribution Width 22.2 % (9.3-17.3); White Blood Count 13.2 T/CUMM (4-12)
[2021-02-23 13:00] LABS: Albumin 2.5 G/DL (3.4-5.0); Bilirubin,Total 1.3 MG/DL (0.2-1.0); Calcium 8.2 MG/DL (8.5-10.1); Osmolality,Calculated 275.4 MOS/KG (273-304); Potassium 5.1 MMOL/L (3.5-5.1); Total Protein 6.1 G/DL (6.4-8.2)
[2021-02-23 13:07] LABS: Eosinophils 1 % (0-10); Hypochromasia Slight; Lymphocytes 7 % (20-55); Platelet Estimate Adequate; Segmented Neutrophils 84 % (50-85); Total Cells Counted 100
[2021-02-23 13:08] LABS: Elliptocytes Few; Polychromasia Slight; Target Cells Slight
[2021-02-23 13:09] LABS: Acanthocytes Few
[2021-02-23] MEDS: ALBUMIN 25% 25 GM/100 ML VIAL IV SCH ×2 (15:16→22:18)
[2021-02-23] MEDS: FUROSEMIDE 40 MG/4 ML VIAL IV SCH (17:17)
[2021-02-23] MEDS: cefTRIAXone 1,000 MG in SODIUM CHLORIDE 0.9% 100 ML IV SCH (17:17)
[2021-02-23 19:36] LABS: ABG Base Excess -7.7 MMOL/L (-2.5-2.5); ABG HCO3 23.2 MMOL/L (20-26); ABG Oxygen Saturation 94.6 % (95-100); ABG PO2 96.5 MM HG (80-95); ABG TCO2 25.5 MMOL/L (23-27)
[2021-02-23 19:37] LABS: ABG PH 7.108 (7.35-7.45)
[2021-02-23 19:41] LABS: Calcium 8.2 MG/DL (8.5-10.1); Osmolality,Calculated 274.5 MOS/KG (273-304); Potassium 5.5 MMOL/L (3.5-5.1)
[2021-02-23] MEDS ORDERED: DOBUTamine 500 MG/250 ML PREMIX IV ONE (19:48)
[2021-02-23] MEDS: DOBUTamine 500 MG/250 ML PREMIX IV PRN (20:03)
[2021-02-23] MEDS: ALBUTEROL/IPRATROPIUM 3 ML NEB RESP TX SCH ×2 (20:16→23:15)
[2021-02-23] MEDS ORDERED: FUROSEMIDE 40 MG/4 ML VIAL IV ONE (20:53)
[2021-02-23] MEDS ORDERED: NOREPINEPHRINE 8 MG in SODIUM CHLORIDE 0.9% 242 ML IV PRN (21:32)
[2021-02-23] MEDS: SIMVASTATIN 10 MG TABLET PO SCH (22:19)
[2021-02-23] MEDS: methylPREDNISolone SOD SUC 40 MG/1 ML VIAL IV SCH (22:19)
[2021-02-24] MEDS: SODIUM CHLORIDE 0.9% 500 ML IV SCH (00:04)
[2021-02-24 01:15] LABS: Bilirubin,Urine Negative (Negative); Blood, Urine Large mg/dL (Negative); Glucose,Urine (UA) Negative (Negative); Hyaline Casts,Urine 12 /LPF (0-3); Ketones,Urine Negative (Negative); Mucus,Urine Occasional /LPF (Occasional); Nitrite,Urine Negative (Negative); Protein,Urine Negative; RBC,Urine 263 /HPF (0-4); Squamous Epithelial Cell,Urine Occasional /HPF (0-10); Urine Appearance CLOUDY (Clear); Urine Color Yellow (Yellow); Urine Specific Gravity 1.009 (1.001-1.035); Urine Urobilinogen < 2.0 EU/DL (0.2-1.0)
[2021-02-24] MEDS: ALBUTEROL/IPRATROPIUM 3 ML NEB RESP TX SCH ×5 (02:50→19:24)
[2021-02-24 04:16] LABS: Basophils % 0.1 % (0.0-0.8); Eosinophils % 0.1 % (0.00-10.9); Hematocrit 37.5 VOL% (42.0-52.0); Hemoglobin 12.2 GM/DL (14.0-18.0); Immature Granulocytes % 0.7 %; Lymphocytes # 0.2 10*3/uL (1.4-4.0); Lymphocytes % 1.3 % (21.2-54.2); Mean Corpuscular HGB Conc 32.5 GM/DL (32-36); Mean Corpuscular Volume 86.4 FL (87-102); Mean Platelet Volume 9.9 FL (9.6-12.0); Monocytes % 4.9 % (1.7-12.7); NRBC # 0.02 10*3/uL; Neutrophils % 92.9 % (38.7-73.9); Platelet Count 167 T/CUMM (130-400); Red Blood Count 4.34 MC/CUMM (3.8-5.5); Red Cell Distribution Width 21.6 % (9.3-17.3); White Blood Count 15.4 T/CUMM (4-12)
[2021-02-24 04:32] LABS: Allen Test Positive; Pt O2 Delivery Device Other
[2021-02-24 04:34] LABS: ABG Base Excess -4.4 MMOL/L (-2.5-2.5); ABG HCO3 18.6 MMOL/L (20-26); ABG Oxygen Saturation 97.9 % (95-100); ABG PCO2 28.5 MM HG (35-48); ABG PH 7.432 (7.35-7.45); ABG PO2 101.7 MM HG (80-95); ABG TCO2 19.5 MMOL/L (23-27)
[2021-02-24 04:43] LABS: Calcium 8.5 MG/DL (8.5-10.1); Osmolality,Calculated 275.4 MOS/KG (273-304); Potassium 4.9 MMOL/L (3.5-5.1); Total Protein 6.2 G/DL (6.4-8.2)
[2021-02-24 04:50] LABS: Lymphocytes 1 % (20-55); Platelet Estimate Normal; Segmented Neutrophils 95 % (50-85); Total Cells Counted 100
[2021-02-24] MEDS: ALBUMIN 25% 25 GM/100 ML VIAL IV SCH ×3 (05:00→21:39)
[2021-02-24] MEDS: methylPREDNISolone SOD SUC 40 MG/1 ML VIAL IV SCH ×3 (05:32→21:40)
[2021-02-24] MEDS: DOBUTamine 500 MG/250 ML PREMIX IV PRN ×2 (05:33→17:31)
[2021-02-24 06:05] LABS: INR 1.5; PT Patient Result 16.1 SECS (10.5-12.0)
[2021-02-24 06:07] LABS: Partial Thromboplastin Time 42.6 SECS (23.9-33.8)
[2021-02-24] MEDS: CLINDAMYCIN INJ 600 MG/50 ML PREMIX IV SCH ×3 (06:24→22:55)
[2021-02-24] MEDS: HALOPERIDOL 5 MG/ML AMP IM PRN (08:08)
[2021-02-24] MEDS: PANTOPRAZOLE 40 MG TABLET PO SCH ×2 (09:13→15:34)
[2021-02-24] MEDS: POLYETHYLENE GLYCOL POWDER 17 GM PACK PO SCH ×3 (09:13→15:35)
[2021-02-24] MEDS: DOCUSATE SODIUM 100 MG CAPSULE PO SCH ×4 (09:13→21:40)
[2021-02-24] MEDS: POTASSIUM CHLORIDE 20 MEQ TABLET PO SCH ×3 (09:13→15:35)
[2021-02-24] MEDS: buPROPion XL 150 MG TABLET PO SCH ×3 (09:13→15:34)
[2021-02-24] MEDS: MULTIVITAMIN (CENTRUM) TABLET PO SCH ×3 (09:13→15:34)
[2021-02-24] MEDS: AMIODARONE 200 MG TABLET PO SCH ×2 (09:13→15:35)
[2021-02-24] MEDS: MEGESTROL 400 MG/10 ML UDCUP PO SCH ×4 (09:13→21:40)
[2021-02-24] MEDS: busPIRone 5 MG TABLET PO SCH ×4 (09:13→21:40)
[2021-02-24] MEDS: FUROSEMIDE 40 MG/4 ML VIAL IV SCH (09:19)
[2021-02-24] MEDS ORDERED: DEXTROSE 50% 25 GM/50 ML VIAL IV PRN (09:24)
[2021-02-24] MEDS ORDERED: GLUCAGON 1 MG VIAL IM PRN (09:24)
[2021-02-24] MEDS ORDERED: INSULIN LISPRO 100 UNIT/ML SUBCUT SCH (11:30)
[2021-02-24 11:51] LABS: ABG Base Excess -4.7 MMOL/L (-2.5-2.5); ABG Oxygen Saturation 64.1 % (95-100); ABG PCO2 57.1 MM HG (35-48); ABG PH 7.231 (7.35-7.45); ABG PO2 42.3 MM HG (80-95); ABG TCO2 21.8 MMOL/L (23-27)
[2021-02-24 13:14] LABS: ABG Base Excess -5.4 MMOL/L (-2.5-2.5); ABG HCO3 19.9 MMOL/L (20-26); ABG Oxygen Saturation 93.2 % (95-100); ABG PCO2 49.6 MM HG (35-48); ABG PH 7.258 (7.35-7.45); ABG PO2 77.8 MM HG (80-95); ABG TCO2 19.9 MMOL/L (23-27); Allen Test Positive; Pt O2 Delivery Device BIPAP
[2021-02-24] MEDS ORDERED: ETOMIDATE 20 MG/10 ML VIAL IV ONE ×2 (13:35→13:45)
[2021-02-24] MEDS ORDERED: ROCURONIUM 100 MG/10 ML VIAL IV ONE ×2 (13:37→13:45)
[2021-02-24] MEDS ORDERED: FAT EMULSION 20% 250 ML IV SCH (14:00)
[2021-02-24 14:38] LABS: ABG Base Excess -3.4 MMOL/L (-2.5-2.5); ABG HCO3 21.6 MMOL/L (20-26); ABG PCO2 35.1 MM HG (35-48); ABG PH 7.385 (7.35-7.45); ABG TCO2 18.6 MMOL/L (23-27)
[2021-02-24] MEDS: MIDAZOLAM 100 MG in SODIUM CHLORIDE 0.9% 80 ML IV PRN (14:44)
[2021-02-24] MEDS: TOLVAPTAN 15 MG TABLET PO SCH (15:34)
[2021-02-24 16:50] LABS: Calcium 8.8 MG/DL (8.5-10.1); Osmolality,Calculated 277.2 MOS/KG (273-304); Potassium 5.2 MMOL/L (3.5-5.1)
[2021-02-24] MEDS ORDERED: MULTIVITAMIN INJ 10 ML in AMINO ACIDS/DEXT/LYTES 4.25-5% 2,000 ML IV SCH (17:00)
[2021-02-24] MEDS: TRIAMCINOLONE 0.1% CREAM 15 GM TUBE TOP SCH (17:32)
[2021-02-24] MEDS: INSULIN LISPRO 100 UNIT/ML SUBCUT SCH (18:03)
[2021-02-24] MEDS: cefTRIAXone 1,000 MG in SODIUM CHLORIDE 0.9% 100 ML IV SCH (19:09)
[2021-02-24] MEDS ORDERED: FUROSEMIDE 40 MG/4 ML VIAL IV SCH (21:00)
[2021-02-24] MEDS: SIMVASTATIN 10 MG TABLET PO SCH (21:40)
[2021-02-25] MEDS: INSULIN LISPRO 100 UNIT/ML SUBCUT SCH ×4 (00:20→17:59)
[2021-02-25] MEDS: ALBUTEROL/IPRATROPIUM 3 ML NEB RESP TX SCH ×6 (00:46→19:41)
[2021-02-25] MEDS: TRIAMCINOLONE 0.1% CREAM 15 GM TUBE TOP SCH ×3 (01:50→21:21)
[2021-02-25] MEDS: DOBUTamine 500 MG/250 ML PREMIX IV PRN ×2 (02:30→14:11)
[2021-02-25 03:40] LABS: ABG Base Excess -0.6 MMOL/L (-2.5-2.5); ABG HCO3 23.9 MMOL/L (20-26); ABG PCO2 36.4 MM HG (35-48); ABG PH 7.418 (7.35-7.45)
[2021-02-25 03:54] LABS: Basophils % 0.1 % (0.0-0.8); Hematocrit 34.4 VOL% (42.0-52.0); Hemoglobin 11.5 GM/DL (14.0-18.0); Immature Granulocytes % 0.7 %; Immature Granulocytes Absolute 0.09 #; Lymphocytes # 0.3 10*3/uL (1.4-4.0); Mean Corpuscular HGB Conc 33.4 GM/DL (32-36); Mean Corpuscular Volume 84.3 FL (87-102); Mean Platelet Volume 9.7 FL (9.6-12.0); Monocytes % 4.8 % (1.7-12.7); Neutrophils % 92.4 % (38.7-73.9); Platelet Count 151 T/CUMM (130-400); Red Blood Count 4.08 MC/CUMM (3.8-5.5); Red Cell Distribution Width 21.6 % (9.3-17.3); White Blood Count 12.7 T/CUMM (4-12)
[2021-02-25] MEDS: ALBUMIN 25% 25 GM/100 ML VIAL IV SCH ×3 (04:02→21:20)
[2021-02-25 04:14] LABS: Albumin 3.5 G/DL (3.4-5.0); Bilirubin,Total 1.9 MG/DL (0.2-1.0); Calcium 8.7 MG/DL (8.5-10.1); Osmolality,Calculated 282.1 MOS/KG (273-304); Potassium 4.5 MMOL/L (3.5-5.1); Total Protein 6.2 G/DL (6.4-8.2)
[2021-02-25 04:26] LABS: Anisocytosis 1+; Hypochromasia 1+; Lymphocytes 2 % (20-55); Microcytosis 1+; Nucleated Red Blood Cells 1 (0-5); Segmented Neutrophils 95 % (50-85); Total Cells Counted 100
[2021-02-25 04:27] LABS: Acanthocytes Few; Ovalocytes Slight; Platelet Estimate Adequate
[2021-02-25] MEDS: CLINDAMYCIN INJ 600 MG/50 ML PREMIX IV SCH ×3 (06:00→22:15)
[2021-02-25] MEDS: methylPREDNISolone SOD SUC 40 MG/1 ML VIAL IV SCH ×3 (06:22→21:16)
[2021-02-25] MEDS: PANTOPRAZOLE 40 MG TABLET PO SCH (08:28)
[2021-02-25] MEDS: TOLVAPTAN 15 MG TABLET PO SCH (08:28)
[2021-02-25] MEDS: POTASSIUM CHLORIDE 20 MEQ TABLET PO SCH (08:28)
[2021-02-25] MEDS: DOCUSATE SODIUM 100 MG CAPSULE PO SCH (08:28)
[2021-02-25] MEDS: busPIRone 5 MG TABLET PO SCH ×2 (08:28→21:14)
[2021-02-25] MEDS: MULTIVITAMIN (CENTRUM) TABLET PO SCH (08:29)
[2021-02-25] MEDS: AMIODARONE 200 MG TABLET PO SCH (08:29)
[2021-02-25] MEDS: MEGESTROL 400 MG/10 ML UDCUP PO SCH ×2 (08:29→21:15)
[2021-02-25] MEDS: buPROPion XL 150 MG TABLET PO SCH (08:29)
[2021-02-25] MEDS: POLYETHYLENE GLYCOL POWDER 17 GM PACK PO SCH (08:29)
[2021-02-25] MEDS: FUROSEMIDE 40 MG/4 ML VIAL IV SCH ×2 (08:31→21:17)
[2021-02-25] MEDS ORDERED: AMINO ACIDS/DEXT/LYTES 4.25-5% 2,000 ML IV SCH (17:00)
[2021-02-25] MEDS: cefTRIAXone 1,000 MG in SODIUM CHLORIDE 0.9% 100 ML IV SCH (18:00)
[2021-02-25] MEDS: SIMVASTATIN 10 MG TABLET PO SCH (21:14)
[2021-02-25] MEDS: DOCUSATE SODIUM 100 MG/10 ML UDCUP PER TUBE SCH (21:15)
[2021-02-25] MEDS: buPROPion 75 MG TABLET PO SCH (21:22)
[2021-02-26] MEDS: INSULIN LISPRO 100 UNIT/ML SUBCUT SCH ×4 (00:13→18:14)
[2021-02-26] MEDS: DOBUTamine 500 MG/250 ML PREMIX IV PRN ×3 (00:15→21:17)
[2021-02-26] MEDS: ALBUTEROL/IPRATROPIUM 3 ML NEB RESP TX SCH ×7 (00:46→23:29)
[2021-02-26 04:24] LABS: ABG Base Excess 0.3 MMOL/L (-2.5-2.5); ABG HCO3 24.8 MMOL/L (20-26); ABG Oxygen Saturation 99.9 % (95-100); ABG PCO2 32.5 MM HG (35-48); ABG PH 7.466 (7.35-7.45); ABG TCO2 20.8 MMOL/L (23-27)
[2021-02-26] MEDS: ALBUMIN 25% 25 GM/100 ML VIAL IV SCH ×3 (05:00→21:13)
[2021-02-26 05:54] LABS: Basophils % 0.1 % (0.0-0.8); Hematocrit 33.4 VOL% (42.0-52.0); Hemoglobin 11.2 GM/DL (14.0-18.0); Immature Granulocytes % 0.7 %; Immature Granulocytes Absolute 0.09 #; Lymphocytes # 0.1 10*3/uL (1.4-4.0); Lymphocytes % 1.1 % (21.2-54.2); Mean Corpuscular HGB Conc 33.5 GM/DL (32-36); Mean Corpuscular Volume 84.1 FL (87-102); Mean Platelet Volume 10.3 FL (9.6-12.0); Monocytes % 6.2 % (1.7-12.7); Neutrophils % 91.9 % (38.7-73.9); Platelet Count 158 T/CUMM (130-400); Red Blood Count 3.97 MC/CUMM (3.8-5.5); Red Cell Distribution Width 21.8 % (9.3-17.3); White Blood Count 12.5 T/CUMM (4-12)
[2021-02-26] MEDS: MIDAZOLAM 100 MG in SODIUM CHLORIDE 0.9% 80 ML IV PRN (06:11)
[2021-02-26] MEDS: methylPREDNISolone SOD SUC 40 MG/1 ML VIAL IV SCH ×3 (06:11→21:36)
[2021-02-26] MEDS: CLINDAMYCIN INJ 600 MG/50 ML PREMIX IV SCH ×2 (06:12→14:38)
[2021-02-26 06:20] LABS: Hypochromasia 1+; Lymphocytes 2 % (20-55); Microcytosis 1+; Nucleated Red Blood Cells 1 (0-5); Ovalocytes Few; Segmented Neutrophils 93 % (50-85); Total Cells Counted 100
[2021-02-26 06:21] LABS: Acanthocytes Few; Platelet Estimate Adequate; Target Cells Slight
[2021-02-26 06:25] LABS: Osmolality,Calculated 293.5 MOS/KG (273-304); Potassium 4.3 MMOL/L (3.5-5.1)
[2021-02-26] MEDS: PANTOPRAZOLE 40 MG TABLET PO SCH (09:01)
[2021-02-26] MEDS: busPIRone 5 MG TABLET PO SCH ×2 (09:01→21:15)
[2021-02-26] MEDS: AMIODARONE 200 MG TABLET PO SCH (09:01)
[2021-02-26] MEDS: DOCUSATE SODIUM 100 MG/10 ML UDCUP PER TUBE SCH ×2 (09:01→21:14)
[2021-02-26] MEDS: TOLVAPTAN 15 MG TABLET PO SCH (09:02)
[2021-02-26] MEDS: buPROPion 75 MG TABLET PO SCH ×2 (09:02→21:15)
[2021-02-26] MEDS: MULTIVITAMIN LIQUID (CENTRUM) 60 ML BOTTLE PER TUBE SCH (09:03)
[2021-02-26] MEDS: MEGESTROL 400 MG/10 ML UDCUP PO SCH ×2 (09:03→21:14)
[2021-02-26] MEDS: POTASSIUM CHLORIDE 20 MEQ/15 ML UDCUP PER TUBE SCH (09:03)
[2021-02-26] MEDS: POLYETHYLENE GLYCOL POWDER 17 GM PACK PO SCH (09:04)
[2021-02-26] MEDS: TRIAMCINOLONE 0.1% CREAM 15 GM TUBE TOP SCH ×2 (09:04→21:15)
[2021-02-26] MEDS: FUROSEMIDE 40 MG/4 ML VIAL IV SCH ×2 (09:06→21:15)
[2021-02-26] MEDS: DEXMEDETOMIDINE 200 MCG in SODIUM CHLORIDE 0.9% 48 ML IV PRN ×3 (09:36→21:16)
[2021-02-26] MEDS: cefTRIAXone 1,000 MG in SODIUM CHLORIDE 0.9% 100 ML IV SCH (18:14)
[2021-02-26] MEDS: SIMVASTATIN 10 MG TABLET PO SCH (21:15)
[2021-02-27] MEDS: INSULIN LISPRO 100 UNIT/ML SUBCUT SCH ×4 (00:59→18:13)
[2021-02-27] MEDS: ALBUTEROL/IPRATROPIUM 3 ML NEB RESP TX SCH ×6 (03:11→23:04)
[2021-02-27] MEDS: DEXMEDETOMIDINE 200 MCG in SODIUM CHLORIDE 0.9% 48 ML IV PRN ×2 (03:15→07:41)
[2021-02-27 04:57] LABS: ABG Base Excess 2.2 MMOL/L (-2.5-2.5); ABG HCO3 26.3 MMOL/L (20-26); ABG Oxygen Saturation 93.1 % (95-100); ABG PCO2 40.8 MM HG (35-48); ABG PH 7.425 (7.35-7.45); ABG PO2 67.2 MM HG (80-95); ABG TCO2 23.6 MMOL/L (23-27); Allen Test Positive; Pt O2 Delivery Device Ventilator
[2021-02-27 05:20] LABS: Hematocrit 36.7 VOL% (42.0-52.0); Hemoglobin 12.1 GM/DL (14.0-18.0); Immature Granulocytes % 0.7 %; Immature Granulocytes Absolute 0.09 #; Lymphocytes # 0.2 10*3/uL (1.4-4.0); Lymphocytes % 1.7 % (21.2-54.2); Mean Corpuscular Volume 84.6 FL (87-102); Mean Platelet Volume 9.1 FL (9.6-12.0); Neutrophils % 90.6 % (38.7-73.9); Platelet Count 126 T/CUMM (130-400); Red Blood Count 4.34 MC/CUMM (3.8-5.5); Red Cell Distribution Width 22.1 % (9.3-17.3); White Blood Count 12.3 T/CUMM (4-12)
[2021-02-27] MEDS: ALBUMIN 25% 25 GM/100 ML VIAL IV SCH ×3 (05:30→20:14)
[2021-02-27 05:41] LABS: Calcium 9.5 MG/DL (8.5-10.1); Potassium 3.8 MMOL/L (3.5-5.1)
[2021-02-27 05:44] LABS: Anisocytosis 2+; Band Neutrophils 5 % (0-10); Burr Cells 1+; Lymphocytes 2 % (20-55); Macrocytosis 1+; Ovalocytes Few; Platelet Estimate Adequate; Poikilocytosis 1+; Segmented Neutrophils 86 % (50-85); Target Cells Few; Total Cells Counted 100
[2021-02-27] MEDS: methylPREDNISolone SOD SUC 40 MG/1 ML VIAL IV SCH ×3 (05:53→22:28)
[2021-02-27] MEDS: CLINDAMYCIN INJ 600 MG/50 ML PREMIX IV SCH ×4 (06:05→22:28)
[2021-02-27] MEDS: PANTOPRAZOLE 40 MG TABLET PO SCH (08:49)
[2021-02-27] MEDS: busPIRone 5 MG TABLET PO SCH ×2 (08:49→20:12)
[2021-02-27] MEDS: buPROPion 75 MG TABLET PO SCH ×2 (08:49→20:12)
[2021-02-27] MEDS: AMIODARONE 200 MG TABLET PO SCH (08:49)
[2021-02-27] MEDS: FUROSEMIDE 40 MG/4 ML VIAL IV SCH ×2 (08:56→20:36)
[2021-02-27] MEDS: DOBUTamine 500 MG/250 ML PREMIX IV PRN ×2 (09:00→20:40)
[2021-02-27] MEDS: POTASSIUM CHLORIDE 20 MEQ/15 ML UDCUP PER TUBE SCH (09:19)
[2021-02-27] MEDS: TRIAMCINOLONE 0.1% CREAM 15 GM TUBE TOP SCH ×2 (10:34→20:36)
[2021-02-27] MEDS: DEXMEDETOMIDINE 400 MCG in SODIUM CHLORIDE 0.9% 96 ML IV PRN ×2 (10:45→17:53)
[2021-02-27] MEDS: MEGESTROL 400 MG/10 ML UDCUP PO SCH ×2 (11:59→20:35)
[2021-02-27] MEDS: DOCUSATE SODIUM 100 MG/10 ML UDCUP PER TUBE SCH ×2 (11:59→20:12)
[2021-02-27] MEDS: POLYETHYLENE GLYCOL POWDER 17 GM PACK PO SCH (11:59)
[2021-02-27] MEDS: MULTIVITAMIN LIQUID (CENTRUM) 60 ML BOTTLE PER TUBE SCH (11:59)
[2021-02-27] MEDS ORDERED: MAGNESIUM SULF RIDER 2 GM/50 ML PREMIX IV PRN (12:28)
[2021-02-27] MEDS ORDERED: MAGNESIUM SULF RIDER 4 GM/100 ML PREMIX IV PRN (12:28)
[2021-02-27] MEDS: POTASSIUM CHLORIDE RIDER 10 MEQ/100 ML PREMIX IV PRN ×3 (12:56→23:25)
[2021-02-27] MEDS: cefTRIAXone 1,000 MG in SODIUM CHLORIDE 0.9% 100 ML IV SCH (18:02)
[2021-02-27] MEDS: SIMVASTATIN 10 MG TABLET PO SCH (20:12)
[2021-02-27] MEDS: LORazepam 2 MG/1 ML VIAL IV PRN (22:29)
[2021-02-28] MEDS: INSULIN LISPRO 100 UNIT/ML SUBCUT SCH ×4 (00:03→18:18)
[2021-02-28] MEDS: POTASSIUM CHLORIDE RIDER 10 MEQ/100 ML PREMIX IV PRN ×2 (00:23→08:37)
[2021-02-28] MEDS: DEXMEDETOMIDINE 400 MCG in SODIUM CHLORIDE 0.9% 96 ML IV PRN ×4 (02:43→23:17)
[2021-02-28] MEDS: ALBUTEROL/IPRATROPIUM 3 ML NEB RESP TX SCH ×6 (03:35→23:30)
[2021-02-28 04:30] LABS: Basophils % 0.1 % (0.0-0.8); Hematocrit 37.9 VOL% (42.0-52.0); Hemoglobin 12.9 GM/DL (14.0-18.0); Immature Granulocytes % 1.2 %; Immature Granulocytes Absolute 0.13 #; Lymphocytes # 0.3 10*3/uL (1.4-4.0); Lymphocytes % 2.4 % (21.2-54.2); Mean Corpuscular Volume 82.9 FL (87-102); Mean Platelet Volume 9.8 FL (9.6-12.0); Monocytes % 5.2 % (1.7-12.7); Neutrophils % 91.1 % (38.7-73.9); Platelet Count 103 T/CUMM (130-400); Red Blood Count 4.57 MC/CUMM (3.8-5.5); Red Cell Distribution Width 22.2 % (9.3-17.3); White Blood Count 10.7 T/CUMM (4-12)
[2021-02-28 04:31] LABS: ABG HCO3 24.6 MMOL/L (20-26); ABG Oxygen Saturation 98.8 % (95-100); ABG PCO2 35.9 MM HG (35-48); ABG PH 7.454 (7.35-7.45); ABG PO2 135.8 MM HG (80-95); ABG TCO2 25.7 MMOL/L (23-27); Allen Test Positive; Pt O2 Delivery Device Ventilator
[2021-02-28 04:44] LABS: Calcium 9.4 MG/DL (8.5-10.1); Osmolality,Calculated 303.8 MOS/KG (273-304); Potassium 4.1 MMOL/L (3.5-5.1)
[2021-02-28] MEDS: ALBUMIN 25% 25 GM/100 ML VIAL IV SCH ×3 (05:20→21:12)
[2021-02-28 05:40] LABS: Hypochromasia Slight; Lymphocytes 3 % (20-55); Microcytosis 1+; Platelet Estimate Normal; Segmented Neutrophils 94 % (50-85); Total Cells Counted 100
[2021-02-28 05:44] LABS: Acanthocytes Few; Target Cells Few; Tear Drop Cells Few
[2021-02-28 05:45] LABS: Polychromasia Slight; Schistocytes Few
[2021-02-28] MEDS: CLINDAMYCIN INJ 600 MG/50 ML PREMIX IV SCH ×2 (06:27→14:38)
[2021-02-28] MEDS: LORazepam 2 MG/1 ML VIAL IV PRN ×2 (06:28→14:36)
[2021-02-28] MEDS: methylPREDNISolone SOD SUC 40 MG/1 ML VIAL IV SCH ×3 (06:28→21:32)
[2021-02-28] MEDS: AMIODARONE 200 MG TABLET PO SCH (08:26)
[2021-02-28] MEDS: buPROPion 75 MG TABLET PO SCH ×2 (08:26→21:31)
[2021-02-28] MEDS: busPIRone 5 MG TABLET PO SCH ×2 (08:26→21:31)
[2021-02-28] MEDS: FUROSEMIDE 40 MG/4 ML VIAL IV SCH ×3 (08:33→21:31)
[2021-02-28] MEDS: TRIAMCINOLONE 0.1% CREAM 15 GM TUBE TOP SCH ×2 (08:37→21:31)
[2021-02-28] MEDS ORDERED: PANTOPRAZOLE 40 MG VIAL IV SCH (09:00)
[2021-02-28] MEDS: POTASSIUM CHLORIDE 20 MEQ/15 ML UDCUP PER TUBE SCH (10:40)
[2021-02-28] MEDS: DOCUSATE SODIUM 100 MG/10 ML UDCUP PER TUBE SCH ×2 (10:40→21:31)
[2021-02-28] MEDS: MEGESTROL 400 MG/10 ML UDCUP PO SCH ×2 (10:40→21:13)
[2021-02-28] MEDS: POLYETHYLENE GLYCOL POWDER 17 GM PACK PO SCH (10:40)
[2021-02-28] MEDS: MULTIVITAMIN LIQUID (CENTRUM) 60 ML BOTTLE PER TUBE SCH (10:40)
[2021-02-28] MEDS: DOBUTamine 500 MG/250 ML PREMIX IV PRN (13:11)
[2021-02-28] MEDS: cefTRIAXone 1,000 MG in SODIUM CHLORIDE 0.9% 100 ML IV SCH (18:18)
[2021-02-28] MEDS: SIMVASTATIN 10 MG TABLET PO SCH (21:31)
[2021-03-01] MEDS: INSULIN LISPRO 100 UNIT/ML SUBCUT SCH ×5 (00:11→23:28)
[2021-03-01] MEDS: CLINDAMYCIN INJ 600 MG/50 ML PREMIX IV SCH ×4 (00:11→22:44)
[2021-03-01] MEDS: LORazepam 2 MG/1 ML VIAL IV PRN ×2 (01:51→09:30)
[2021-03-01] MEDS: ALBUTEROL/IPRATROPIUM 3 ML NEB RESP TX SCH ×6 (03:23→23:08)
[2021-03-01 03:39] LABS: Basophils % 0.1 % (0.0-0.8); Hematocrit 38.7 VOL% (42.0-52.0); Hemoglobin 12.8 GM/DL (14.0-18.0); Immature Granulocytes % 0.6 %; Immature Granulocytes Absolute 0.07 #; Lymphocytes # 0.4 10*3/uL (1.4-4.0); Lymphocytes % 3.2 % (21.2-54.2); Mean Corpuscular HGB Conc 33.1 GM/DL (32-36); Mean Corpuscular Volume 84.1 FL (87-102); Mean Platelet Volume 10.6 FL (9.6-12.0); Monocytes % 5.9 % (1.7-12.7); Neutrophils % 90.2 % (38.7-73.9); Red Cell Distribution Width 22.2 % (9.3-17.3); White Blood Count 11.1 T/CUMM (4-12)
[2021-03-01 03:47] LABS: Platelet Count 99 T/CUMM (130-400)
[2021-03-01 03:55] LABS: Calcium 9.8 MG/DL (8.5-10.1); Osmolality,Calculated 307.8 MOS/KG (273-304); Potassium 3.9 MMOL/L (3.5-5.1)
[2021-03-01] MEDS: ALBUMIN 25% 25 GM/100 ML VIAL IV SCH ×3 (03:59→20:30)
[2021-03-01 04:00] LABS: Lymphocytes 2 % (20-55); Platelet Estimate Decreased; Segmented Neutrophils 93 % (50-85); Total Cells Counted 100
[2021-03-01 04:01] LABS: Hypochromasia Slight; Macrocytosis Slight; Ovalocytes Slight
[2021-03-01 04:02] LABS: Acanthocytes Few
[2021-03-01 04:31] LABS: ABG Base Excess 1.2 MMOL/L (-2.5-2.5); ABG HCO3 25.5 MMOL/L (20-26); ABG Oxygen Saturation 99.6 % (95-100); ABG PCO2 35.7 MM HG (35-48); ABG PH 7.449 (7.35-7.45); ABG TCO2 21.5 MMOL/L (23-27); Allen Test Positive; Pt O2 Delivery Device Ventilator
[2021-03-01] MEDS: POTASSIUM CHLORIDE RIDER 10 MEQ/100 ML PREMIX IV PRN (04:59)
[2021-03-01] MEDS: FUROSEMIDE 40 MG/4 ML VIAL IV SCH ×2 (06:22→18:10)
[2021-03-01] MEDS: DEXMEDETOMIDINE 400 MCG in SODIUM CHLORIDE 0.9% 96 ML IV PRN ×3 (06:23→21:49)
[2021-03-01] MEDS: POTASSIUM CHLORIDE 20 MEQ/15 ML UDCUP PER TUBE SCH (09:00)
[2021-03-01] MEDS: POLYETHYLENE GLYCOL POWDER 17 GM PACK PO SCH (09:00)
[2021-03-01] MEDS: FAMOTIDINE 20 MG/2 ML VIAL IV SCH (09:35)
[2021-03-01] MEDS: busPIRone 5 MG TABLET PO SCH ×2 (09:40→20:30)
[2021-03-01] MEDS: AMIODARONE 200 MG TABLET PO SCH (09:40)
[2021-03-01] MEDS: methylPREDNISolone SOD SUC 40 MG/1 ML VIAL IV SCH ×2 (09:40→22:40)
[2021-03-01] MEDS: DOCUSATE SODIUM 100 MG/10 ML UDCUP PER TUBE SCH ×2 (09:40→20:30)
[2021-03-01] MEDS: MULTIVITAMIN LIQUID (CENTRUM) 60 ML BOTTLE PER TUBE SCH (09:40)
[2021-03-01] MEDS: buPROPion 75 MG TABLET PO SCH ×2 (09:40→20:30)
[2021-03-01] MEDS: TRIAMCINOLONE 0.1% CREAM 15 GM TUBE TOP SCH ×2 (10:15→20:30)
[2021-03-01] MEDS: cefTRIAXone 1,000 MG in SODIUM CHLORIDE 0.9% 100 ML IV SCH (17:50)
[2021-03-01] MEDS: SIMVASTATIN 10 MG TABLET PO SCH (20:30)
[2021-03-02] MEDS: DOBUTamine 500 MG/250 ML PREMIX IV PRN (02:30)
[2021-03-02] MEDS: ALBUTEROL/IPRATROPIUM 3 ML NEB RESP TX SCH ×6 (02:38→23:05)
[2021-03-02 03:18] LABS: ABG Base Excess 0.7 MMOL/L (-2.5-2.5); ABG Oxygen Saturation 98.2 % (95-100); ABG PH 7.511 (7.35-7.45); ABG PO2 92.7 MM HG (80-95); ABG TCO2 19.2 MMOL/L (23-27); Allen Test Positive; Pt O2 Delivery Device Ventilator
[2021-03-02] MEDS: ALBUMIN 25% 25 GM/100 ML VIAL IV SCH ×3 (03:22→20:07)
[2021-03-02 03:55] LABS: Basophils % 0.1 % (0.0-0.8); Hematocrit 38.9 VOL% (42.0-52.0); Immature Granulocytes % 0.6 %; Immature Granulocytes Absolute 0.07 #; Lymphocytes # 0.4 10*3/uL (1.4-4.0); Mean Corpuscular HGB Conc 33.4 GM/DL (32-36); Mean Corpuscular Volume 83.8 FL (87-102); Monocytes % 4.1 % (1.7-12.7); Neutrophils % 92.2 % (38.7-73.9); Platelet Count 81 T/CUMM (130-400); Red Blood Count 4.64 MC/CUMM (3.8-5.5); Red Cell Distribution Width 22.5 % (9.3-17.3); White Blood Count 12.5 T/CUMM (4-12)
[2021-03-02] MEDS: LORazepam 2 MG/1 ML VIAL IV PRN ×3 (04:02→21:25)
[2021-03-02 04:10] LABS: Calcium 9.8 MG/DL (8.5-10.1); Osmolality,Calculated 313.5 MOS/KG (273-304); Potassium 4.1 MMOL/L (3.5-5.1)
[2021-03-02 04:15] LABS: Lymphocytes 2 % (20-55); Platelet Estimate Decreased; Segmented Neutrophils 95 % (50-85); Total Cells Counted 100
[2021-03-02 04:16] LABS: Hypochromasia Slight
[2021-03-02 04:17] LABS: Macrocytosis Slight
[2021-03-02] MEDS: DEXMEDETOMIDINE 400 MCG in SODIUM CHLORIDE 0.9% 96 ML IV PRN ×3 (04:50→22:00)
[2021-03-02] MEDS: INSULIN LISPRO 100 UNIT/ML SUBCUT SCH ×4 (05:31→23:42)
[2021-03-02] MEDS: CLINDAMYCIN INJ 600 MG/50 ML PREMIX IV SCH ×3 (06:05→22:26)
[2021-03-02] MEDS: FUROSEMIDE 40 MG/4 ML VIAL IV SCH ×2 (08:05→15:45)
[2021-03-02] MEDS: buPROPion 75 MG TABLET PO SCH ×2 (08:05→20:06)
[2021-03-02] MEDS: DOCUSATE SODIUM 100 MG/10 ML UDCUP PER TUBE SCH ×2 (08:05→20:06)
[2021-03-02] MEDS: FAMOTIDINE 20 MG/2 ML VIAL IV SCH (08:05)
[2021-03-02] MEDS: AMIODARONE 200 MG TABLET PO SCH (08:05)
[2021-03-02] MEDS: MULTIVITAMIN LIQUID (CENTRUM) 60 ML BOTTLE PER TUBE SCH (08:05)
[2021-03-02] MEDS: busPIRone 5 MG TABLET PO SCH ×2 (08:05→20:06)
[2021-03-02] MEDS: POTASSIUM CHLORIDE 20 MEQ/15 ML UDCUP PER TUBE SCH (08:05)
[2021-03-02] MEDS: LEVOFLOXACIN INJ 750 MG/150 ML PREMIX IV SCH (08:35)
[2021-03-02] MEDS: POLYETHYLENE GLYCOL POWDER 17 GM PACK PO SCH (09:00)
[2021-03-02] MEDS: methylPREDNISolone SOD SUC 40 MG/1 ML VIAL IV SCH ×2 (09:15→22:20)
[2021-03-02] MEDS: TRIAMCINOLONE 0.1% CREAM 15 GM TUBE TOP SCH ×2 (09:45→21:03)
[2021-03-02] MEDS: METOCLOPRAMIDE 10 MG/2 ML VIAL IV SCH ×2 (11:25→17:45)
[2021-03-02] MEDS: SIMVASTATIN 10 MG TABLET PO SCH (20:07)
[2021-03-03] MEDS: METOCLOPRAMIDE 10 MG/2 ML VIAL IV SCH ×4 (00:28→17:44)
[2021-03-03] MEDS: ALBUMIN 25% 25 GM/100 ML VIAL IV SCH ×3 (03:09→20:03)
[2021-03-03 03:27] LABS: Basophils % 0.1 % (0.0-0.8); Hematocrit 36.6 VOL% (42.0-52.0); Hemoglobin 12.3 GM/DL (14.0-18.0); Immature Granulocytes % 0.4 %; Immature Granulocytes Absolute 0.06 #; Lymphocytes # 0.4 10*3/uL (1.4-4.0); Lymphocytes % 2.8 % (21.2-54.2); Mean Corpuscular HGB Conc 33.6 GM/DL (32-36); Mean Corpuscular Volume 83.2 FL (87-102); Monocytes % 4.1 % (1.7-12.7); Neutrophils % 92.6 % (38.7-73.9); Platelet Count 70 T/CUMM (130-400); Red Cell Distribution Width 22.2 % (9.3-17.3); White Blood Count 14.2 T/CUMM (4-12)
[2021-03-03 03:41] LABS: Albumin 4.9 G/DL (3.4-5.0); Bilirubin,Total 1.6 MG/DL (0.2-1.0); Calcium 9.5 MG/DL (8.5-10.1); Osmolality,Calculated 324.3 MOS/KG (273-304); Potassium 4.2 MMOL/L (3.5-5.1); Total Protein 6.5 G/DL (6.4-8.2)
[2021-03-03 04:02] LABS: Lymphocytes 2 % (20-55); Platelet Estimate Decreased; Segmented Neutrophils 95 % (50-85); Total Cells Counted 100
[2021-03-03 04:03] LABS: Hypochromasia 1+; Microcytosis 1+
[2021-03-03 04:18] LABS: ABG Base Excess -0.4 MMOL/L (-2.5-2.5); ABG HCO3 24.1 MMOL/L (20-26); ABG Oxygen Saturation 99.5 % (95-100); ABG PCO2 31.3 MM HG (35-48); ABG PH 7.464 (7.35-7.45); ABG TCO2 19.7 MMOL/L (23-27); Allen Test Positive; Pt O2 Delivery Device Ventilator
[2021-03-03] MEDS: ALBUTEROL/IPRATROPIUM 3 ML NEB RESP TX SCH ×6 (04:34→23:24)
[2021-03-03] MEDS: CLINDAMYCIN INJ 600 MG/50 ML PREMIX IV SCH ×3 (06:20→22:17)
[2021-03-03] MEDS: INSULIN LISPRO 100 UNIT/ML SUBCUT SCH ×3 (06:20→17:44)
[2021-03-03] MEDS: DEXMEDETOMIDINE 400 MCG in SODIUM CHLORIDE 0.9% 96 ML IV PRN ×3 (06:50→23:05)
[2021-03-03] MEDS: DOCUSATE SODIUM 100 MG/10 ML UDCUP PER TUBE SCH ×2 (08:07→20:03)
[2021-03-03] MEDS: AMIODARONE 200 MG TABLET PO SCH (08:07)
[2021-03-03] MEDS: buPROPion 75 MG TABLET PO SCH ×2 (08:07→20:04)
[2021-03-03] MEDS: busPIRone 5 MG TABLET PO SCH ×2 (08:07→20:03)
[2021-03-03] MEDS: POTASSIUM CHLORIDE 20 MEQ/15 ML UDCUP PER TUBE SCH (08:08)
[2021-03-03] MEDS: TRIAMCINOLONE 0.1% CREAM 15 GM TUBE TOP SCH ×2 (08:08→20:04)
[2021-03-03] MEDS: FAMOTIDINE 20 MG/2 ML VIAL IV SCH (08:08)
[2021-03-03] MEDS: POLYETHYLENE GLYCOL POWDER 17 GM PACK PO SCH (08:08)
[2021-03-03] MEDS: MULTIVITAMIN LIQUID (CENTRUM) 60 ML BOTTLE PER TUBE SCH (08:20)
[2021-03-03] MEDS ORDERED: FUROSEMIDE 40 MG/4 ML VIAL ONE (08:56)
[2021-03-03] MEDS ORDERED: FUROSEMIDE 40 MG/4 ML VIAL IV ONE (09:32)
[2021-03-03] MEDS: methylPREDNISolone SOD SUC 40 MG/1 ML VIAL IV SCH ×2 (10:36→22:14)
[2021-03-03] MEDS: LORazepam 2 MG/1 ML VIAL IV PRN ×2 (13:25→20:01)
[2021-03-03] MEDS: SIMVASTATIN 10 MG TABLET PO SCH (20:04)
[2021-03-04] MEDS: LORazepam 2 MG/1 ML VIAL IV PRN ×3 (00:10→18:30)
[2021-03-04] MEDS: METOCLOPRAMIDE 10 MG/2 ML VIAL IV SCH ×4 (00:10→17:52)
[2021-03-04] MEDS: INSULIN LISPRO 100 UNIT/ML SUBCUT SCH ×4 (00:15→17:42)
[2021-03-04] MEDS: ALBUTEROL/IPRATROPIUM 3 ML NEB RESP TX SCH ×6 (02:42→22:52)
[2021-03-04] MEDS: ALBUMIN 25% 25 GM/100 ML VIAL IV SCH ×3 (03:45→20:35)
[2021-03-04 04:13] LABS: Basophils % 0.1 % (0.0-0.8); Hematocrit 36.8 VOL% (42.0-52.0); Hemoglobin 12.5 GM/DL (14.0-18.0); Immature Granulocytes % 0.8 %; Immature Granulocytes Absolute 0.11 #; Lymphocytes # 0.2 10*3/uL (1.4-4.0); Lymphocytes % 1.8 % (21.2-54.2); Mean Corpuscular Volume 82.7 FL (87-102); Monocytes % 3.4 % (1.7-12.7); Neutrophils % 93.9 % (38.7-73.9); Platelet Count 64 T/CUMM (130-400); Red Blood Count 4.45 MC/CUMM (3.8-5.5); White Blood Count 13.7 T/CUMM (4-12)
[2021-03-04 04:30] LABS: Albumin 4.6 G/DL (3.4-5.0); Bilirubin,Total 2.5 MG/DL (0.2-1.0); Calcium 9.4 MG/DL (8.5-10.1); Osmolality,Calculated 337.6 MOS/KG (273-304); Potassium 3.9 MMOL/L (3.5-5.1); Total Protein 6.4 G/DL (6.4-8.2)
[2021-03-04 04:33] LABS: Acanthocytes Few; Hypochromasia 1+; Lymphocytes 4 % (20-55); Segmented Neutrophils 96 % (50-85); Total Cells Counted 100
[2021-03-04 04:34] LABS: Microcytosis 1+; Ovalocytes Slight; Target Cells Few
[2021-03-04 04:35] LABS: Platelet Estimate Decreased
[2021-03-04] MEDS: DEXMEDETOMIDINE 400 MCG in SODIUM CHLORIDE 0.9% 96 ML IV PRN ×2 (06:44→17:02)
[2021-03-04] MEDS: AMIODARONE 200 MG TABLET PO SCH (08:00)
[2021-03-04] MEDS: buPROPion 75 MG TABLET PO SCH ×2 (08:00→20:35)
[2021-03-04] MEDS: FAMOTIDINE 20 MG/2 ML VIAL IV SCH (08:00)
[2021-03-04] MEDS: POTASSIUM CHLORIDE 20 MEQ/15 ML UDCUP PER TUBE SCH (08:00)
[2021-03-04] MEDS: POLYETHYLENE GLYCOL POWDER 17 GM PACK PO SCH (08:00)
[2021-03-04] MEDS: busPIRone 5 MG TABLET PO SCH ×2 (08:00→20:35)
[2021-03-04] MEDS: FUROSEMIDE 40 MG/4 ML VIAL IV SCH ×2 (08:00→15:11)
[2021-03-04] MEDS: DOCUSATE SODIUM 100 MG/10 ML UDCUP PER TUBE SCH ×2 (08:01→20:36)
[2021-03-04] MEDS: TRIAMCINOLONE 0.1% CREAM 15 GM TUBE TOP SCH ×2 (08:01→20:36)
[2021-03-04] MEDS: MULTIVITAMIN LIQUID (CENTRUM) 60 ML BOTTLE PER TUBE SCH (08:01)
[2021-03-04] MEDS: CLINDAMYCIN INJ 600 MG/50 ML PREMIX IV SCH ×3 (08:12→22:55)
[2021-03-04 08:33] LABS: ABG Base Excess 0.2 MMOL/L (-2.5-2.5); ABG HCO3 23.6 MMOL/L (20-26); ABG Oxygen Saturation 98.3 % (95-100); ABG PCO2 34.3 MM HG (35-48); ABG PH 7.456 (7.35-7.45); ABG PO2 120.9 MM HG (80-95); ABG TCO2 24.7 MMOL/L (23-27); Allen Test Positive; Pt O2 Delivery Device Ventilator
[2021-03-04] MEDS: LEVOFLOXACIN INJ 750 MG/150 ML PREMIX IV SCH (08:33)
[2021-03-04] MEDS ORDERED: FUROSEMIDE 40 MG/4 ML VIAL IV SCH (09:00)
[2021-03-04] MEDS: methylPREDNISolone SOD SUC 40 MG/1 ML VIAL IV SCH ×2 (10:54→22:55)
[2021-03-04] MEDS ORDERED: ETOMIDATE 20 MG/10 ML VIAL IV ONE ×2 (14:05→14:08)
[2021-03-04] MEDS ORDERED: SUCCINYLCHOLINE 200 MG/10 ML VIAL ONE (14:06)
[2021-03-04] MEDS ORDERED: SUCCINYLCHOLINE 200 MG/10 ML VIAL IV ONE (14:08)
[2021-03-04 15:21] LABS: Glucose,Pleural Fluid 166 MG/DL; LDH,Body Fluid 112 U/L
[2021-03-04 15:52] LABS: Lymphocytes,Pleural Fluid 15 %; Monocytes,Pleural Fluid 56 %; Neutrophils,Pleural Fluid 29 %; RBC,Pleural Fluid 64369 T/CUMM
[2021-03-04] MEDS ORDERED: SODIUM CHLORIDE 0.9% 250 ML IV ONE (16:41)
[2021-03-04] MEDS: DOBUTamine 500 MG/250 ML PREMIX IV PRN (17:52)
[2021-03-04] MEDS: SIMVASTATIN 10 MG TABLET PO SCH (20:35)
[2021-03-04] MEDS: HALOPERIDOL 5 MG/ML AMP IM PRN (20:44)
[2021-03-05] MEDS: DEXMEDETOMIDINE 400 MCG in SODIUM CHLORIDE 0.9% 96 ML IV PRN ×4 (00:20→22:50)
[2021-03-05] MEDS: INSULIN LISPRO 100 UNIT/ML SUBCUT SCH ×4 (00:24→18:15)
[2021-03-05] MEDS: METOCLOPRAMIDE 10 MG/2 ML VIAL IV SCH ×4 (00:24→17:55)
[2021-03-05] MEDS: ALBUTEROL/IPRATROPIUM 3 ML NEB RESP TX SCH ×7 (03:02→23:14)
[2021-03-05 03:35] LABS: Basophils % 0.1 % (0.0-0.8); Hematocrit 37.1 VOL% (42.0-52.0); Hemoglobin 12.4 GM/DL (14.0-18.0); Immature Granulocytes % 0.4 %; Immature Granulocytes Absolute 0.05 #; Lymphocytes # 0.3 10*3/uL (1.4-4.0); Lymphocytes % 2.7 % (21.2-54.2); Mean Corpuscular HGB Conc 33.4 GM/DL (32-36); Mean Corpuscular Volume 83.2 FL (87-102); Neutrophils % 93.8 % (38.7-73.9); Platelet Count 55 T/CUMM (130-400); Red Blood Count 4.46 MC/CUMM (3.8-5.5); Red Cell Distribution Width 22.4 % (9.3-17.3); White Blood Count 11.5 T/CUMM (4-12)
[2021-03-05] MEDS: ALBUMIN 25% 25 GM/100 ML VIAL IV SCH ×3 (03:35→20:33)
[2021-03-05 04:11] LABS: Albumin 4.6 G/DL (3.4-5.0); Bilirubin,Total 2.7 MG/DL (0.2-1.0); Calcium 9.2 MG/DL (8.5-10.1); Osmolality,Calculated 339.4 MOS/KG (273-304); Potassium 3.8 MMOL/L (3.5-5.1)
[2021-03-05 04:14] LABS: Band Neutrophils 1 % (0-10); Lymphocytes 2 % (20-55); Platelet Estimate Decreased; Segmented Neutrophils 95 % (50-85); Total Cells Counted 100
[2021-03-05 04:15] LABS: Hypochromasia Slight; Microcytosis Slight
[2021-03-05 04:36] LABS: Allen Test Positive; Pt O2 Delivery Device Ventilator
[2021-03-05 04:37] LABS: ABG Base Excess 0.3 MMOL/L (-2.5-2.5); ABG HCO3 24.7 MMOL/L (20-26); ABG PCO2 31.4 MM HG (35-48); ABG PH 7.475 (7.35-7.45); ABG TCO2 20.2 MMOL/L (23-27)
[2021-03-05] MEDS: CLINDAMYCIN INJ 600 MG/50 ML PREMIX IV SCH ×3 (06:03→23:55)
[2021-03-05] MEDS: FUROSEMIDE 40 MG/4 ML VIAL IV SCH (08:00)
[2021-03-05] MEDS: DOCUSATE SODIUM 100 MG/10 ML UDCUP PER TUBE SCH ×2 (08:55→20:33)
[2021-03-05] MEDS: POTASSIUM CHLORIDE 20 MEQ/15 ML UDCUP PER TUBE SCH (08:55)
[2021-03-05] MEDS: busPIRone 5 MG TABLET PO SCH ×2 (08:55→20:33)
[2021-03-05] MEDS: FUROSEMIDE 40 MG TABLET PO SCH (08:55)
[2021-03-05] MEDS: buPROPion 75 MG TABLET PO SCH ×2 (08:55→20:33)
[2021-03-05] MEDS: FAMOTIDINE 20 MG/2 ML VIAL IV SCH (08:55)
[2021-03-05] MEDS: POLYETHYLENE GLYCOL POWDER 17 GM PACK PO SCH (08:55)
[2021-03-05] MEDS: methylPREDNISolone SOD SUC 40 MG/1 ML VIAL IV SCH ×2 (08:55→23:30)
[2021-03-05] MEDS: AMIODARONE 200 MG TABLET PO SCH (08:55)
[2021-03-05] MEDS: MULTIVITAMIN LIQUID (CENTRUM) 60 ML BOTTLE PER TUBE SCH (09:00)
[2021-03-05] MEDS: TRIAMCINOLONE 0.1% CREAM 15 GM TUBE TOP SCH ×2 (09:10→21:47)
[2021-03-05] MEDS: LORazepam 2 MG/1 ML VIAL IV PRN (16:25)
[2021-03-05] MEDS: SIMVASTATIN 10 MG TABLET PO SCH (20:33)
[2021-03-06] MEDS: METOCLOPRAMIDE 10 MG/2 ML VIAL IV SCH ×4 (00:45→17:15)
[2021-03-06] MEDS: INSULIN LISPRO 100 UNIT/ML SUBCUT SCH ×4 (00:46→18:25)
[2021-03-06] MEDS: DOBUTamine 500 MG/250 ML PREMIX IV PRN (03:40)
[2021-03-06 04:09] LABS: Basophils % 0.1 % (0.0-0.8); Hematocrit 34.8 VOL% (42.0-52.0); Hemoglobin 11.7 GM/DL (14.0-18.0); Immature Granulocytes % 0.7 %; Immature Granulocytes Absolute 0.08 #; Lymphocytes # 0.2 10*3/uL (1.4-4.0); Lymphocytes % 1.9 % (21.2-54.2); Mean Corpuscular HGB Conc 33.6 GM/DL (32-36); Mean Corpuscular Volume 83.7 FL (87-102); Neutrophils % 94.3 % (38.7-73.9); Red Blood Count 4.16 MC/CUMM (3.8-5.5); Red Cell Distribution Width 22.5 % (9.3-17.3); White Blood Count 12.3 T/CUMM (4-12)
[2021-03-06 04:14] LABS: Platelet Count 47 T/CUMM (130-400)
[2021-03-06] MEDS: ALBUTEROL/IPRATROPIUM 3 ML NEB RESP TX SCH ×5 (04:18→19:10)
[2021-03-06 04:19] LABS: Albumin 4.7 G/DL (3.4-5.0); Bilirubin,Total 2.6 MG/DL (0.2-1.0); Calcium 9.8 MG/DL (8.5-10.1); Osmolality,Calculated 345.3 MOS/KG (273-304); Potassium 3.6 MMOL/L (3.5-5.1); Total Protein 6.5 G/DL (6.4-8.2)
[2021-03-06 04:27] LABS: ABG Base Excess -0.4 MMOL/L (-2.5-2.5); ABG HCO3 24.1 MMOL/L (20-26); ABG Oxygen Saturation 99.3 % (95-100); ABG PCO2 30.3 MM HG (35-48); ABG PH 7.475 (7.35-7.45); ABG TCO2 19.5 MMOL/L (23-27); Allen Test Positive; Pt O2 Delivery Device Ventilator
[2021-03-06] MEDS: ALBUMIN 25% 25 GM/100 ML VIAL IV SCH ×3 (04:32→20:03)
[2021-03-06 04:45] LABS: Acanthocytes Few; Band Neutrophils 2 % (0-10); Hypochromasia 1+; Lymphocytes 3 % (20-55); Microcytosis 1+; Segmented Neutrophils 92 % (50-85); Total Cells Counted 100
[2021-03-06 04:46] LABS: Burr Cells Slight; Platelet Estimate Decreased; Target Cells Slight
[2021-03-06] MEDS: DEXMEDETOMIDINE 400 MCG in SODIUM CHLORIDE 0.9% 96 ML IV PRN ×3 (05:12→20:07)
[2021-03-06] MEDS: CLINDAMYCIN INJ 600 MG/50 ML PREMIX IV SCH (06:02)
[2021-03-06] MEDS: POTASSIUM CHLORIDE RIDER 10 MEQ/100 ML PREMIX IV PRN (06:02)
[2021-03-06] MEDS: methylPREDNISolone SOD SUC 40 MG/1 ML VIAL IV SCH ×2 (08:40→22:41)
[2021-03-06] MEDS: FAMOTIDINE 20 MG/2 ML VIAL IV SCH (08:40)
[2021-03-06] MEDS: busPIRone 5 MG TABLET PO SCH ×2 (08:45→21:20)
[2021-03-06] MEDS: DOCUSATE SODIUM 100 MG/10 ML UDCUP PER TUBE SCH ×2 (08:45→21:20)
[2021-03-06] MEDS: AMIODARONE 200 MG TABLET PO SCH (08:45)
[2021-03-06] MEDS: LEVOFLOXACIN INJ 750 MG/150 ML PREMIX IV SCH (08:45)
[2021-03-06] MEDS: POLYETHYLENE GLYCOL POWDER 17 GM PACK PO SCH (08:45)
[2021-03-06] MEDS: MULTIVITAMIN LIQUID (CENTRUM) 60 ML BOTTLE PER TUBE SCH (08:45)
[2021-03-06] MEDS: FUROSEMIDE 40 MG TABLET PO SCH (08:45)
[2021-03-06] MEDS: buPROPion 75 MG TABLET PO SCH ×2 (08:45→21:20)
[2021-03-06] MEDS: POTASSIUM CHLORIDE 20 MEQ/15 ML UDCUP PER TUBE SCH (08:45)
[2021-03-06] MEDS: TRIAMCINOLONE 0.1% CREAM 15 GM TUBE TOP SCH ×2 (11:45→21:21)
[2021-03-06] MEDS: LORazepam 2 MG/1 ML VIAL IV PRN ×2 (13:10→22:44)
[2021-03-06] MEDS: SIMVASTATIN 10 MG TABLET PO SCH (21:19)
[2021-03-07] MEDS: METOCLOPRAMIDE 10 MG/2 ML VIAL IV SCH ×5 (00:08→23:43)
[2021-03-07] MEDS: INSULIN LISPRO 100 UNIT/ML SUBCUT SCH ×5 (00:10→23:43)
[2021-03-07] MEDS: DEXMEDETOMIDINE 400 MCG in SODIUM CHLORIDE 0.9% 96 ML IV PRN ×3 (03:08→17:50)
[2021-03-07] MEDS: ALBUTEROL/IPRATROPIUM 3 ML NEB RESP TX SCH ×5 (03:36→19:54)
[2021-03-07 04:02] LABS: ABG Base Excess 0.2 MMOL/L (-2.5-2.5); ABG HCO3 24.6 MMOL/L (20-26); ABG Oxygen Saturation 99.3 % (95-100); ABG PCO2 32.3 MM HG (35-48); ABG PH 7.465 (7.35-7.45); ABG TCO2 20.4 MMOL/L (23-27); Allen Test Positive; Pt O2 Delivery Device Ventilator
[2021-03-07] MEDS: ALBUMIN 25% 25 GM/100 ML VIAL IV SCH ×3 (04:30→19:23)
[2021-03-07 05:31] LABS: Basophils % 0.1 % (0.0-0.8); Hematocrit 37.3 VOL% (42.0-52.0); Hemoglobin 12.5 GM/DL (14.0-18.0); Immature Granulocytes Absolute 0.14 #; Lymphocytes # 0.3 10*3/uL (1.4-4.0); Lymphocytes % 2.3 % (21.2-54.2); Mean Corpuscular HGB Conc 33.5 GM/DL (32-36); Mean Corpuscular Volume 84.2 FL (87-102); Monocytes % 2.5 % (1.7-12.7); Neutrophils % 94.1 % (38.7-73.9); Red Blood Count 4.43 MC/CUMM (3.8-5.5); Red Cell Distribution Width 23.1 % (9.3-17.3); White Blood Count 13.7 T/CUMM (4-12)
[2021-03-07 05:46] LABS: Platelet Count 38 T/CUMM (130-400)
[2021-03-07 05:55] LABS: Calcium 9.8 MG/DL (8.5-10.1); Osmolality,Calculated 358.6 MOS/KG (273-304); Potassium 3.7 MMOL/L (3.5-5.1)
[2021-03-07 06:23] LABS: Burr Cells Slight; Hypochromasia 1+; Lymphocytes 5 % (20-55); Segmented Neutrophils 94 % (50-85); Target Cells Slight; Total Cells Counted 100
[2021-03-07 06:24] LABS: Acanthocytes Few; Microcytosis 1+; Ovalocytes Slight; Platelet Estimate Decreased
[2021-03-07] MEDS: FAMOTIDINE 20 MG/2 ML VIAL IV SCH (08:03)
[2021-03-07] MEDS: DOCUSATE SODIUM 100 MG/10 ML UDCUP PER TUBE SCH ×2 (08:03→20:13)
[2021-03-07] MEDS: POLYETHYLENE GLYCOL POWDER 17 GM PACK PO SCH (08:03)
[2021-03-07] MEDS: buPROPion 75 MG TABLET PO SCH ×2 (08:03→20:13)
[2021-03-07] MEDS: busPIRone 5 MG TABLET PO SCH ×2 (08:03→20:13)
[2021-03-07] MEDS: MULTIVITAMIN LIQUID (CENTRUM) 60 ML BOTTLE PER TUBE SCH (08:03)
[2021-03-07] MEDS: POTASSIUM CHLORIDE 20 MEQ/15 ML UDCUP PER TUBE SCH (08:03)
[2021-03-07] MEDS: AMIODARONE 200 MG TABLET PO SCH (08:04)
[2021-03-07] MEDS: TRIAMCINOLONE 0.1% CREAM 15 GM TUBE TOP SCH ×2 (08:04→20:14)
[2021-03-07] MEDS: FUROSEMIDE 40 MG/4 ML VIAL IV SCH (08:33)
[2021-03-07] MEDS: methylPREDNISolone SOD SUC 40 MG/1 ML VIAL IV SCH ×2 (09:43→21:51)
[2021-03-07] MEDS: DOBUTamine 500 MG/250 ML PREMIX IV PRN (13:31)
[2021-03-07] MEDS: LORazepam 2 MG/1 ML VIAL IV PRN (19:24)
[2021-03-07] MEDS: SIMVASTATIN 10 MG TABLET PO SCH (20:13)
[2021-03-08] MEDS: ALBUTEROL/IPRATROPIUM 3 ML NEB RESP TX SCH ×6 (00:23→18:59)
[2021-03-08] MEDS: DEXMEDETOMIDINE 400 MCG in SODIUM CHLORIDE 0.9% 96 ML IV PRN ×3 (01:04→17:55)
[2021-03-08] MEDS: ALBUMIN 25% 25 GM/100 ML VIAL IV SCH ×3 (03:24→20:19)
[2021-03-08 03:45] LABS: ABG Base Excess 0.7 MMOL/L (-2.5-2.5); ABG Oxygen Saturation 97.8 % (95-100); ABG PCO2 33.7 MM HG (35-48); ABG PH 7.459 (7.35-7.45); ABG PO2 96.4 MM HG (80-95)
[2021-03-08 05:14] LABS: Basophils % 0.1 % (0.0-0.8); Hematocrit 35.8 VOL% (42.0-52.0); Hemoglobin 11.8 GM/DL (14.0-18.0); Immature Granulocytes Absolute 0.11 #; Lymphocytes # 0.6 10*3/uL (1.4-4.0); Lymphocytes % 5.1 % (21.2-54.2); Mean Corpuscular Volume 84.8 FL (87-102); Monocytes % 4.4 % (1.7-12.7); Neutrophils % 89.4 % (38.7-73.9); Red Blood Count 4.22 MC/CUMM (3.8-5.5); Red Cell Distribution Width 23.1 % (9.3-17.3); White Blood Count 11.6 T/CUMM (4-12)
[2021-03-08 05:19] LABS: Platelet Count 33 T/CUMM (130-400)
[2021-03-08 05:33] LABS: Burr Cells Slight; Hypochromasia Slight; Lymphocytes 4 % (20-55); Ovalocytes Slight; Platelet Estimate Decreased; Segmented Neutrophils 92 % (50-85); Total Cells Counted 100
[2021-03-08 05:34] LABS: Microcytosis 1+
[2021-03-08] MEDS: METOCLOPRAMIDE 10 MG/2 ML VIAL IV SCH ×4 (06:01→23:20)
[2021-03-08] MEDS: INSULIN LISPRO 100 UNIT/ML SUBCUT SCH ×3 (06:01→18:25)
[2021-03-08 06:37] LABS: Calcium 9.8 MG/DL (8.5-10.1); Osmolality,Calculated 375.7 MOS/KG (273-304); Potassium 3.5 MMOL/L (3.5-5.1)
[2021-03-08] MEDS: DEXTROSE 5% 1,000 ML IV SCH ×3 (08:35→21:37)
[2021-03-08] MEDS: LEVOFLOXACIN INJ 750 MG/150 ML PREMIX IV SCH (09:45)
[2021-03-08] MEDS: POLYETHYLENE GLYCOL POWDER 17 GM PACK PO SCH (09:46)
[2021-03-08] MEDS: FUROSEMIDE 40 MG/4 ML VIAL IV SCH (09:46)
[2021-03-08] MEDS: FAMOTIDINE 20 MG/2 ML VIAL IV SCH (09:46)
[2021-03-08] MEDS: DOCUSATE SODIUM 100 MG/10 ML UDCUP PER TUBE SCH ×2 (09:46→20:19)
[2021-03-08] MEDS: AMIODARONE 200 MG TABLET PO SCH (09:46)
[2021-03-08] MEDS: MULTIVITAMIN LIQUID (CENTRUM) 60 ML BOTTLE PER TUBE SCH (09:46)
[2021-03-08] MEDS: POTASSIUM CHLORIDE 20 MEQ/15 ML UDCUP PER TUBE SCH (09:46)
[2021-03-08] MEDS: busPIRone 5 MG TABLET PO SCH ×2 (09:46→20:19)
[2021-03-08] MEDS: buPROPion 75 MG TABLET PO SCH ×2 (09:46→20:19)
[2021-03-08] MEDS: TRIAMCINOLONE 0.1% CREAM 15 GM TUBE TOP SCH ×2 (09:46→20:20)
[2021-03-08] MEDS: methylPREDNISolone SOD SUC 40 MG/1 ML VIAL IV SCH ×2 (09:47→21:37)
[2021-03-08] MEDS: LORazepam 2 MG/1 ML VIAL IV PRN (12:09)
[2021-03-08] MEDS: SIMVASTATIN 10 MG TABLET PO SCH (20:19)
[2021-03-09] MEDS: ALBUTEROL/IPRATROPIUM 3 ML NEB RESP TX SCH ×6 (00:41→19:18)
[2021-03-09] MEDS: INSULIN LISPRO 100 UNIT/ML SUBCUT SCH ×4 (01:20→18:45)
[2021-03-09] MEDS: DEXMEDETOMIDINE 400 MCG in SODIUM CHLORIDE 0.9% 96 ML IV PRN ×3 (01:21→21:38)
[2021-03-09 03:29] LABS: Basophils % 0.2 % (0.0-0.8); Hematocrit 35.6 VOL% (42.0-52.0); Hemoglobin 11.8 GM/DL (14.0-18.0); Immature Granulocytes % 0.5 %; Immature Granulocytes Absolute 0.06 #; Lymphocytes # 0.5 10*3/uL (1.4-4.0); Lymphocytes % 4.9 % (21.2-54.2); Mean Corpuscular HGB Conc 33.1 GM/DL (32-36); Mean Corpuscular Volume 84.2 FL (87-102); Monocytes % 4.4 % (1.7-12.7); Red Blood Count 4.23 MC/CUMM (3.8-5.5); Red Cell Distribution Width 23.2 % (9.3-17.3); White Blood Count 11.1 T/CUMM (4-12)
[2021-03-09 03:35] LABS: Platelet Count 32 T/CUMM (130-400)
[2021-03-09 03:45] LABS: Calcium 9.6 MG/DL (8.5-10.1); Potassium 3.3 MMOL/L (3.5-5.1)
[2021-03-09 03:55] LABS: Lymphocytes 5 % (20-55); Platelet Estimate Decreased; Segmented Neutrophils 93 % (50-85); Total Cells Counted 100
[2021-03-09 04:31] LABS: ABG HCO3 24.5 MMOL/L (20-26); ABG Oxygen Saturation 98.5 % (95-100); ABG PCO2 32.1 MM HG (35-48); ABG PH 7.465 (7.35-7.45); ABG TCO2 20.3 MMOL/L (23-27); Allen Test Positive; Pt O2 Delivery Device Ventilator
[2021-03-09] MEDS: ALBUMIN 25% 25 GM/100 ML VIAL IV SCH ×2 (04:33→12:52)
[2021-03-09] MEDS: METOCLOPRAMIDE 10 MG/2 ML VIAL IV SCH ×4 (05:41→18:45)
[2021-03-09] MEDS: POTASSIUM CHLORIDE RIDER 10 MEQ/100 ML PREMIX IV PRN ×2 (07:15→08:15)
[2021-03-09] MEDS: POLYETHYLENE GLYCOL POWDER 17 GM PACK PO SCH (08:48)
[2021-03-09] MEDS: busPIRone 5 MG TABLET PO SCH ×2 (08:48→21:02)
[2021-03-09] MEDS: MULTIVITAMIN LIQUID (CENTRUM) 60 ML BOTTLE PER TUBE SCH (08:48)
[2021-03-09] MEDS: DOCUSATE SODIUM 100 MG/10 ML UDCUP PER TUBE SCH ×2 (08:48→21:02)
[2021-03-09] MEDS: FAMOTIDINE 20 MG/2 ML VIAL IV SCH (08:48)
[2021-03-09] MEDS: TRIAMCINOLONE 0.1% CREAM 15 GM TUBE TOP SCH ×2 (08:48→21:02)
[2021-03-09] MEDS: AMIODARONE 200 MG TABLET PO SCH (08:48)
[2021-03-09] MEDS: POTASSIUM CHLORIDE 20 MEQ/15 ML UDCUP PER TUBE SCH (08:49)
[2021-03-09] MEDS: buPROPion 75 MG TABLET PO SCH ×2 (08:49→21:02)
[2021-03-09] MEDS: DEXTROSE 5% 1,000 ML IV SCH ×3 (09:40→22:30)
[2021-03-09] MEDS: methylPREDNISolone SOD SUC 40 MG/1 ML VIAL IV SCH ×2 (10:27→22:30)
[2021-03-09] MEDS ORDERED: SODIUM PHOSPHATE ENEMA 133 ML BOTTLE RECTAL ONE (17:15)
[2021-03-09] MEDS: SIMVASTATIN 10 MG TABLET PO SCH (21:02)
[2021-03-10] MEDS: ALBUTEROL/IPRATROPIUM 3 ML NEB RESP TX SCH ×7 (00:01→23:00)
[2021-03-10] MEDS: INSULIN LISPRO 100 UNIT/ML SUBCUT SCH ×4 (00:25→18:05)
[2021-03-10] MEDS: METOCLOPRAMIDE 10 MG/2 ML VIAL IV SCH ×4 (00:25→18:05)
[2021-03-10] MEDS: DEXTROSE 5% 1,000 ML IV SCH ×3 (00:25→19:41)
[2021-03-10 04:14] LABS: ABG Base Excess -0.6 MMOL/L (-2.5-2.5); ABG Oxygen Saturation 99.6 % (95-100); ABG PCO2 32.1 MM HG (35-48); ABG PH 7.454 (7.35-7.45); ABG TCO2 19.7 MMOL/L (23-27); Allen Test Positive; Pt O2 Delivery Device Ventilator
[2021-03-10 04:20] LABS: Basophils % 0.1 % (0.0-0.8); Hemoglobin 12.2 GM/DL (14.0-18.0); Immature Granulocytes % 0.7 %; Immature Granulocytes Absolute 0.08 #; Lymphocytes # 0.4 10*3/uL (1.4-4.0); Mean Corpuscular HGB Conc 32.1 GM/DL (32-36); Mean Corpuscular Volume 85.8 FL (87-102); Neutrophils % 92.2 % (38.7-73.9); Red Blood Count 4.43 MC/CUMM (3.8-5.5); Red Cell Distribution Width 23.6 % (9.3-17.3); White Blood Count 10.9 T/CUMM (4-12)
[2021-03-10 04:24] LABS: Platelet Count 27 T/CUMM (130-400)
[2021-03-10 04:42] LABS: Lymphocytes 3 % (20-55); Platelet Estimate Decreased; Segmented Neutrophils 94 % (50-85); Total Cells Counted 100
[2021-03-10 04:43] LABS: Acanthocytes Few; Hypochromasia Slight
[2021-03-10 04:44] LABS: Albumin 3.7 G/DL (3.4-5.0); Bilirubin,Total 2.5 MG/DL (0.2-1.0); Calcium 9.2 MG/DL (8.5-10.1); Osmolality,Calculated 373.6 MOS/KG (273-304); Potassium 3.6 MMOL/L (3.5-5.1); Total Protein 5.8 G/DL (6.4-8.2)
[2021-03-10] MEDS ORDERED: DEXTROSE 5% NACL 0.45% 1,000 ML IV SCH (05:15)
[2021-03-10] MEDS: POTASSIUM CHLORIDE RIDER 10 MEQ/100 ML PREMIX IV PRN (05:50)
[2021-03-10] MEDS: DEXMEDETOMIDINE 400 MCG in SODIUM CHLORIDE 0.9% 96 ML IV PRN ×2 (05:52→15:50)
[2021-03-10] MEDS: FAMOTIDINE 20 MG/2 ML VIAL IV SCH (09:10)
[2021-03-10] MEDS: methylPREDNISolone SOD SUC 40 MG/1 ML VIAL IV SCH ×2 (09:10→22:57)
[2021-03-10] MEDS: POTASSIUM CHLORIDE 20 MEQ/15 ML UDCUP PER TUBE SCH (09:10)
[2021-03-10] MEDS: busPIRone 5 MG TABLET PO SCH ×2 (09:10→21:03)
[2021-03-10] MEDS: buPROPion 75 MG TABLET PO SCH ×2 (09:10→21:03)
[2021-03-10] MEDS: POLYETHYLENE GLYCOL POWDER 17 GM PACK PO SCH (09:10)
[2021-03-10] MEDS: MULTIVITAMIN LIQUID (CENTRUM) 60 ML BOTTLE PER TUBE SCH (09:10)
[2021-03-10] MEDS: AMIODARONE 200 MG TABLET PO SCH (09:10)
[2021-03-10] MEDS: DOCUSATE SODIUM 100 MG/10 ML UDCUP PER TUBE SCH ×2 (09:10→21:03)
[2021-03-10] MEDS: TRIAMCINOLONE 0.1% CREAM 15 GM TUBE TOP SCH ×2 (11:15→21:03)
[2021-03-10 18:10] LABS: ABG Base Excess -0.8 MMOL/L (-2.5-2.5); ABG HCO3 23.6 MMOL/L (20-26); ABG Oxygen Saturation 94.5 % (95-100); ABG PCO2 32.8 MM HG (35-48); ABG PH 7.443 (7.35-7.45); ABG TCO2 19.6 MMOL/L (23-27); Allen Test Positive; Pt O2 Delivery Device Ventilator
[2021-03-10] MEDS: SIMVASTATIN 10 MG TABLET PO SCH (21:03)
[2021-03-11] MEDS: INSULIN LISPRO 100 UNIT/ML SUBCUT SCH ×4 (00:15→18:00)
[2021-03-11] MEDS: METOCLOPRAMIDE 10 MG/2 ML VIAL IV SCH ×4 (00:16→18:00)
[2021-03-11] MEDS: DEXMEDETOMIDINE 400 MCG in SODIUM CHLORIDE 0.9% 96 ML IV PRN ×3 (00:18→18:00)
[2021-03-11 03:14] LABS: ABG HCO3 23.6 MMOL/L (20-26); ABG Oxygen Saturation 99.4 % (95-100); ABG PCO2 32.6 MM HG (35-48); ABG PH 7.443 (7.35-7.45); ABG TCO2 19.5 MMOL/L (23-27)
[2021-03-11] MEDS: ALBUTEROL/IPRATROPIUM 3 ML NEB RESP TX SCH ×5 (04:50→19:17)
[2021-03-11 05:05] LABS: Basophils % 0.1 % (0.0-0.8); Hematocrit 38.9 VOL% (42.0-52.0); Hemoglobin 12.4 GM/DL (14.0-18.0); Immature Granulocytes % 0.9 %; Immature Granulocytes Absolute 0.11 #; Lymphocytes # 0.4 10*3/uL (1.4-4.0); Lymphocytes % 3.5 % (21.2-54.2); Mean Corpuscular HGB Conc 31.9 GM/DL (32-36); Mean Corpuscular Volume 85.9 FL (87-102); Monocytes % 2.6 % (1.7-12.7); Neutrophils % 92.9 % (38.7-73.9); Red Blood Count 4.53 MC/CUMM (3.8-5.5); Red Cell Distribution Width 23.4 % (9.3-17.3); White Blood Count 11.6 T/CUMM (4-12)
[2021-03-11 05:22] LABS: Platelet Count 31 T/CUMM (130-400)
[2021-03-11 05:30] LABS: Burr Cells Slight; Lymphocytes 4 % (20-55); Ovalocytes Slight; Platelet Estimate Decreased; Segmented Neutrophils 95 % (50-85); Total Cells Counted 100
[2021-03-11 05:31] LABS: Acanthocytes Few
[2021-03-11 05:48] LABS: Albumin 3.5 G/DL (3.4-5.0); Calcium 9.2 MG/DL (8.5-10.1); Potassium 3.5 MMOL/L (3.5-5.1); Total Protein 5.8 G/DL (6.4-8.2)
[2021-03-11] MEDS: methylPREDNISolone SOD SUC 40 MG/1 ML VIAL IV SCH ×2 (08:20→22:35)
[2021-03-11] MEDS: FAMOTIDINE 20 MG/2 ML VIAL IV SCH (08:20)
[2021-03-11] MEDS: MULTIVITAMIN LIQUID (CENTRUM) 60 ML BOTTLE PER TUBE SCH (08:30)
[2021-03-11] MEDS: POTASSIUM CHLORIDE 20 MEQ/15 ML UDCUP PER TUBE SCH (08:30)
[2021-03-11] MEDS: AMIODARONE 200 MG TABLET PO SCH (08:30)
[2021-03-11] MEDS: DOCUSATE SODIUM 100 MG/10 ML UDCUP PER TUBE SCH ×2 (08:30→21:44)
[2021-03-11] MEDS: busPIRone 5 MG TABLET PO SCH ×2 (08:30→21:44)
[2021-03-11] MEDS: buPROPion 75 MG TABLET PO SCH ×2 (08:30→21:44)
[2021-03-11] MEDS: POLYETHYLENE GLYCOL POWDER 17 GM PACK PO SCH (08:30)
[2021-03-11] MEDS: DEXTROSE 5% 1,000 ML IV SCH ×2 (08:45→17:30)
[2021-03-11] MEDS: TRIAMCINOLONE 0.1% CREAM 15 GM TUBE TOP SCH ×2 (09:15→21:44)
[2021-03-11] MEDS: MORPHINE 4 MG/1 ML VIAL IV PRN ×2 (13:55→18:05)
[2021-03-11] MEDS ORDERED: DEXTROSE 10% 1,000 ML IV PRN (17:18)
[2021-03-11] MEDS: FAT EMULSION 20% 250 ML IV SCH (18:15)
[2021-03-11] MEDS: AMINO ACIDS/DEXT/LYTES 4.25-5% 2,000 ML IV SCH (18:15)
[2021-03-11] MEDS ORDERED: DEXTROSE 5% 1,000 ML IV SCH (18:40)
[2021-03-11 19:00] VITALS: BP 103/70
[2021-03-11] MEDS: SIMVASTATIN 10 MG TABLET PO SCH (21:44)
[2021-03-12] MEDS: INSULIN LISPRO 100 UNIT/ML SUBCUT SCH ×4 (00:01→18:00)
[2021-03-12] MEDS: METOCLOPRAMIDE 10 MG/2 ML VIAL IV SCH ×4 (00:01→18:01)
[2021-03-12] MEDS: ALBUTEROL/IPRATROPIUM 3 ML NEB RESP TX SCH ×7 (00:18→23:46)
[2021-03-12] MEDS: DEXMEDETOMIDINE 400 MCG in SODIUM CHLORIDE 0.9% 96 ML IV PRN (02:50)
[2021-03-12 03:20] LABS: ABG Base Excess -0.9 MMOL/L (-2.5-2.5); ABG HCO3 23.6 MMOL/L (20-26); ABG Oxygen Saturation 97.9 % (95-100); ABG PCO2 30.4 MM HG (35-48); ABG PH 7.466 (7.35-7.45); ABG TCO2 19.3 MMOL/L (23-27)
[2021-03-12 06:00] LABS: Basophils % 0.1 % (0.0-0.8); Hematocrit 36.2 VOL% (42.0-52.0); Immature Granulocytes % 0.4 %; Immature Granulocytes Absolute 0.05 #; Lymphocytes # 0.3 10*3/uL (1.4-4.0); Lymphocytes % 2.4 % (21.2-54.2); Mean Corpuscular HGB Conc 33.1 GM/DL (32-36); Monocytes % 1.6 % (1.7-12.7); Neutrophils % 95.5 % (38.7-73.9); Red Blood Count 4.26 MC/CUMM (3.8-5.5); Red Cell Distribution Width 23.4 % (9.3-17.3); White Blood Count 11.3 T/CUMM (4-12)
[2021-03-12 06:11] LABS: Platelet Count 30 T/CUMM (130-400)
[2021-03-12 06:18] LABS: Lymphocytes 2 % (20-55); Platelet Estimate Decreased; Segmented Neutrophils 98 % (50-85); Total Cells Counted 100
[2021-03-12 06:19] LABS: Burr Cells Slight; Ovalocytes Slight
[2021-03-12 08:29] LABS: Osmolality,Calculated 350.7 MOS/KG (273-304); Potassium 3.7 MMOL/L (3.5-5.1)
[2021-03-12] MEDS: AMIODARONE 200 MG TABLET PO SCH (09:30)
[2021-03-12] MEDS: busPIRone 5 MG TABLET PO SCH ×2 (09:30→21:50)
[2021-03-12] MEDS: buPROPion 75 MG TABLET PO SCH ×2 (09:30→21:50)
[2021-03-12] MEDS: DOCUSATE SODIUM 100 MG/10 ML UDCUP PER TUBE SCH ×2 (09:31→21:50)
[2021-03-12] MEDS: POLYETHYLENE GLYCOL POWDER 17 GM PACK PO SCH (09:31)
[2021-03-12] MEDS: POTASSIUM CHLORIDE 20 MEQ/15 ML UDCUP PER TUBE SCH (09:31)
[2021-03-12] MEDS: MULTIVITAMIN LIQUID (CENTRUM) 60 ML BOTTLE PER TUBE SCH (09:31)
[2021-03-12] MEDS: FAMOTIDINE 20 MG/2 ML VIAL IV SCH (09:42)
[2021-03-12] MEDS: MEROPENEM 500 MG in SODIUM CHLORIDE 0.9% 100 ML IV SCH ×3 (09:44→21:50)
[2021-03-12] MEDS: methylPREDNISolone SOD SUC 40 MG/1 ML VIAL IV SCH ×3 (10:00→22:57)
[2021-03-12] MEDS: TRIAMCINOLONE 0.1% CREAM 15 GM TUBE TOP SCH ×2 (10:33→22:56)
[2021-03-12] MEDS: PROPRANOLOL 10 MG TABLET PO SCH ×3 (13:00→21:50)
[2021-03-12] MEDS: FAT EMULSION 20% 250 ML IV SCH (14:43)
[2021-03-12] MEDS: AMINO ACIDS/DEXT/LYTES 4.25-5% 2,000 ML IV SCH (17:45)
[2021-03-12] MEDS: SIMVASTATIN 10 MG TABLET PO SCH (21:50)
[2021-03-12 22:51] LABS: ABG Base Excess -5.7 MMOL/L (-2.5-2.5); ABG HCO3 19.7 MMOL/L (20-26); ABG Oxygen Saturation 94.7 % (95-100); ABG PCO2 58.9 MM HG (35-48); ABG PO2 94.6 MM HG (80-95); ABG TCO2 21.2 MMOL/L (23-27)
[2021-03-12 22:53] LABS: ABG PH 7.208 (7.35-7.45)
[2021-03-13] MEDS: METOCLOPRAMIDE 10 MG/2 ML VIAL IV SCH ×5 (00:45→23:52)
[2021-03-13] MEDS: INSULIN LISPRO 100 UNIT/ML SUBCUT SCH ×5 (00:45→23:52)
[2021-03-13] MEDS: MEROPENEM 500 MG in SODIUM CHLORIDE 0.9% 100 ML IV SCH ×4 (02:09→20:20)
[2021-03-13] MEDS: ALBUTEROL/IPRATROPIUM 3 ML NEB RESP TX SCH ×6 (03:24→23:03)
[2021-03-13 04:05] LABS: Calcium 8.8 MG/DL (8.5-10.1); Osmolality,Calculated 350.4 MOS/KG (273-304); Potassium 3.9 MMOL/L (3.5-5.1)
[2021-03-13 04:16] LABS: Bilirubin,Total 2.6 MG/DL (0.2-1.0)
[2021-03-13 04:24] LABS: ABG Base Excess -0.5 MMOL/L (-2.5-2.5); ABG Oxygen Saturation 98.6 % (95-100); ABG PCO2 30.8 MM HG (35-48); ABG PH 7.468 (7.35-7.45); ABG TCO2 19.5 MMOL/L (23-27); Allen Test Positive; Pt O2 Delivery Device BIPAP
[2021-03-13] MEDS: FAMOTIDINE 20 MG/2 ML VIAL IV SCH (09:01)
[2021-03-13] MEDS: buPROPion 75 MG TABLET PO SCH ×2 (09:01→20:20)
[2021-03-13] MEDS: DOCUSATE SODIUM 100 MG/10 ML UDCUP PER TUBE SCH ×2 (09:01→20:20)
[2021-03-13] MEDS: POTASSIUM CHLORIDE 20 MEQ/15 ML UDCUP PER TUBE SCH (09:02)
[2021-03-13] MEDS: busPIRone 5 MG TABLET PO SCH ×2 (09:02→20:20)
[2021-03-13] MEDS: AMIODARONE 200 MG TABLET PO SCH (09:02)
[2021-03-13] MEDS: PROPRANOLOL 10 MG TABLET PO SCH ×3 (09:02→20:19)
[2021-03-13] MEDS: MULTIVITAMIN LIQUID (CENTRUM) 60 ML BOTTLE PER TUBE SCH (09:03)
[2021-03-13] MEDS: POLYETHYLENE GLYCOL POWDER 17 GM PACK PO SCH (09:05)
[2021-03-13] MEDS: methylPREDNISolone SOD SUC 40 MG/1 ML VIAL IV SCH ×2 (09:30→22:45)
[2021-03-13] MEDS: FAT EMULSION 20% 250 ML IV SCH (14:40)
[2021-03-13] MEDS: MULTIVITAMIN INJ 10 ML in AMINO ACIDS/DEXT/LYTES 4.25-5% 2,000 ML IV SCH (18:16)
[2021-03-13] MEDS: SIMVASTATIN 10 MG TABLET PO SCH (20:19)
[2021-03-14] MEDS: MEROPENEM 500 MG in SODIUM CHLORIDE 0.9% 100 ML IV SCH ×4 (03:15→21:10)
[2021-03-14] MEDS: ALBUTEROL/IPRATROPIUM 3 ML NEB RESP TX SCH ×6 (03:20→23:15)
[2021-03-14 04:33] LABS: Basophils % 0.1 % (0.0-0.8); Hematocrit 37.3 VOL% (42.0-52.0); Hemoglobin 11.9 GM/DL (14.0-18.0); Immature Granulocytes % 0.8 %; Immature Granulocytes Absolute 0.13 #; Lymphocytes # 0.3 10*3/uL (1.4-4.0); Lymphocytes % 1.5 % (21.2-54.2); Mean Corpuscular HGB Conc 31.9 GM/DL (32-36); Mean Corpuscular Volume 85.9 FL (87-102); Neutrophils % 95.6 % (38.7-73.9); Platelet Count 42 T/CUMM (130-400); Red Blood Count 4.34 MC/CUMM (3.8-5.5); Red Cell Distribution Width 23.1 % (9.3-17.3); White Blood Count 17.2 T/CUMM (4-12)
[2021-03-14 04:54] LABS: Calcium 9.1 MG/DL (8.5-10.1); Osmolality,Calculated 359.9 MOS/KG (273-304); Potassium 3.9 MMOL/L (3.5-5.1)
[2021-03-14] MEDS: METOCLOPRAMIDE 10 MG/2 ML VIAL IV SCH ×3 (06:12→17:50)
[2021-03-14] MEDS: INSULIN LISPRO 100 UNIT/ML SUBCUT SCH ×3 (06:14→17:50)
[2021-03-14 06:35] LABS: Band Neutrophils 1 % (0-10); Lymphocytes 2 % (20-55); Microcytosis 1+; Platelet Estimate Decreased; Segmented Neutrophils 97 % (50-85); Target Cells Few; Total Cells Counted 100
[2021-03-14 06:36] LABS: Hypochromasia 1+; Schistocytes Few
[2021-03-14] MEDS: DOCUSATE SODIUM 100 MG/10 ML UDCUP PER TUBE SCH ×2 (08:41→21:10)
[2021-03-14] MEDS: MULTIVITAMIN LIQUID (CENTRUM) 60 ML BOTTLE PER TUBE SCH (08:41)
[2021-03-14] MEDS: busPIRone 5 MG TABLET PO SCH ×2 (08:41→21:09)
[2021-03-14] MEDS: buPROPion 75 MG TABLET PO SCH ×2 (08:42→21:09)
[2021-03-14] MEDS: AMIODARONE 200 MG TABLET PO SCH (08:42)
[2021-03-14] MEDS: POLYETHYLENE GLYCOL POWDER 17 GM PACK PO SCH (08:42)
[2021-03-14] MEDS: PROPRANOLOL 10 MG TABLET PO SCH ×3 (08:42→21:10)
[2021-03-14] MEDS: POTASSIUM CHLORIDE 20 MEQ/15 ML UDCUP PER TUBE SCH (08:42)
[2021-03-14] MEDS: FAMOTIDINE 20 MG/2 ML VIAL IV SCH (08:42)
[2021-03-14] MEDS: methylPREDNISolone SOD SUC 40 MG/1 ML VIAL IV SCH ×2 (09:35→23:10)
[2021-03-14] MEDS: DEXTROSE 5% 1,000 ML IV SCH (10:18)
[2021-03-14] MEDS: FAT EMULSION 20% 250 ML IV SCH (15:02)
[2021-03-14] MEDS: MULTIVITAMIN INJ 10 ML in AMINO ACIDS/DEXT/LYTES 4.25-5% 2,000 ML IV SCH (17:52)
[2021-03-14] MEDS: SIMVASTATIN 10 MG TABLET PO SCH (21:10)
[2021-03-15] MEDS: INSULIN LISPRO 100 UNIT/ML SUBCUT SCH ×4 (00:45→17:38)
[2021-03-15] MEDS: METOCLOPRAMIDE 10 MG/2 ML VIAL IV SCH ×4 (00:50→17:40)
[2021-03-15] MEDS: ALBUTEROL/IPRATROPIUM 3 ML NEB RESP TX SCH ×6 (03:10→23:20)
[2021-03-15] MEDS: MEROPENEM 500 MG in SODIUM CHLORIDE 0.9% 100 ML IV SCH ×4 (03:45→20:29)
[2021-03-15 04:21] LABS: Basophils % 0.1 % (0.0-0.8); Hematocrit 37.1 VOL% (42.0-52.0); Hemoglobin 11.5 GM/DL (14.0-18.0); Immature Granulocytes % 0.8 %; Immature Granulocytes Absolute 0.16 #; Lymphocytes # 0.3 10*3/uL (1.4-4.0); Lymphocytes % 1.7 % (21.2-54.2); Mean Corpuscular Volume 88.3 FL (87-102); Monocytes % 3.3 % (1.7-12.7); Neutrophils % 94.1 % (38.7-73.9); Platelet Count 53 T/CUMM (130-400); Red Cell Distribution Width 23.4 % (9.3-17.3); White Blood Count 19.5 T/CUMM (4-12)
[2021-03-15 04:46] LABS: Calcium 8.5 MG/DL (8.5-10.1); Osmolality,Calculated 361.9 MOS/KG (273-304); Platelet Estimate Decreased; Potassium 4.4 MMOL/L (3.5-5.1); Segmented Neutrophils 98 % (50-85); Total Cells Counted 100
[2021-03-15 04:50] LABS: Albumin 3.2 G/DL (3.4-5.0); Bilirubin,Total 2.4 MG/DL (0.2-1.0); Calcium 8.8 MG/DL (8.5-10.1); Osmolality,Calculated 357.2 MOS/KG (273-304); Potassium 4.3 MMOL/L (3.5-5.1); Total Protein 5.7 G/DL (6.4-8.2)
[2021-03-15] MEDS: DEXTROSE 5% 1,000 ML IV SCH (08:36)
[2021-03-15] MEDS: DOCUSATE SODIUM 100 MG/10 ML UDCUP PER TUBE SCH ×2 (08:55→20:29)
[2021-03-15] MEDS: busPIRone 5 MG TABLET PO SCH ×2 (08:55→20:30)
[2021-03-15] MEDS: AMIODARONE 200 MG TABLET PO SCH (08:55)
[2021-03-15] MEDS: PROPRANOLOL 10 MG TABLET PO SCH ×3 (08:55→20:30)
[2021-03-15] MEDS: FAMOTIDINE 20 MG/2 ML VIAL IV SCH (09:00)
[2021-03-15] MEDS: buPROPion 75 MG TABLET PO SCH ×2 (09:00→20:29)
[2021-03-15] MEDS: POTASSIUM CHLORIDE 20 MEQ/15 ML UDCUP PER TUBE SCH (09:00)
[2021-03-15] MEDS: POLYETHYLENE GLYCOL POWDER 17 GM PACK PO SCH (09:00)
[2021-03-15] MEDS: methylPREDNISolone SOD SUC 40 MG/1 ML VIAL IV SCH ×2 (10:41→22:10)
[2021-03-15] MEDS: FAT EMULSION 20% 250 ML IV SCH (14:45)
[2021-03-15] MEDS: MULTIVITAMIN INJ 10 ML in AMINO ACIDS/DEXT/LYTES 4.25-5% 2,000 ML IV SCH (17:44)
[2021-03-15] MEDS: SIMVASTATIN 10 MG TABLET PO SCH (20:29)
[2021-03-16] MEDS: METOCLOPRAMIDE 10 MG/2 ML VIAL IV SCH ×4 (00:35→18:38)
[2021-03-16] MEDS: INSULIN LISPRO 100 UNIT/ML SUBCUT SCH ×4 (00:37→18:35)
[2021-03-16] MEDS: ALBUTEROL/IPRATROPIUM 3 ML NEB RESP TX SCH ×6 (01:22→23:15)
[2021-03-16] MEDS: MEROPENEM 500 MG in SODIUM CHLORIDE 0.9% 100 ML IV SCH ×4 (03:01→21:32)
[2021-03-16 05:08] LABS: Basophils % 0.1 % (0.0-0.8); Hematocrit 38.1 VOL% (42.0-52.0); Hemoglobin 11.9 GM/DL (14.0-18.0); Immature Granulocytes % 0.6 %; Immature Granulocytes Absolute 0.11 #; Lymphocytes # 0.5 10*3/uL (1.4-4.0); Lymphocytes % 2.9 % (21.2-54.2); Mean Corpuscular HGB Conc 31.2 GM/DL (32-36); Mean Corpuscular Volume 88.6 FL (87-102); Neutrophils % 92.4 % (38.7-73.9); Platelet Count 59 T/CUMM (130-400); Red Cell Distribution Width 23.4 % (9.3-17.3); White Blood Count 17.7 T/CUMM (4-12)
[2021-03-16 05:10] LABS: Bilirubin,Total 2.6 MG/DL (0.2-1.0); Calcium 8.8 MG/DL (8.5-10.1); Osmolality,Calculated 353.6 MOS/KG (273-304); Total Protein 5.6 G/DL (6.4-8.2)
[2021-03-16 05:32] LABS: Lymphocytes 3 % (20-55); Platelet Estimate Decreased; Segmented Neutrophils 95 % (50-85); Total Cells Counted 100
[2021-03-16 05:33] LABS: Burr Cells Slight; Hypochromasia Slight; Ovalocytes Slight
[2021-03-16] MEDS: DOCUSATE SODIUM 100 MG/10 ML UDCUP PER TUBE SCH ×2 (09:45→21:32)
[2021-03-16] MEDS: busPIRone 5 MG TABLET PO SCH ×2 (09:45→21:31)
[2021-03-16] MEDS: AMIODARONE 200 MG TABLET PO SCH (09:45)
[2021-03-16] MEDS: POLYETHYLENE GLYCOL POWDER 17 GM PACK PO SCH (09:45)
[2021-03-16] MEDS: PROPRANOLOL 10 MG TABLET PO SCH ×3 (09:45→21:31)
[2021-03-16] MEDS: buPROPion 75 MG TABLET PO SCH ×2 (09:47→21:32)
[2021-03-16] MEDS: FAMOTIDINE 20 MG/2 ML VIAL IV SCH (09:47)
[2021-03-16] MEDS: POTASSIUM CHLORIDE 20 MEQ/15 ML UDCUP PER TUBE SCH (09:51)
[2021-03-16] MEDS: DEXTROSE 5% 1,000 ML IV SCH (10:35)
[2021-03-16] MEDS: methylPREDNISolone SOD SUC 40 MG/1 ML VIAL IV SCH ×2 (10:37→22:45)
[2021-03-16] MEDS: FAT EMULSION 20% 250 ML IV SCH (14:12)
[2021-03-16] MEDS: MULTIVITAMIN INJ 10 ML in AMINO ACIDS/DEXT/LYTES 4.25-5% 2,000 ML IV SCH (18:38)
[2021-03-16] MEDS: SIMVASTATIN 10 MG TABLET PO SCH (21:32)
[2021-03-17] MEDS: INSULIN LISPRO 100 UNIT/ML SUBCUT SCH ×4 (00:14→17:45)
[2021-03-17] MEDS: METOCLOPRAMIDE 10 MG/2 ML VIAL IV SCH ×4 (00:15→17:45)
[2021-03-17] MEDS: ALBUTEROL/IPRATROPIUM 3 ML NEB RESP TX SCH ×6 (03:32→23:18)
[2021-03-17] MEDS: MEROPENEM 500 MG in SODIUM CHLORIDE 0.9% 100 ML IV SCH ×4 (03:55→20:43)
[2021-03-17 05:27] LABS: Bilirubin,Total 2.4 MG/DL (0.2-1.0); Calcium 8.6 MG/DL (8.5-10.1); Osmolality,Calculated 348.1 MOS/KG (273-304); Potassium 4.9 MMOL/L (3.5-5.1); Total Protein 5.5 G/DL (6.4-8.2)
[2021-03-17] MEDS: DEXTROSE 5% 1,000 ML IV SCH ×2 (06:52→10:06)
[2021-03-17] MEDS: POLYETHYLENE GLYCOL POWDER 17 GM PACK PO SCH (08:57)
[2021-03-17] MEDS: buPROPion 75 MG TABLET PO SCH ×2 (08:57→20:42)
[2021-03-17] MEDS: AMIODARONE 200 MG TABLET PO SCH (08:57)
[2021-03-17] MEDS: DOCUSATE SODIUM 100 MG/10 ML UDCUP PER TUBE SCH ×2 (08:57→20:42)
[2021-03-17] MEDS: busPIRone 5 MG TABLET PO SCH ×2 (08:57→20:43)
[2021-03-17] MEDS: PROPRANOLOL 10 MG TABLET PO SCH ×3 (08:57→20:43)
[2021-03-17] MEDS: FAMOTIDINE 20 MG/2 ML VIAL IV SCH (08:58)
[2021-03-17] MEDS: methylPREDNISolone SOD SUC 40 MG/1 ML VIAL IV SCH ×2 (10:10→22:46)
[2021-03-17] MEDS: FAT EMULSION 20% 250 ML IV SCH (14:41)
[2021-03-17] MEDS: MULTIVITAMIN INJ 10 ML in AMINO ACIDS/DEXT/LYTES 4.25-5% 2,000 ML IV SCH (18:06)
[2021-03-17] MEDS: SIMVASTATIN 10 MG TABLET PO SCH (20:43)
[2021-03-18] MEDS: METOCLOPRAMIDE 10 MG/2 ML VIAL IV SCH ×3 (00:14→12:16)
[2021-03-18] MEDS: INSULIN LISPRO 100 UNIT/ML SUBCUT SCH ×3 (00:16→11:36)
[2021-03-18] MEDS: MEROPENEM 500 MG in SODIUM CHLORIDE 0.9% 100 ML IV SCH ×2 (02:33→09:05)
[2021-03-18] MEDS: ALBUTEROL/IPRATROPIUM 3 ML NEB RESP TX SCH ×3 (03:30→10:55)
[2021-03-18] MEDS: DEXTROSE 5% 1,000 ML IV SCH (06:07)
[2021-03-18] MEDS: busPIRone 5 MG TABLET PO SCH (09:08)
[2021-03-18] MEDS: POLYETHYLENE GLYCOL POWDER 17 GM PACK PO SCH (09:09)
[2021-03-18] MEDS: DOCUSATE SODIUM 100 MG/10 ML UDCUP PER TUBE SCH (09:09)
[2021-03-18] MEDS: PROPRANOLOL 10 MG TABLET PO SCH (09:09)
[2021-03-18] MEDS: AMIODARONE 200 MG TABLET PO SCH (09:09)
[2021-03-18] MEDS: buPROPion 75 MG TABLET PO SCH (09:09)
[2021-03-18] MEDS: FAMOTIDINE 20 MG/2 ML VIAL IV SCH (09:10)
[2021-03-18 09:57] LABS: Albumin 2.4 G/DL (3.4-5.0); Bilirubin,Total 2.1 MG/DL (0.2-1.0); Calcium 8.5 MG/DL (8.5-10.1); Osmolality,Calculated 329.3 MOS/KG (273-304); Potassium 5.5 MMOL/L (3.5-5.1); Total Protein 5.4 G/DL (6.4-8.2)
[2021-03-18] MEDS: MORPHINE 4 MG/1 ML VIAL IV PRN (10:29)
[2021-03-18] MEDS: methylPREDNISolone SOD SUC 40 MG/1 ML VIAL IV SCH (10:35)
[2021-03-18] MEDS ORDERED: MORPHINE 4 MG/1 ML VIAL IV ONE (12:25)
== END 2021-03-18 12:40 | disposition expired | DRG 870 ==
LOC: EDUNIT# → EDBD → N.ED 12:45 → SUATTDRO 14:35 → N.EDINP 14:35 → N.3E 15:19 → N.ICU 02-23 19:36
PROVIDERS: ADMIT Internal Medicine; ATTEND Internal Medicine